=== PATIENT | female | born 1935 | race Caucasian/White ===

== ENCOUNTER 2017-05-17 10:46 | Emergency (ER) | payer BC, MEDICARE ==
--- NOTE | 2017-05-17 11:23 | ED ---
General Adult HPI - General Chief complaint: Chest Pain Stated complaint: Left side pain Time Seen by Provider: 05/17/17 11:06 Source: patient, RN notes reviewed, old records reviewed Mode of arrival: ambulatory Limitations: no limitations - History of Present Illness Initial comments: This is a 41-year-old female in the ER with left flank pain, left-sided rib pain , although it's her groin. Patient is a blood pressure. No history of heart disease or aortic issues. No history of kidney stones, no dysuria. No fevers. No bowel pain denies vomiting or diarrhea. Patient has not taken anything for pain. This is the third time patient states she's been evaluated in the emergency room for this pain. Never coming up with a A specific reason. At this time patient does have pain again on her left side, worse with movement - Related Data Home Medications Medication Instructions Recorded Confirmed Albuterol Inhaler [Ventolin Hfa 2 puff INHALATION RT-QID PRN 05/17/17 05/17/17 Inhaler] Fluticasone Nasal [place] [Flonase 2 sprays EA NOSTRIL DAILY 05/17/17 05/17/17 Nasal [place]] Fluticasone/Salmeterol [Advair 1 puff INHALATION RT-BID 05/17/17 05/17/17 100-50 Diskus] Furosemide [Lasix] 40 mg PO DAILY 05/17/17 05/17/17 Lisinopril [Lisinopril] 40 mg PO DAILY 05/17/17 05/17/17 Loratadine [Claritin] 10 mg PO DAILY 05/17/17 05/17/17 Simvastatin [Simvastatin] 40 mg PO HS 05/17/17 05/17/17 amLODIPine [Norvasc] 10 mg PO DAILY 05/17/17 05/17/17 Allergies Allergy/AdvReac Type Severity Reaction Status Date / Time No Known Allergies Allergy Verified 05/17/17 11:00 Review of Systems ROS Statement: Those systems with pertinent positive or pertinent negative responses have been documented in the HPI. ROS Other: All systems not noted in ROS Statement are negative. Past Medical History Past Medical History: Heart Failure, COPD, Hyperlipidemia, Hypertension History of Any Multi-Drug Resistant Organisms: None Reported Past Surgical History: Tubal Ligation Past Psychological History: No Psychological Hx Reported Smoking Status: Current every day smoker Past Alcohol Use History: Rare Past Drug Use History: None Reported General Exam Limitations: no limitations General appearance: alert, in no apparent distress Head exam: Present: atraumatic, normocephalic, normal inspection Eye exam: Present: normal appearance, PERRL, EOMI. Absent: scleral icterus, conjunctival injection, periorbital swelling ENT exam: Present: normal exam, mucous membranes moist Neck exam: Present: normal inspection. Absent: tenderness, meningismus, lymphadenopathy Respiratory exam: Present: normal lung sounds bilaterally. Absent: respiratory distress, wheezes, rales, rhonchi, stridor Cardiovascular Exam: Present: regular rate, normal rhythm, normal heart sounds. Absent: systolic murmur, diastolic murmur, rubs, gallop, clicks GI/Abdominal exam: Present: soft, normal bowel sounds. Absent: distended, tenderness, guarding, rebound, rigid Extremities exam: Present: normal inspection, full ROM, normal capillary refill. Absent: tenderness, pedal edema, joint swelling, calf tenderness Back exam: Present: normal inspection Neurological exam: Present: alert, oriented X3, CN II-XII intact Psychiatric exam: Present: normal affect, normal mood Skin exam: Present: warm, dry, intact, normal color. Absent: rash Course Vital Signs 05/17/17 05/17/17 10:55 13:32 Temperature 97.2 F L 98.1 F Pulse Rate 100 90 Respiratory 18 20 Rate Blood Pressure 160/74 106/59 O2 Sat by Pulse 96 93 L Oximetry - Reevaluation(s) Reevaluation #1: 05/17/17 14:18 Patient is without requiring pain medication. No distress, unable to exacerbate pain with palpation EKG Findings - EKG Comments: EKG Findings:: EKG shows normal sinus around 95, CA 124, QRS 96, QTc 462 Medical Decision Making - Medical Decision Making 9I female in the ER for evaluation of left flank pain, chest pain, patient is in no acute distress labwork EKG chest x-ray and CT are normal. Patient will be discharged home to continue pain and Motrin for pain control - Lab Data Result diagrams: 05/17/17 11:30 05/17/17 11:30 Lab Results 05/17/17 05/17/17 05/17/17 Range/Units 11:30 11:30 11:30 WBC 7.3 (3.8-10.6) k/uL RBC 5.81 H (3.80-5.40) m/uL Hgb 17.4 H (11.4-16.0) gm/dL Hct 51.3 H (34.0-46.0) % MCV 88.3 (80.0-100.0) fL MCH 30.0 (25.0-35.0) pg MCHC 33.9 (31.0-37.0) g/dL RDW 13.5 (11.5-15.5) % Plt Count 300 (150-450) k/uL Neutrophils % 70 % Lymphocytes % 24 % Monocytes % 4 % Eosinophils % 1 % Basophils % 1 % Neutrophils # 5.1 (1.3-7.7) k/uL Lymphocytes # 1.7 (1.0-4.8) k/uL Monocytes # 0.3 (0-1.0) k/uL Eosinophils # 0.1 (0-0.7) k/uL Basophils # 0.0 (0-0.2) k/uL PT (9.0-12.0) sec INR (<1.2) APTT (22.0-30.0) sec Sodium 137 (137-145) mmol/L Potassium 4.5 (3.5-5.1) mmol/L Chloride 100 (98-107) mmol/L Carbon Dioxide 25 (22-30) mmol/L Anion Gap 12 mmol/L BUN 17 (7-17) mg/dL Creatinine 0.84 (0.52-1.04) mg/dL Est GFR (MDRD) Af Amer >60 (>60 ml/min/1.73 sqM) Est GFR (MDRD) Non-Af >60 (>60 ml/min/1.73 sqM) Glucose 112 H (74-99) mg/dL Calcium 10.2 (8.4-10.2) mg/dL Magnesium 1.8 (1.6-2.3) mg/dL Total Bilirubin 0.5 (0.2-1.3) mg/dL AST 39 H (14-36) U/L ALT 48 (9-52) U/L Alkaline Phosphatase 123 (38-126) U/L Total Creatine Kinase 104 (30-135) U/L CK-MB (CK-2) 3.9 H* (0.0-2.4) ng/mL CK-MB (CK-2) Rel Index 3.8 Troponin I <0.012 (0.000-0.034) ng/mL Total Protein 7.9 (6.3-8.2) g/dL Albumin 5.0 (3.5-5.0) g/dL Lipase 216 (23-300) U/L Urine Color Urine Appearance (Clear) Urine pH (5.0-8.0) Ur Specific [place] (1.001-1.035) Urine Protein (Negative) Urine Glucose (UA) (Negative) Urine Ketones (Negative) Urine Blood (Negative) Urine Nitrite (Negative) Urine Bilirubin (Negative) Urine Urobilinogen (<2.0) mg/dL Ur Leukocyte Esterase (Negative) Urine RBC (0-5) /hpf Ur Squamous Epith Cells (0-4) /hpf 05/17/17 05/17/17 Range/Units 11:30 13:14 WBC (3.8-10.6) k/uL RBC (3.80-5.40) m/uL Hgb (11.4-16.0) gm/dL Hct (34.0-46.0) % MCV (80.0-100.0) fL MCH (25.0-35.0) pg MCHC (31.0-37.0) g/dL RDW (11.5-15.5) % Plt Count (150-450) k/uL Neutrophils % % Lymphocytes % % Monocytes % % Eosinophils % % Basophils % % Neutrophils # (1.3-7.7) k/uL Lymphocytes # (1.0-4.8) k/uL Monocytes # (0-1.0) k/uL Eosinophils # (0-0.7) k/uL Basophils # (0-0.2) k/uL PT 10.5 (9.0-12.0) sec INR 1.0 (<1.2) APTT 23.9 (22.0-30.0) sec Sodium (137-145) mmol/L Potassium (3.5-5.1) mmol/L Chloride (98-107) mmol/L Carbon Dioxide (22-30) mmol/L Anion Gap mmol/L BUN (7-17) mg/dL Creatinine (0.52-1.04) mg/dL Est GFR (MDRD) Af Amer (>60 ml/min/1.73 sqM) Est GFR (MDRD) Non-Af (>60 ml/min/1.73 sqM) Glucose (74-99) mg/dL Calcium (8.4-10.2) mg/dL Magnesium (1.6-2.3) mg/dL Total Bilirubin (0.2-1.3) mg/dL AST (14-36) U/L ALT (9-52) U/L Alkaline Phosphatase (38-126) U/L Total Creatine Kinase (30-135) U/L CK-MB (CK-2) (0.0-2.4) ng/mL CK-MB (CK-2) Rel Index Troponin I (0.000-0.034) ng/mL Total Protein (6.3-8.2) g/dL Albumin (3.5-5.0) g/dL Lipase (23-300) U/L Urine Color Light Yellow Urine Appearance Clear (Clear) Urine pH 6.0 (5.0-8.0) Ur Specific [place] 1.004 (1.001-1.035) Urine Protein Negative (Negative) Urine Glucose (UA) Negative (Negative) Urine Ketones Negative (Negative) Urine Blood Small H (Negative) Urine Nitrite Negative (Negative) Urine Bilirubin Negative (Negative) Urine Urobilinogen <2.0 (<2.0) mg/dL Ur Leukocyte Esterase Negative (Negative) Urine RBC 2 (0-5) /hpf Ur Squamous Epith Cells <1 (0-4) /hpf - Radiology Data Radiology results: report reviewed (Chest x-ray negative, CT pelvis is negative) , image reviewed Disposition Clinical Impression: Flank pain, Left flank pain Disposition: HOME SELF-CARE Condition: Good Instructions: Flank Pain (ED) Referrals: Nomi Saab DO [Primary Care Provider] - 1-2 days
[2017-05-17 11:41] LABS: Basophils % (A) 1 %; CH 29.4; CHCM 33.5; Eosinophils # (A) 0.1 k/uL (0-0.7); Eosinophils % (A) 1 %; HCT 51.3 % (34.0-46.0); HGB 17.4 gm/dL (11.4-16.0); Luc % (Auto) 1; Lymphocytes # (A) 1.7 k/uL (1.0-4.8); Lymphocytes % (A) 24 %; MCHC 33.9 g/dL (31.0-37.0); MCV 88.3 fL (80.0-100.0); Mean Platelet Volume 6.9; Monocytes # (A) 0.3 k/uL (0-1.0); Monocytes % (A) 4 %; Neutrophils # (A) 5.1 k/uL (1.3-7.7); Neutrophils % (A) 70 %; RBC 5.81 m/uL (3.80-5.40); RDW 13.5 % (11.5-15.5); WBC 7.3 k/uL (3.8-10.6); WBC (Perox) 7.38
[2017-05-17 11:49] LABS: Partial Thromboplastin Time 23.9 sec (22.0-30.0); Prothrombin Time 10.5 sec (9.0-12.0)
[2017-05-17 11:53] LABS: ALT 48 U/L (9-52); AST 39 U/L (14-36); Alkaline Phosphatase 123 U/L (38-126); Anion Gap 12 mmol/L; Blood Urea Nitrogen 17 mg/dL (7-17); Calcium 10.2 mg/dL (8.4-10.2); Carbon Dioxide 25 mmol/L (22-30); Chloride 100 mmol/L (98-107); Glucose 112 mg/dL (74-99); Magnesium 1.8 mg/dL (1.6-2.3); Non-African American GFR(MDRD) >60 (>60 ml/min/1.73 sqM); Potassium 4.5 mmol/L (3.5-5.1); Sodium 137 mmol/L (137-145); Total Bilirubin 0.5 mg/dL (0.2-1.3); Total Protein 7.9 g/dL (6.3-8.2)
[2017-05-17 12:01] LABS: Creatine Kinase 104 U/L (30-135)
--- NOTE | 2017-05-17 12:12 | XR ---
EXAMINATION TYPE: XR chest 2V DATE OF EXAM: 05/17/2017 COMPARISON: Prior chest x-ray 11/23/2009, chest CT 12/28/2013 HISTORY: Chest pain TECHNIQUE: Frontal and lateral views of the chest are obtained. FINDINGS: There is no focal air space opacity, pleural effusion, or pneumothorax seen. The cardiac silhouette size is stable. There are prominent lung volumes. There are overlying cardiac leads. Bone mineralization is reduced. The osseous structures are intact. IMPRESSION: No acute cardiopulmonary process. Emphysema
[2017-05-17 12:14] LABS: Troponin I <0.012 ng/mL (0.000-0.034)
[2017-05-17 12:20] LABS: Creatine Kinase MB 3.9 ng/mL (0.0-2.4)
[2017-05-17 13:32] LABS: Appearance,Urine Clear (Clear); Bilirubin,Urine Negative (Negative); Glucose,Urine (UA) Negative (Negative); Ketones,Urine Negative (Negative); Leukocyte Esterase,Urine Negative (Negative); Nitrite,Urine Negative (Negative); Particle Count 298; Protein,Urine Negative (Negative); RBC,Urine 2 /hpf (0-5); Specific Gravity,Urine 1.004 (1.001-1.035); Squamous Epithelial Cell,Urine <1 /hpf (0-4); UA Billing (MACRO vs. MICRO) MICRO; Urobilinogen,Urine <2.0 mg/dL (<2.0)
--- NOTE | 2017-05-17 13:36 | CT ---
EXAMINATION TYPE: CT abdomen pelvis wo con DATE OF EXAM: 05/17/2017 COMPARISON: None HISTORY: 81-year-old female left-sided abdominal pain. CT DLP: 210.1 mGycm. Automated exposure control for dose reduction was used. TECHNIQUE: Contiguous axial scanning of the abdomen and pelvis without IV contrast. Coronal and sagit krystal reconstructions performed. FINDINGS: The heart is normal size with trace anterior pericardial thickening. Coronary vessel calcifications a re present in remarkable for coronary artery disease. Mildly ectatic lower descending thoracic aorta at 2.6 cm. Visualized lung bases show no consolidation or pleural effusion. Noncontrast appearance of the liver, gallbladder, right adrenal gland, spleen, pancreas show no gross abnormality. Subcentimeter hypodensity lower pole right kidney too small fractured CT characterization. A couple h ypodense lesions are present in the left kidney measuring up to 3.0 cm and a second lesion measuring 1.5 cm, probable cysts. There is a 2.2 cm low-density nodule within the left adrenal gland with density of -16 [place] uni ts compatible with a lipid rich adrenal adenoma. Moderate atherosclerotic calcifications within the infrarenal abdominal aorta and iliac arteries. No dilated small bowel, free fluid, or free air. No mesenteric or retroperitoneal lymphadenopathy. Sigmoid diverticulosis without pericolonic inflammatory change seen. Bladder is nondistended. Uterus is visualized. No adnexal abnormality or pelvic free fluid seen. Bones: Mild degenerative changes at the hips. Facet arthropathy lower lumbar spine with grade 1 anter olisthesis at L4-L5. No osseous destructive process. IMPRESSION: 1. No acute inflammatory process identified in the abdomen or pelvis to explain the patient's sympto ms. 2. 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 3. Sigmoid diverticulosis. 4. Hypodense lesions in both kidneys measuring up to 3.0 cm, suspected cysts. Recommend 6 month foll ow-up renal ultrasound to exclude any enlarging lesions.
[2017-05-17 14:18] VITALS: BP 124/62; PULSE 87; RESP 16; TEMP 97.6
== END 2017-05-17 14:19 | disposition home or self-care (01) ==
LOC: EC 10:46
DX: R10.32 Left lower quadrant pain (principal); R07.81 Pleurodynia; E78.5 Hyperlipidemia, unspecified; I11.0 Hypertensive heart disease with heart failure; I50.9 Heart failure, unspecified; J44.9 Chronic obstructive pulmonary disease, unspecified; F17.200 Nicotine dependence, unspecified, uncomplicated; Z79.51 Long term (current) use of inhaled steroids; Z79.899 Other long term (current) drug therapy
CPT/HCPCS: 36415; 71020; 74176; 80053; 81001; 82550; 82553; 83690; 83735; 84484; 85025; 85610; 85730; 87086; 93005; 99285

== ENCOUNTER → 2017-11-25 | Outpatient (CLI) | payer MEDICARE ==
--- NOTE | 2017-11-25 15:48 | US ---
EXAMINATION TYPE: US kidneys/renal and bladder DATE OF EXAM: 11/25/2017 COMPARISON: CT 05/17/2017 CLINICAL HISTORY: 82-year-old female N28.1 Cyst of kidney. TECHNIQUE: Multiple sonographic images of the kidneys and bladder are obtained. FINDINGS: Right Kidney: 9.2 x 5.8 x 4.1 cm without hydronephrosis. There is a small 1.1 cm cortical cyst at th e lower pole. Internal echoes are felt to be artifactual. Nonspecific punctate 3 mm calcification at the lower pole area Left Kidney: 10.1 x 4.9 x 4.1 cm without hydronephrosis. Multiple renal cysts are present, largest in the midpole measuring 1.8 cm. A 3.8 cm cyst in the lower pole shows a calcified internal septation. An adjacent 9 mm lower pole cortical cyst is also noted. A 1.8 cm hypoechoic lesion above the left kidney appears to correspond to the lipid rich adrenal chava odin seen on 05/17/2017 CT. Underdistention of the bladder limits its evaluation. Neither ureteral jet is seen during the course of 3 minutes of observation. Post Void Residual Volume: 4.4 mL, within normal limits. IMPRESSION: 1. No hydronephrosis. 2. Bilateral renal cysts, left more numerous than right 3. Largest cyst is on the left measuring 3.8 cm and shows a calcified internal septation. This is mil dly complex and a 6 month follow-up ultrasound can reassess. 4. Left adrenal lesion measuring 1.8 cm compatible with a lipid rich adrenal adenoma seen on 7 ultrasound.
== END | disposition home or self-care (01) ==
LOC: RADUSWWP 13:22
PROVIDERS: ATTEND Family Medicine
DX: N28.1 Cyst of kidney, acquired (principal); N28.89 Other specified disorders of kidney and ureter; E27.8 Other specified disorders of adrenal gland
CPT/HCPCS: 71250; 76770

== ENCOUNTER → 2017-11-25 | Outpatient (CLI) | payer MEDICARE ==
--- NOTE | 2017-11-25 13:48 | CT ---
EXAMINATION TYPE: CT chest wo con DATE OF EXAM: 11/25/2017 COMPARISON: CTA chest August 02, 2017 and older studies HISTORY: Pulmonary nodule CT DLP: 487 mGycm. Automated Exposure Control for Dose Reduction was Utilized. TECHNIQUE: CT scan of the thorax is performed without IV contrast. FINDINGS: LUNGS: Moderate to severe underlying emphysematous change is redemonstrated. There is no suspicious p arenchymal nodule or mass. There is persistent bibasilar linear scarring. There is persistent right l ower lobe nodule measuring 1.4 x 0.9 cm axial image 46 current study this is stable or less prominent in size versus most recent CT, nodule at this level has been present since 2009, nodule is not signi ficantly increased in size overall from December 28, 2013 study. No pleural effusion or pneumothorax is present. No new suspicious nodules or masses are seen. Tracheobronchial tree is patent. MEDIASTINUM: Lack of IV contrast is noted to limit evaluation for mediastinal and especially hilar ad enopathy. There are no definitive greater than 1 cm hilar or mediastinal lymph nodes. Prominent but s ubcentimeter thoracic lymph nodes are redemonstrated No cardiomegaly is seen. There is three-vessel coronary artery calcification and/or stents all present. Tiny pericardial effusion is noted. OTHER: There is redemonstration of 1.8 x 1.3 cm low dense mass left adrenal gland consistent with bhavana ign lipid rich adenoma unchanged from 2014 CT. IMPRESSION: Overall stable findings from December 28, 2013 CT, documentation of 2 year stability is cons istent with benign etiology. No worrisome new mass or adenopathy is noted.
== END | disposition home or self-care (01) ==
LOC: RADCTMAIN 13:00
PROVIDERS: ATTEND Internal Medicine Sleep Medicine
DX: R91.1 Solitary pulmonary nodule (principal)
CPT/HCPCS: 71250

== ENCOUNTER → 2018-05-13 | Outpatient (CLI) | payer MEDICARE ==
--- NOTE | 2018-05-13 15:24 | US ---
EXAMINATION TYPE: US kidneys/renal and bladder DATE OF EXAM: 05/13/2018 COMPARISON: US, CT CLINICAL HISTORY: N28.1 cyst of kidney. EXAM MEASUREMENTS: Right Kidney: 10.3 x 4.9 x 4.0 cm Left Kidney: 10.9 x 4.5 x 4.3 cm Post Void Residual Volume: 0 mL as bladder appears empty Right Kidney: lower pole cortical simple cyst = 1.2 x 0.9 x 1.1cm Left Kidney: upper cortex a hyperechoic round mass (possible angiomyolipoma) is noted = 0.3 x 0.3 x 0 .4cm; mid lower cortex a simple cyst is seen = 0.9 x 0.9 x 0.8cm; lower pole cortical cyst is seen as septated cyst vs. adjacent cortical cysts with one as complex cyst = 3.2 x 4.2 x 2.9cm; hyperechoic parallel lines noted on image 51 suggests vessel wall calcifications Bladder: wnl Bilateral Jets seen: no, only left ureteral jet was seen after 3 minute observation Normal Post Void Residual: yes, as completely emptied There is no evidence for hydronephrosis at this point in time. No nephrolithiasis is seen. The urin julita bladder is anechoic. IMPRESSION: 1. Inferior pole left renal cyst. This does not have posterior wall enhancement cannot be classified as a simple cyst. Follow-up monitoring is recommended. 2. Echogenic area 0.3 cm upper left renal cortex. Angiomyolipoma could be considered. Follow-up is re commended.
== END | disposition home or self-care (01) ==
LOC: RADUSWWP 08:02
PROVIDERS: ATTEND Family Medicine
DX: N28.1 Cyst of kidney, acquired (principal)
CPT/HCPCS: 76770

== ENCOUNTER 2018-09-15 14:47 | Emergency (ER) | payer MEDICARE ==
[2018-09-15 15:49] LABS: Basophils % (A) 0 %; Eosinophils # (A) 0.3 k/uL (0-0.7); Eosinophils % (A) 5 %; HCT 40.7 % (34.0-46.0); HGB 12.7 gm/dL (11.4-16.0); Hypochromasia Slight; Lymphocytes # (A) 1.3 k/uL (1.0-4.8); Lymphocytes % (A) 23 %; MCH 27.6 pg (25.0-35.0); MCHC 31.2 g/dL (31.0-37.0); MCV 88.6 fL (80.0-100.0); Mean Platelet Volume 6.3; Monocytes # (A) 0.4 k/uL (0-1.0); Monocytes % (A) 6 %; Neutrophils # (A) 3.5 k/uL (1.3-7.7); Neutrophils % (A) 63 %; Platelet Count 379 k/uL (150-450); RDW 13.5 % (11.5-15.5); WBC 5.5 k/uL (3.8-10.6)
[2018-09-15 15:57] LABS: Partial Thromboplastin Time 27.5 sec (22.0-30.0); Prothrombin Time 10.6 sec (9.0-12.0)
[2018-09-15 16:01] LABS: Albumin 4.4 g/dL (3.5-5.0); Calcium 9.9 mg/dL (8.4-10.2); Potassium 3.7 mmol/L (3.5-5.1); Total Bilirubin 0.4 mg/dL (0.2-1.3)
[2018-09-15 16:03] LABS: Creatine Kinase 122 U/L (30-135)
[2018-09-15 16:17] LABS: Creatine Kinase MB 3.6 ng/mL (0.0-2.4); Troponin I <0.012 ng/mL (0.000-0.034)
[2018-09-15] MEDS ORDERED: IPRATROPIUM-ALBUTEROL 3 ML NEB INHALATION STA (16:25)
--- NOTE | 2018-09-15 16:28 | ED ---
General Adult HPI - General Chief complaint: Shortness of Breath Stated complaint: JUDY Time Seen by Provider: 09/15/18 16:10 Source: patient, RN notes reviewed Mode of arrival: ambulatory Limitations: no limitations - History of Present Illness Initial comments: Patient is a pleasant 82-year-old female presenting to the emergency Department with complaints of difficulty breathing. Symptoms have been present for 2 weeks , worse over the past week. Patient does have cough with yellow productive sputum. No fevers. Patient complains of congestion in her chest and sinuses. No chest pain. Symptoms are similar to previous COPD. - Related Data Home Medications Medication Instructions Recorded Confirmed Albuterol Inhaler [Ventolin Hfa 2 puff INHALATION RT-QID PRN 05/17/17 09/15/18 Inhaler] Fluticasone Nasal [place] [Flonase 2 sprays EA NOSTRIL DAILY 05/17/17 09/15/18 Nasal [place]] Fluticasone/Salmeterol [Advair 1 puff INHALATION RT-BID 05/17/17 09/15/18 100-50 Diskus] Furosemide [Lasix] 40 mg PO DAILY 05/17/17 09/15/18 Lisinopril 40 mg PO DAILY 05/17/17 09/15/18 Simvastatin 40 mg PO HS 05/17/17 09/15/18 amLODIPine [Norvasc] 10 mg PO DAILY 05/17/17 09/15/18 Aspirin [Children's Aspirin] 81 mg PO DAILY 08/02/17 09/15/18 Cholecalciferol [Vitamin D3] 2,000 unit PO DAILY 08/02/17 09/15/18 Vit C/E/Zn/Coppr/Lutein/Zeaxan 1 cap PO DAILY 08/02/17 09/15/18 [Preservision Areds 2 Softgel] Vitamin E (Dl,Tocopheryl Acet) 400 unit PO DAILY 08/02/17 09/15/18 [Vitamin E] Budesonide [Pulmicort] 0.5 mg INHALATION RT-BID 09/15/18 09/15/18 Ipratropium-Albuterol Nebulize 3 ml INHALATION RT-QID 09/15/18 09/15/18 [Duoneb 0.5 mg-3 mg/3 ml Soln] Previous Rx's Medication Instructions Recorded Nystatin 100,000 Unit/ml Susp 500,000 unit PO QID #20 cup 08/07/17 [Mycostatin Oral Susp] Pantoprazole [Protonix] 40 mg PO AC-BRKFST #15 tablet. 08/07/17 Sodium Chloride 0.65% Nasal [Deep 2 spray NASAL QID PRN spray 08/07/17 Sea (Saline)] Azithromycin [Zithromax Z-pack] 250 mg PO DIRECTED #6 tab 09/15/18 predniSONE 20 mg PO BID #10 tab 09/15/18 Allergies Allergy/AdvReac Type Severity Reaction Status Date / Time No Known Allergies Allergy Verified 09/15/18 16:38 Review of Systems ROS Statement: Those systems with pertinent positive or pertinent negative responses have been documented in the HPI. ROS Other: All systems not noted in ROS Statement are negative. Constitutional: Reports: fever Eyes: Denies: eye pain ENT: Reports: congestion Respiratory: Reports: cough, dyspnea Cardiovascular: Denies: chest pain Endocrine: Denies: fatigue Gastrointestinal: Denies: abdominal pain Genitourinary: Denies: dysuria Musculoskeletal: Denies: back pain Skin: Denies: rash Neurological: Denies: weakness Past Medical History Past Medical History: Heart Failure, COPD, Hyperlipidemia, Hypertension Additional Past Medical History / Comment(s): Recent sinus infection, PMH indicates CHF but pt does not recall this. History of Any Multi-Drug Resistant Organisms: None Reported Past Surgical History: Tubal Ligation Additional Past Surgical History / Comment(s): Bilateral cataract removals with lens. Past Anesthesia/Blood Transfusion Reactions: No Reported Reaction Past Psychological History: No Psychological Hx Reported Smoking Status: Never smoker Past Alcohol Use History: Rare Past Drug Use History: None Reported - Past Family History Father Family Medical History: Congestive Heart Failure (CHF) Additional Family Medical History / Comment(s): Father of CHF at the age of 70yrs. Mother Family Medical History: Cancer Additional Family Medical History / Comment(s): Mother had breast cancer and gastric ulcers. General Exam Limitations: no limitations General appearance: alert, in no apparent distress Head exam: Present: atraumatic Eye exam: Present: normal appearance, PERRL ENT exam: Present: normal oropharynx Neck exam: Present: normal inspection Respiratory exam: Present: decreased breath sounds Cardiovascular Exam: Present: regular rate, normal rhythm GI/Abdominal exam: Present: soft. Absent: tenderness Extremities exam: Present: normal inspection. Absent: pedal edema, calf tenderness Neurological exam: Present: alert Psychiatric exam: Present: normal affect, normal mood Skin exam: Present: normal color Course Vital Signs 09/15/18 09/15/18 09/15/18 14:51 14:55 16:48 Temperature 97.4 F L Pulse Rate 94 74 Respiratory 18 20 Rate Blood Pressure 138/83 125/70 O2 Sat by Pulse 91 L 94 L 95 Oximetry 09/15/18 09/15/18 16:49 16:56 Temperature Pulse Rate 88 88 Respiratory Rate Blood Pressure O2 Sat by Pulse Oximetry EKG Findings - EKG Comments: EKG Findings:: Normal sinus rhythm 91. [place] 1:30. QRS 100. QT 374. QTC 460. Normal axis. Normal QRS. No acute ST change. Medical Decision Making - Medical Decision Making Patient reevaluated and resting comfortably in bed. Patient feels much better following nebulizer treatment. Lung sounds have increased air exchange. Patient updated on results and need for follow-up. Patient is comfortable with discharge home. Pulse ox 95% on room air. - Lab Data Result diagrams: 09/15/18 15:12 09/15/18 15:12 Lab Results 09/15/18 09/15/18 09/15/18 Range/Units 15:12 15:12 15:12 WBC 5.5 (3.8-10.6) k/uL RBC 4.60 (3.80-5.40) m/uL Hgb 12.7 (11.4-16.0) gm/dL Hct 40.7 (34.0-46.0) % MCV 88.6 (80.0-100.0) fL MCH 27.6 (25.0-35.0) pg MCHC 31.2 (31.0-37.0) g/dL RDW 13.5 (11.5-15.5) % Plt Count 379 (150-450) k/uL Neutrophils % 63 % Lymphocytes % 23 % Monocytes % 6 % Eosinophils % 5 % Basophils % 0 % Neutrophils # 3.5 (1.3-7.7) k/uL Lymphocytes # 1.3 (1.0-4.8) k/uL Monocytes # 0.4 (0-1.0) k/uL Eosinophils # 0.3 (0-0.7) k/uL Basophils # 0.0 (0-0.2) k/uL Hypochromasia Slight PT (9.0-12.0) sec INR (<1.2) APTT (22.0-30.0) sec Sodium 136 L (137-145) mmol/L Potassium 3.7 (3.5-5.1) mmol/L Chloride 99 (98-107) mmol/L Carbon Dioxide 24 (22-30) mmol/L Anion Gap 13 mmol/L BUN 20 H (7-17) mg/dL Creatinine 0.78 (0.52-1.04) mg/dL Est GFR (CKD-EPI)AfAm 83 (>60 ml/min/1.73 sqM) Est GFR (CKD-EPI)NonAf 72 (>60 ml/min/1.73 sqM) Glucose 118 H (74-99) mg/dL Calcium 9.9 (8.4-10.2) mg/dL Total Bilirubin 0.4 (0.2-1.3) mg/dL AST 32 (14-36) U/L ALT 34 (9-52) U/L Alkaline Phosphatase 122 (38-126) U/L Total Creatine Kinase 122 (30-135) U/L CK-MB (CK-2) 3.6 H (0.0-2.4) ng/mL CK-MB (CK-2) Rel Index 3.0 Troponin I <0.012 (0.000-0.034) ng/mL NT-Pro-B Natriuret Pep pg/mL Total Protein 7.0 (6.3-8.2) g/dL Albumin 4.4 (3.5-5.0) g/dL 09/15/18 09/15/18 Range/Units 15:12 17:00 WBC (3.8-10.6) k/uL RBC (3.80-5.40) m/uL Hgb (11.4-16.0) gm/dL Hct (34.0-46.0) % MCV (80.0-100.0) fL MCH (25.0-35.0) pg MCHC (31.0-37.0) g/dL RDW (11.5-15.5) % Plt Count (150-450) k/uL Neutrophils % % Lymphocytes % % Monocytes % % Eosinophils % % Basophils % % Neutrophils # (1.3-7.7) k/uL Lymphocytes # (1.0-4.8) k/uL Monocytes # (0-1.0) k/uL Eosinophils # (0-0.7) k/uL Basophils # (0-0.2) k/uL Hypochromasia PT 10.6 (9.0-12.0) sec INR 1.0 (<1.2) APTT 27.5 (22.0-30.0) sec Sodium (137-145) mmol/L Potassium (3.5-5.1) mmol/L Chloride (98-107) mmol/L Carbon Dioxide (22-30) mmol/L Anion Gap mmol/L BUN (7-17) mg/dL Creatinine (0.52-1.04) mg/dL Est GFR (CKD-EPI)AfAm (>60 ml/min/1.73 sqM) Est GFR (CKD-EPI)NonAf (>60 ml/min/1.73 sqM) Glucose (74-99) mg/dL Calcium (8.4-10.2) mg/dL Total Bilirubin (0.2-1.3) mg/dL AST (14-36) U/L ALT (9-52) U/L Alkaline Phosphatase (38-126) U/L Total Creatine Kinase (30-135) U/L CK-MB (CK-2) (0.0-2.4) ng/mL CK-MB (CK-2) Rel Index Troponin I (0.000-0.034) ng/mL NT-Pro-B Natriuret Pep 134 pg/mL Total Protein (6.3-8.2) g/dL Albumin (3.5-5.0) g/dL - Radiology Data Radiology results: image reviewed (Chest x-ray has findings consistent with COPD ) Disposition Clinical Impression: COPD exacerbation Disposition: HOME SELF-CARE Condition: Stable Instructions: COPD (Chronic Obstructive Pulmonary Disease) (ED) Additional Instructions: Please follow-up with your pulmonary doctor or primary care physician in the next day or 2 for recheck. Return for fevers, difficulty breathing, pain, worsening or changing symptoms or other concerns. Prescriptions: Azithromycin [Zithromax Z-pack] 250 mg PO DIRECTED #6 tab predniSONE 20 mg PO BID #10 tab Is patient prescribed a controlled substance at d/c from ED?: No Referrals: Nomi Saab DO [Primary Care Provider] - 1-2 days Time of Disposition: 18:00
--- NOTE | 2018-09-15 17:07 | XR ---
EXAMINATION TYPE: XR chest 2V DATE OF EXAM: 09/15/2018 COMPARISON: 08/02/2017 HISTORY: Short of breath TECHNIQUE: Frontal and lateral views of the chest are obtained. FINDINGS: There is no heart failure nor confluent pneumonic infiltrate. Heart size is normal. Costop hrenic angles are clear. There is mild flattening of the diaphragm. There is osteopenia. There is sli ght anterior wedging of T6 with 15% loss of height. IMPRESSION: There is probably COPD. No active cardiopulmonary disease. No change compared to old exa m.
[2018-09-15 18:08] VITALS: BP 130/60; PULSE 77; RESP 18; TEMP 98.8
== END 2018-09-15 18:07 | disposition home or self-care (01) ==
LOC: EC 14:47
DX: J44.1 Chronic obstructive pulmonary disease with (acute) exacerbation (principal); E78.5 Hyperlipidemia, unspecified; I11.0 Hypertensive heart disease with heart failure; I50.9 Heart failure, unspecified; Z79.51 Long term (current) use of inhaled steroids; Z79.82 Long term (current) use of aspirin; Z79.899 Other long term (current) drug therapy
CPT/HCPCS: 36415; 71046; 80053; 82550; 82553; 83880; 84484; 85025; 85610; 85730; 93005; 94640; 99285

== ENCOUNTER → 2018-10-14 | Outpatient (CLI) | payer MEDICARE ==
--- NOTE | 2018-10-14 16:05 | US ---
EXAMINATION TYPE: US kidneys/renal and bladder DATE OF EXAM: 10/14/2018 COMPARISON: 05/13/2018 and 11/25/2017 CLINICAL HISTORY: 83-year-old female N28.1 cyst of kidney, acquired. History of kidney cysts TECHNIQUE: Multiple sonographic images of the kidneys and bladder are obtained. FINDINGS: EXAM MEASUREMENTS: Right Kidney: 9.3 x 4.3 x 5.3 cm Left Kidney: 11.4 x 4.5 x 4.5 cm Right Kidney: 9 mm cyst in the lower pole. No hydronephrosis. Left Kidney: cystic areas noted, largest is complex at the lower pole with lobulations, septations, a nd calcifications measuring 3.7 x 3.1 x 3.0cm. Previously measured 4.2 x 3.2 x 2.9 cm. Measured at 3. 8 cm on 11/25/2017. Echogenic focus in the upper pole was also seen previously measuring 6 mm. No hyd ronephrosis seen. Bladder: appears wnl Bilateral Jets seen: no There is no evidence for hydronephrosis at this point in time. No nephrolithiasis is seen. No kelsi s are identified. The urinary bladder is anechoic. Bilateral ureteral jets are seen. IMPRESSION: 1. No hydronephrosis. 2. Bilateral renal cysts redemonstrated. 3. Again, largest cyst is lobulated, complex with septations and calcifications at the left lower eulalia e currently measuring 3.7 x 3.1 x 3.0 cm. It was measured at 4.2 x 3.2 x 2.9 cm on 05/13/2018 and 3.8 c m on 11/25/2017. Relatively stable for the last year. Recommend renal mass protocol CT or MRI to wanda contreras as to the Bosniak classification of this lesion. This can help determine future follow -up.
== END ==
LOC: RADUSWWP 13:28
PROVIDERS: ATTEND Family Medicine
DX: N28.1 Cyst of kidney, acquired (principal)
CPT/HCPCS: 76770

== ENCOUNTER → 2018-10-24 | Outpatient (CLI) | payer MEDICARE ==
--- NOTE | 2018-10-24 12:44 | CT ---
EXAMINATION TYPE: CT abdomen wo con DATE OF EXAM: 10/24/2018 COMPARISON: May 17, 2017 HISTORY: renal mass CT DLP: 358 mGycm Examination of the solid and hollow viscera is limited given the lack of contrast. FINDINGS: LUNG BASES: 1.8 cm round pulmonary nodule at the right lung base. Nodule is stable dating back to 201 0. Additional parenchymal scarring noted. No additional nodules seen. LIVER/GB: The gallbladder is unremarkable. No space-occupying hepatic lesion. PANCREAS: No pancreatic mass identified. No inflammatory process seen. SPLEEN: No evidence for splenomegaly. No intrasplenic lesions seen. ADRENALS: Stable lipid rich left adrenal adenoma. No evidence for thickening. KIDNEYS: Stable hypoattenuating lesion lower pole left kidney. No nephrolithiasis. No hydronephrosis. BOWEL: Appendix has a normal appearance. No evidence of bowel obstruction. No inflammatory process. Lymph nodes: No evidence for adenopathy greater than 1 cm. Abdominal aorta: Atheromatous changes seen. No evidence for aneurysm. Genital organs: No significant abnormality. Other: No significant abnormality. IMPRESSION: 1. Stable hypoattenuating lesion left kidney likely reflecting a cyst. 2. Stable temperature left adrenal adenoma. 3. Stable right basilar pulmonary nodule.
== END | disposition home or self-care (01) ==
LOC: RADCTMAIN 11:08
PROVIDERS: ATTEND Family Medicine
DX: N28.89 Other specified disorders of kidney and ureter (principal); D35.02 Benign neoplasm of left adrenal gland
CPT/HCPCS: 36415; 74150; 82565; 84520

== ENCOUNTER 2018-12-26 11:29 | Emergency (ER) | payer MEDICARE ==
[2018-12-26 12:22] VITALS: RESP 14; TEMP 98
--- NOTE | 2018-12-26 12:22 | ED ---
General Adult HPI - General Chief complaint: Chest Pain Stated complaint: Pain in L Side, SOB Time Seen by Provider: 12/26/18 11:56 Source: patient Mode of arrival: wheelchair Limitations: no limitations - History of Present Illness Initial comments: Dictation was produced using [employer] dictation software. please excuse any grammatical, word or spelling errors. Chief Complaint: 83-year-old female past. History of COPD presents with dyspnea and left-sided chest pain. History of Present Illness: Patient is a 83-year-old female. She states that she has chronic history of breathing difficulties secondary to COPD. Patient has been seen approximately 3 times in the last week by pulmonology. Patient's been started on steroids, inhaled steroids and breathing treatments. She states that her symptoms have not been improving. Today patient states she had some pain to her left lateral chest. She states that is located right under the left armpit. Denies any trauma to the area. Pain is worse with various movements. She reports that her dyspnea is exacerbated by exertion. She was told by pulmonology at her dyspnea may be related to congestive heart failure and he would recommend her getting an echocardiogram. The ROS documented in this emergency department record has been reviewed and confirmed by me. Those systems with pertinent positive or negative responses have been documented in the HPI. All other systems are other negative and/or noncontributory. PHYSICAL EXAM: General Impression: Alert and oriented x3, not in acute distress HEENT: Normocephalic atraumatic, extra-ocular movements intact, pupils equal and reactive to light bilaterally, mucous membranes moist. Cardiovascular: Heart regular rate and rhythm, S1&S2 audible, no murmurs, rubs or gallops Chest: Lungs clear to auscultation bilaterally, no rhonchi, no wheeze, no rales Abdomen: Bowel sounds present, abdomen soft, non-tender, non-distended, no organomegaly Musculoskeletal: Pulses present and equal in all extremities, no peripheral edema Motor: no focal deficits noted Neurological: CN II-XII grossly intact, no focal motor or sensory deficits noted Skin: Intact with no visualized rashes Psych: Normal affect and mood ED course: 83-year-old female says chief complaint of dyspnea and left axillary pain. As upon arrival shows heart rate of 110, rest of vital signs within acceptable limits. Axillary pain is reproducible with palpation to the site. She does not have any pain concerning for acute coronary syndrome. no clinical suspicion of PE at this time. Laboratory evaluation obtained. CBC unremarkable. Coag panel unremarkable. Metabolic panel is unremarkable. Cardiac enzymes negative. No elevated prematurity peptide. Chest x-ray is unremarkable. Patient appears comfortable at this time. Patient given a lidocaine patch at site of tenderness to left axilla. There is suspicion that patient's symptoms reflect acute on chronic COPD. Patient is currently on appropriate medications and she has follow-up with pulmonology. at this point feel patient is clear for discharge. She is well-appearing not hypoxic and showing no signs of respiratory distress. EKG interpretation: Ventricular rate 108, sinus tachycardia, NH interval 112, care is 80, QTc 442. No NH prolongation, no QTC prolongation, no ST or T-wave changes noted. Overall, this EKG is unremarkable - Related Data Home Medications Medication Instructions Recorded Confirmed Albuterol Inhaler [Ventolin Hfa 2 puff INHALATION RT-QID PRN 05/17/17 12/26/18 Inhaler] Fluticasone Nasal [place] [Flonase 2 sprays EA NOSTRIL DAILY 05/17/17 12/26/18 Nasal [place]] Furosemide [Lasix] 40 mg PO DAILY 05/17/17 12/26/18 Lisinopril 40 mg PO DAILY 05/17/17 12/26/18 Simvastatin 40 mg PO HS 05/17/17 12/26/18 amLODIPine [Norvasc] 10 mg PO DAILY 05/17/17 12/26/18 Aspirin [Children's Aspirin] 81 mg PO DAILY 08/02/17 12/26/18 Cholecalciferol [Vitamin D3] 2,000 unit PO DAILY 08/02/17 12/26/18 Vit C/E/Zn/Coppr/Lutein/Zeaxan 1 cap PO DAILY 08/02/17 12/26/18 [Preservision Areds 2 Softgel] Budesonide [Pulmicort] 0.5 mg INHALATION RT-BID 09/15/18 12/26/18 Ipratropium-Albuterol Nebulize 3 ml INHALATION RT-QID PRN 09/15/18 12/26/18 [Duoneb 0.5 mg-3 mg/3 ml Soln] Amoxicillin 500 mg PO Q8H 12/26/18 12/26/18 Calcium Carbonate 500 mg PO DAILY 12/26/18 12/26/18 Formoterol Fumarate [Perforomist] 20 mcg INHALATION RT-BID 12/26/18 12/26/18 Loratadine [Claritin] 10 mg PO DAILY 12/26/18 12/26/18 Montelukast [Singulair] 10 mg PO DAILY 12/26/18 12/26/18 Ranitidine HCl [Zantac] 150 mg PO BID 12/26/18 12/26/18 Zinc 50 mg PO DAILY 12/26/18 12/26/18 predniSONE See Taper PO DAILY 12/26/18 12/26/18 Allergies Allergy/AdvReac Type Severity Reaction Status Date / Time No Known Allergies Allergy Verified 12/26/18 11:47 Review of Systems ROS Statement: Those systems with pertinent positive or pertinent negative responses have been documented in the HPI. ROS Other: All systems not noted in ROS Statement are negative. Past Medical History Past Medical History: Heart Failure, COPD, Hyperlipidemia, Hypertension Additional Past Medical History / Comment(s): Recent sinus infection, PMH indicates CHF but pt does not recall this. History of Any Multi-Drug Resistant Organisms: None Reported Past Surgical History: Tubal Ligation Additional Past Surgical History / Comment(s): Bilateral cataract removals with lens. Past Anesthesia/Blood Transfusion Reactions: No Reported Reaction Past Psychological History: No Psychological Hx Reported Smoking Status: Never smoker Past Alcohol Use History: Rare Past Drug Use History: None Reported - Past Family History Father Family Medical History: Congestive Heart Failure (CHF) Additional Family Medical History / Comment(s): Father of CHF at the age of 70yrs. Mother Family Medical History: Cancer Additional Family Medical History / Comment(s): Mother had breast cancer and gastric ulcers. General Exam Limitations: no limitations Course Vital Signs 12/26/18 12/26/18 12/26/18 11:32 12:17 12:21 Temperature 98.3 F 98.0 F Pulse Rate 110 H 106 H Pulse Rate [ 90 Tobacco Conditioner ] Respiratory 18 14 Rate Blood Pressure 151/67 130/73 O2 Sat by Pulse 95 94 L Oximetry Medical Decision Making - Lab Data Result diagrams: 12/26/18 12:11 12/26/18 12:11 Lab Results 12/26/18 12/26/18 12/26/18 Range/Units 12:11 12:11 12:11 WBC 7.0 (3.8-10.6) k/uL RBC 4.64 (3.80-5.40) m/uL Hgb 13.2 (11.4-16.0) gm/dL Hct 40.8 (34.0-46.0) % MCV 87.9 (80.0-100.0) fL MCH 28.5 (25.0-35.0) pg MCHC 32.4 (31.0-37.0) g/dL RDW 15.2 (11.5-15.5) % Plt Count 371 (150-450) k/uL Neutrophils % 85 % Lymphocytes % 11 % Monocytes % 2 % Eosinophils % 1 % Basophils % 0 % Neutrophils # 6.0 (1.3-7.7) k/uL Lymphocytes # 0.8 L (1.0-4.8) k/uL Monocytes # 0.2 (0-1.0) k/uL Eosinophils # 0.1 (0-0.7) k/uL Basophils # 0.0 (0-0.2) k/uL PT (9.0-12.0) sec INR (<1.2) APTT (22.0-30.0) sec Sodium 135 L (137-145) mmol/L Potassium 4.8 (3.5-5.1) mmol/L Chloride 100 (98-107) mmol/L Carbon Dioxide 24 (22-30) mmol/L Anion Gap 11 mmol/L BUN 18 H (7-17) mg/dL Creatinine 0.81 (0.52-1.04) mg/dL Est GFR (CKD-EPI)AfAm 79 (>60 ml/min/1.73 sqM) Est GFR (CKD-EPI)NonAf 69 (>60 ml/min/1.73 sqM) Glucose 138 H (74-99) mg/dL Calcium 10.7 H (8.4-10.2) mg/dL Magnesium 2.0 (1.6-2.3) mg/dL Total Bilirubin 0.6 (0.2-1.3) mg/dL AST 67 H (14-36) U/L ALT 79 H (9-52) U/L Alkaline Phosphatase 111 (38-126) U/L Troponin I (0.000-0.034) ng/mL NT-Pro-B Natriuret Pep 268 pg/mL Total Protein 7.0 (6.3-8.2) g/dL Albumin 4.5 (3.5-5.0) g/dL 12/26/18 12/26/18 Range/Units 12:11 12:11 WBC (3.8-10.6) k/uL RBC (3.80-5.40) m/uL Hgb (11.4-16.0) gm/dL Hct (34.0-46.0) % MCV (80.0-100.0) fL MCH (25.0-35.0) pg MCHC (31.0-37.0) g/dL RDW (11.5-15.5) % Plt Count (150-450) k/uL Neutrophils % % Lymphocytes % % Monocytes % % Eosinophils % % Basophils % % Neutrophils # (1.3-7.7) k/uL Lymphocytes # (1.0-4.8) k/uL Monocytes # (0-1.0) k/uL Eosinophils # (0-0.7) k/uL Basophils # (0-0.2) k/uL PT 10.2 (9.0-12.0) sec INR 0.9 (<1.2) APTT 23.5 (22.0-30.0) sec Sodium (137-145) mmol/L Potassium (3.5-5.1) mmol/L Chloride (98-107) mmol/L Carbon Dioxide (22-30) mmol/L Anion Gap mmol/L BUN (7-17) mg/dL Creatinine (0.52-1.04) mg/dL Est GFR (CKD-EPI)AfAm (>60 ml/min/1.73 sqM) Est GFR (CKD-EPI)NonAf (>60 ml/min/1.73 sqM) Glucose (74-99) mg/dL Calcium (8.4-10.2) mg/dL Magnesium (1.6-2.3) mg/dL Total Bilirubin (0.2-1.3) mg/dL AST (14-36) U/L ALT (9-52) U/L Alkaline Phosphatase (38-126) U/L Troponin I <0.012 (0.000-0.034) ng/mL NT-Pro-B Natriuret Pep pg/mL Total Protein (6.3-8.2) g/dL Albumin (3.5-5.0) g/dL Disposition Clinical Impression: Dyspnea Disposition: HOME SELF-CARE Condition: Good Instructions (If sedation given, give patient instructions): Dyspnea (ED) Additional Instructions: Afrin spray for nasal congestion Is patient prescribed a controlled substance at d/c from ED?: No Referrals: Nomi Saab DO [Primary Care Provider] - 1-2 days Elicia Andrews MD [STAFF PHYSICIAN] - 1-2 days Time of Disposition: 13:36
[2018-12-26 12:43] LABS: Basophils % (A) 0 %; Eosinophils # (A) 0.1 k/uL (0-0.7); Eosinophils % (A) 1 %; HCT 40.8 % (34.0-46.0); HGB 13.2 gm/dL (11.4-16.0); Lymphocytes # (A) 0.8 k/uL (1.0-4.8); Lymphocytes % (A) 11 %; MCH 28.5 pg (25.0-35.0); MCHC 32.4 g/dL (31.0-37.0); MCV 87.9 fL (80.0-100.0); Mean Platelet Volume 6.4; Monocytes # (A) 0.2 k/uL (0-1.0); Monocytes % (A) 2 %; Neutrophils % (A) 85 %; Platelet Count 371 k/uL (150-450); RBC 4.64 m/uL (3.80-5.40); RDW 15.2 % (11.5-15.5)
[2018-12-26 12:46] LABS: INR 0.9 (<1.2); Partial Thromboplastin Time 23.5 sec (22.0-30.0); Prothrombin Time 10.2 sec (9.0-12.0)
[2018-12-26 12:50] LABS: Albumin 4.5 g/dL (3.5-5.0); Calcium 10.7 mg/dL (8.4-10.2); Potassium 4.8 mmol/L (3.5-5.1); Total Bilirubin 0.6 mg/dL (0.2-1.3)
--- NOTE | 2018-12-26 13:01 | XR ---
EXAMINATION TYPE: XR chest 1V portable DATE OF EXAM: 12/26/2018 COMPARISON: Prior chest x-ray 09/15/2018 and 11/19/2017 HISTORY: Chest pain TECHNIQUE: Single frontal view of the chest is obtained. FINDINGS: There are cardiac leads present. The aorta is dense. Prominent lung volumes suggest underly ing COPD. There are strand-like densities within the lungs compatible with scarring as on prior. The re is no focal air space opacity, pleural effusion, or pneumothorax seen. The cardiac silhouette siz e is stable. The osseous structures are intact. IMPRESSION: No acute process.
[2018-12-26] MEDS ORDERED: LIDOCAINE 5% PATCH TOPICAL STA (13:34)
[2018-12-26 13:43] VITALS: BP 124/71; PULSE 100
== END 2018-12-26 13:48 | disposition home or self-care (01) ==
LOC: EC 11:29
DX: R06.00 Dyspnea, unspecified (principal); R00.0 Tachycardia, unspecified; R22.32 Localized swelling, mass and lump, left upper limb; J44.9 Chronic obstructive pulmonary disease, unspecified; E78.5 Hyperlipidemia, unspecified; I11.0 Hypertensive heart disease with heart failure; I50.9 Heart failure, unspecified; Z79.51 Long term (current) use of inhaled steroids; Z79.52 Long term (current) use of systemic steroids; Z79.82 Long term (current) use of aspirin; Z79.899 Other long term (current) drug therapy; Z86.19 Personal history of other infectious and parasitic diseases; Z82.49 Family history of ischemic heart disease and other diseases of the circulatory system
CPT/HCPCS: 36415; 71045; 80053; 83735; 83880; 84484; 85025; 85610; 85730; 93005; 99285

== ENCOUNTER 2019-01-23 09:31 | Emergency (ER) | payer MEDICARE ==
[2019-01-23 09:39] VITALS: RESP 20
[2019-01-23] MEDS ORDERED: HYDROcodone/APAP 5-325MG 1 EACH TAB PO STA (10:07)
[2019-01-23] MEDS ORDERED: CYCLOBENZAPRINE 10MG STARTER 3 TAB BTL PO STA (10:07)
[2019-01-23] MEDS ORDERED: KETOROLAC 30 MG/ML 1 ML VIAL IM STA (10:07)
--- NOTE | 2019-01-23 10:10 | ED ---
Extremity Problem HPI - General Chief complaint: Extremity Problem,Nontraumatic Stated complaint: lt hip pain Time Seen by Provider: 01/23/19 09:42 Source: patient, RN notes reviewed, old records reviewed Mode of arrival: ambulatory Limitations: no limitations - History of Present Illness Initial comments: Patient is a pleasant 83-year-old female presents emergency department today with neighbor with complaints of left buttocks pain and pain shooting down the left leg. She's been having symptoms for the past 3 weeks. She saw her PCP was prescribed Tylenol with codeine. She states it has not helped with her pain. She reports it's difficult for her to lift her leg to get into the shower. Patient denies any other symptoms at this time including saddle anesthesias fevers or chills. She reports the pain is mainly in her back minimal back pain. Patient states that she's had no chest pain or shortness breath, nausea or vomiting. Patient states that she does have a history of COPD and is on chronic oral steroids. - Related Data Home Medications Medication Instructions Recorded Confirmed Albuterol Inhaler [Ventolin Hfa 2 puff INHALATION RT-QID PRN 05/17/17 01/23/19 Inhaler] Fluticasone Nasal [place] [Flonase 2 sprays EA NOSTRIL DAILY 05/17/17 01/23/19 Nasal [place]] Furosemide [Lasix] 40 mg PO DAILY 05/17/17 01/23/19 Lisinopril 40 mg PO DAILY 05/17/17 01/23/19 Simvastatin 40 mg PO DAILY 05/17/17 01/23/19 amLODIPine [Norvasc] 10 mg PO DAILY 05/17/17 01/23/19 Aspirin [Children's Aspirin] 81 mg PO DAILY 08/02/17 01/23/19 Cholecalciferol [Vitamin D3] 2,000 unit PO DAILY 08/02/17 01/23/19 Vit C/E/Zn/Coppr/Lutein/Zeaxan 1 cap PO DAILY 08/02/17 01/23/19 [Preservision Areds 2 Softgel] Budesonide [Pulmicort] 0.5 mg INHALATION RT-BID 09/15/18 01/23/19 Ipratropium-Albuterol Nebulize 3 ml INHALATION RT-QID PRN 09/15/18 01/23/19 [Duoneb 0.5 mg-3 mg/3 ml Soln] Calcium Carbonate 500 mg PO DAILY 12/26/18 01/23/19 Formoterol Fumarate [Perforomist] 20 mcg INHALATION RT-BID 12/26/18 01/23/19 Loratadine [Claritin] 10 mg PO DAILY 12/26/18 01/23/19 Montelukast [Singulair] 10 mg PO DAILY 12/26/18 01/23/19 Ranitidine HCl [Zantac] 150 mg PO BID 12/26/18 01/23/19 Zinc 50 mg PO DAILY 12/26/18 01/23/19 Previous Rx's Medication Instructions Recorded Cyclobenzaprine [Flexeril] 10 mg PO TID #15 tab 01/23/19 HYDROcodone/APAP 5-325MG [[place] 1 tab PO Q6HR PRN 3 Days #12 tab 01/23/19 5-325] Ibuprofen [Motrin] 600 mg PO Q6HR PRN #20 tab 01/23/19 Allergies Allergy/AdvReac Type Severity Reaction Status Date / Time No Known Allergies Allergy Verified 01/23/19 09:51 Review of Systems ROS Statement: Those systems with pertinent positive or pertinent negative responses have been documented in the HPI. ROS Other: All systems not noted in ROS Statement are negative. Past Medical History Past Medical History: Heart Failure, COPD, Hyperlipidemia, Hypertension Additional Past Medical History / Comment(s): Recent sinus infection, PMH indicates CHF but pt does not recall this. History of Any Multi-Drug Resistant Organisms: None Reported Past Surgical History: Tubal Ligation Additional Past Surgical History / Comment(s): Bilateral cataract removals with lens. Past Anesthesia/Blood Transfusion Reactions: No Reported Reaction Past Psychological History: No Psychological Hx Reported Smoking Status: Former smoker Past Alcohol Use History: Rare Past Drug Use History: None Reported - Past Family History Father Family Medical History: Congestive Heart Failure (CHF) Additional Family Medical History / Comment(s): Father of CHF at the age of 70yrs. Mother Family Medical History: Cancer Additional Family Medical History / Comment(s): Mother had breast cancer and gastric ulcers. General Exam - General Exam Comments Initial Comments: Pleasant 83-year-old female. Alert and oriented. Patient appears in no significant distress. Limitations: no limitations General appearance: alert, in no apparent distress Head exam: Present: atraumatic, normocephalic, normal inspection Eye exam: Present: normal appearance, PERRL, EOMI. Absent: scleral icterus, conjunctival injection, periorbital swelling ENT exam: Present: normal exam, mucous membranes moist Neck exam: Present: normal inspection. Absent: tenderness, meningismus, lymphadenopathy Respiratory exam: Present: normal lung sounds bilaterally. Absent: respiratory distress, wheezes, rales, rhonchi, stridor Cardiovascular Exam: Present: regular rate, normal rhythm, normal heart sounds. Absent: systolic murmur, diastolic murmur, rubs, gallop, clicks GI/Abdominal exam: Present: soft, normal bowel sounds. Absent: distended, tenderness, guarding, rebound, rigid Extremities exam: Present: normal inspection, full ROM, normal capillary refill. Absent: tenderness, pedal edema, joint swelling, calf tenderness Back exam: Present: normal inspection, tenderness (Minimal lumbar spinal tenderness.), other (Patient has tenderness over the low left buttock. Patient's pain is related near piriformis muscle. Normal pulses distally.) Neurological exam: Present: alert, oriented X3, CN II-XII intact Psychiatric exam: Present: normal affect, normal mood Skin exam: Present: warm, dry, intact, normal color. Absent: rash Course Vital Signs 01/23/19 09:36 Temperature 97.6 F Pulse Rate 100 Respiratory 20 Rate Blood Pressure 126/66 O2 Sat by Pulse 99 Oximetry Medical Decision Making - Medical Decision Making 23-year-old female presents for his room today with 3 weeks of progressive left hip pain. Patient reports that the pain will radiate from her buttocks to the back of her thigh. Patient has no saddle anesthesias. She denies any recent fall or trauma. X-ray lumbar spine shows evidence of degenerative disease multilevel facet arthropathy noted. Specifically worse L4-L5. Patient is given IM Toradol, Flexeril and [place]. I believe patient's pain is more consistent. Form syndrome is mainly in the buttocks. She denies some minor lumbar tenderness. I discussed Patient is follow-up with Dr. Rojo referral for physical therapy. She is ambulating without significant difficulty. We'll discharge the Patient a short course of muscle relaxers and temperature medicine and pain medicine. Discussed return parameters. - Radiology Data Radiology results: report reviewed Acute fracture dislocation and pelvis. Moderate bilateral femoral acetabular after appendectomy. No acute fracture lower spine. Little scoliosis. Grade 1 anterolisthesis L4-L5 should be to facet arthropathy seen on prior on 1117. Multiple facet arthropathy and degenerative disc disease at L4-L5 on prior CT. MRI could assess for nerve root impingement. Disposition Clinical Impression: Sciatica of left side, Piriformis syndrome Disposition: HOME SELF-CARE Condition: Good Instructions (If sedation given, give patient instructions): Piriformis Syndrome (ED), Sciatica (ED) Additional Instructions: Patient advised to follow-up with primary care doctor. Return to emergency department if any alarming signs or symptoms occur. Take medications as prescribed. Recommend follow-up with chronic specialist and possibly may need physical therapy treatment and deep tissue massage to help with symptoms. Prescriptions: Cyclobenzaprine [Flexeril] 10 mg PO TID #15 tab Ibuprofen [Motrin] 600 mg PO Q6HR PRN #20 tab PRN Reason: Pain HYDROcodone/APAP 5-325MG [[place] 5-325] 1 tab PO Q6HR PRN 3 Days #12 tab PRN Reason: Pain Is patient prescribed a controlled substance at d/c from ED?: Yes When asked, does pt state using other controlled substances?: No If prescribed controlled substance>3 days was MAPS reviewed?: Prescribed <3 Days If opioid is for acute pain is fill amount 7 days or less?: Yes If Rx opioid, was Start Talking consent form obtained?: Yes Referrals: Nomi Saab DO [Primary Care Provider] - 1-2 days Declan Lozano PAC [PHYSICIAN TRAVEL MED SURG RN] - 1-2 days Time of Disposition: 11:39
--- NOTE | 2019-01-23 10:55 | XR ---
EXAMINATION TYPE: XR lumbar spine 2 or 3V DATE OF EXAM: 01/23/2019 CLINICAL HISTORY: Low back pain for 2 weeks with no known injury. Left-sided radiculopathy. TECHNIQUE: Frontal and lateral images of the lumbar spine are obtained. COMPARISON: CT abdomen pelvis dated 05/17/2017 FINDINGS: There are 5 lumbar type vertebral bodies identified. There is minimal levoscoliosis of the lumbar spine. There is stable grade 1 anterolisthesis of L4 on L5 with facet arthropathy of the lowe r lumbar spine. Vertebral body heights and disk space heights are within normal limits as the vertebr al body height of L5 is similar to the prior 2017. Extensive atherosclerosis is seen of the abdominal aorta and its branches. The overlying soft tissue appears unremarkable. IMPRESSION: 1. No acute fracture is seen in the lumbar spine. 2. Mild levoscoliosis of the lumbar spine. 3. Persistent grade 1 anterolisthesis of L4 on L5 likely attributable to facet arthropathy as seen on the prior of 1117. 4. Multilevel facet arthropathy and degenerative disc disease at L4-L5 appreciated on the prior CT. M RI could assess for nerve root impingement and further assess degenerative disc disease.
--- NOTE | 2019-01-23 11:01 | XR ---
EXAMINATION TYPE: XR pelvis AP view DATE OF EXAM: 01/23/2019 CLINICAL HISTORY: Left hip pain and radiculopathy for 2 weeks with no known injury TECHNIQUE: A single AP view of the pelvis is obtained. COMPARISON: None. FINDINGS: There is no acute fracture/dislocation evident in the pelvis. The hip and sacroiliac join ts display degenerative change. Moderate bilateral femoral acetabular arthropathy is seen as very sm all subchondral cysts are seen within the acetabular sourcil, there is cephalad joint space narrowing and acetabular sclerosis. Moderate atherosclerosis of the branches of the abdominal aorta are seen. The overlying soft tissue appears unremarkable. IMPRESSION: There is no acute fracture or dislocation in the pelvis. Moderate bilateral femoral acet abular arthropathy.
[2019-01-23 11:53] VITALS: BP 128/69; PULSE 73; TEMP 98.1
== END 2019-01-23 11:53 | disposition home or self-care (01) ==
LOC: EC 09:31
DX: M54.32 Sciatica, left side (principal); M51.36 Other intervertebral disc degeneration, lumbar region; M46.86 Other specified inflammatory spondylopathies, lumbar region; J44.9 Chronic obstructive pulmonary disease, unspecified; I11.0 Hypertensive heart disease with heart failure; I50.9 Heart failure, unspecified; E78.5 Hyperlipidemia, unspecified; Z87.891 Personal history of nicotine dependence; Z79.82 Long term (current) use of aspirin; Z79.899 Other long term (current) drug therapy; Z79.51 Long term (current) use of inhaled steroids; Z98.51 Tubal ligation status
CPT/HCPCS: 72100; 72170; 99284; 96372; J1885

== ENCOUNTER 2019-01-30 15:45 | Inpatient (IN) | payer MEDICARE ==
--- NOTE | 2019-01-30 16:11 | ED ---
General Adult HPI - General Chief complaint: Shortness of Breath Stated complaint: Diff Breathing Time Seen by Provider: 01/30/19 15:47 Source: patient Mode of arrival: EMS Limitations: no limitations - History of Present Illness Initial comments: Dictation was produced using [employer] dictation software. please excuse any grammatical, word or spelling errors. Chief Complaint: 83-year-old female past medical history of [place], COPD, dyslipidemia and hypertension presents with fever and shortness of breath. History of Present Illness: She is 83-year-old female she has history of CHF and COPD. She presents today with 2-3 days of shortness of breath. She didn't call her PCP today however did not get an answer. Patient arrives today via EMS. She states she was unable to drive herself here because she is so short of breath. Denies any history of blood clots. She has no chest pain. No leg pains. Patient complains of shortness of breath without any cough. Denies any nausea, vomiting or diarrhea. No abdominal pain. No burning on urination no flank pain. No neck pain no headache. Patient was 2 L of oxygen at home her core baker is Dr. Randle. The ROS documented in this emergency department record has been reviewed and confirmed by me. Those systems with pertinent positive or negative responses have been documented in the HPI. All other systems are other negative and/or noncontributory. PHYSICAL EXAM: General Impression: Alert and oriented x3, not in acute distress HEENT: Normocephalic atraumatic, extra-ocular movements intact, pupils equal and reactive to light bilaterally, mucous membranes moist. Cardiovascular: Heart regular rate and rhythm, S1&S2 audible, no murmurs, rubs or gallops Chest: Mild rhonchi to the left lung field Abdomen: Bowel sounds present, abdomen soft, non-tender, non-distended, no organomegaly Musculoskeletal: Pulses present and equal in all extremities, no peripheral edema Motor: no focal deficits noted Neurological: CN II-XII grossly intact, no focal motor or sensory deficits noted Skin: Intact with no visualized rashes Psych: Normal affect and mood ED course: 83-year-old female presents with chief complaint of shortness of breath. Signs upon arrival shows temperature 102.8, heart rate of 117, oxygen saturations 90 and 2 L nasal cannula. Laboratory evaluation obtained. Leukocytosis 14.4. Coag panel unremarkable. Metabolic panel shows lactic acidosis 2.7. Rest of labs are unremarkable. Chest x-ray shows right middle lobe pneumonia. Clinical presentation consistent with pneumonia sepsis. At this point no signs of septic shock however patient does have signs of end organ dysfunction given hypoxia and respiratory distress. She given intravenous fluids. Patient is not hypotensive. She will be admitted to telemetry for further intervention. She is given Tylenol, morphine for pain and community acquired pneumonia antibiotics. The cultures and urine cultures. - Related Data Home Medications Medication Instructions Recorded Confirmed Albuterol Inhaler [Ventolin Hfa 2 puff INHALATION RT-QID PRN 05/17/17 01/30/19 Inhaler] Fluticasone Nasal [place] [Flonase 2 sprays EA NOSTRIL DAILY 05/17/17 01/30/19 Nasal [place]] Furosemide [Lasix] 40 mg PO DAILY 05/17/17 01/30/19 Lisinopril 40 mg PO DAILY 05/17/17 01/30/19 Simvastatin 40 mg PO DAILY 05/17/17 01/30/19 amLODIPine [Norvasc] 10 mg PO DAILY 05/17/17 01/30/19 Aspirin [Children's Aspirin] 81 mg PO DAILY 08/02/17 01/30/19 Cholecalciferol [Vitamin D3] 2,000 unit PO DAILY 08/02/17 01/30/19 Vit C/E/Zn/Coppr/Lutein/Zeaxan 1 cap PO DAILY 08/02/17 01/30/19 [Preservision Areds 2 Softgel] Budesonide [Pulmicort] 0.5 mg INHALATION RT-BID 09/15/18 01/30/19 Ipratropium-Albuterol Nebulize 3 ml INHALATION RT-QID PRN 09/15/18 01/30/19 [Duoneb 0.5 mg-3 mg/3 ml Soln] Calcium Carbonate 500 mg PO DAILY 12/26/18 01/30/19 Formoterol Fumarate [Perforomist] 20 mcg INHALATION RT-BID 12/26/18 01/30/19 Zinc 50 mg PO DAILY 12/26/18 01/30/19 Ascorbic Acid [Vitamin C] 500 mg PO DAILY 01/30/19 01/30/19 Cyclobenzaprine [Flexeril] 10 mg PO QAM 01/30/19 01/30/19 Vitamin E 100 unit PO DAILY 01/30/19 01/30/19 Previous Rx's Medication Instructions Recorded HYDROcodone/APAP 5-325MG [[place] 1 tab PO Q6HR PRN 3 Days #12 tab 01/23/19 5-325] Ibuprofen [Motrin] 600 mg PO Q6HR PRN #20 tab 01/23/19 Allergies Allergy/AdvReac Type Severity Reaction Status Date / Time No Known Allergies Allergy Verified 01/30/19 16:56 Review of Systems ROS Statement: Those systems with pertinent positive or pertinent negative responses have been documented in the HPI. ROS Other: All systems not noted in ROS Statement are negative. Past Medical History Past Medical History: Heart Failure, COPD, Hyperlipidemia, Hypertension Additional Past Medical History / Comment(s): Recent sinus infection, PMH indic ates CHF but pt does not recall this. History of Any Multi-Drug Resistant Organisms: None Reported Past Surgical History: Tubal Ligation Additional Past Surgical History / Comment(s): Bilateral cataract removals with lens. Past Anesthesia/Blood Transfusion Reactions: No Reported Reaction Past Psychological History: No Psychological Hx Reported Smoking Status: Former smoker Past Alcohol Use History: Rare Past Drug Use History: None Reported - Past Family History Father Family Medical History: Congestive Heart Failure (CHF) Additional Family Medical History / Comment(s): Father of CHF at the age of 70yrs. Mother Family Medical History: Cancer Additional Family Medical History / Comment(s): Mother had breast cancer and gastric ulcers. General Exam Limitations: no limitations Course Vital Signs 01/30/19 01/30/19 15:47 17:09 Temperature 102.8 F H 103.3 F H Pulse Rate 117 H Respiratory 24 Rate Blood Pressure 130/60 O2 Sat by Pulse 90 L Oximetry Medical Decision Making - Lab Data Result diagrams: 01/30/19 16:35 01/30/19 16:35 Lab Results 01/30/19 01/30/19 01/30/19 Range/Units 16:35 16:35 16:35 WBC 14.4 H (3.8-10.6) k/uL RBC 3.75 L (3.80-5.40) m/uL Hgb 10.8 L (11.4-16.0) gm/dL Hct 33.1 L (34.0-46.0) % MCV 88.2 (80.0-100.0) fL MCH 28.9 (25.0-35.0) pg MCHC 32.8 (31.0-37.0) g/dL RDW 14.1 (11.5-15.5) % Plt Count 381 (150-450) k/uL Neutrophils % 91 % Lymphocytes % 5 % Monocytes % 3 % Eosinophils % 0 % Basophils % 0 % Neutrophils # 13.1 H (1.3-7.7) k/uL Lymphocytes # 0.7 L (1.0-4.8) k/uL Monocytes # 0.4 (0-1.0) k/uL Eosinophils # 0.0 (0-0.7) k/uL Basophils # 0.0 (0-0.2) k/uL PT (9.0-12.0) sec INR (<1.2) APTT (22.0-30.0) sec Sodium 137 (137-145) mmol/L Potassium 4.1 (3.5-5.1) mmol/L Chloride 100 (98-107) mmol/L Carbon Dioxide 25 (22-30) mmol/L Anion Gap 12 mmol/L BUN 20 H (7-17) mg/dL Creatinine 0.88 (0.52-1.04) mg/dL Est GFR (CKD-EPI)AfAm 72 (>60 ml/min/1.73 sqM) Est GFR (CKD-EPI)NonAf 62 (>60 ml/min/1.73 sqM) Glucose 127 H (74-99) mg/dL Plasma Lactic Acid [place] 2.7 H* (0.7-2.0) mmol/L Calcium 9.5 (8.4-10.2) mg/dL Total Bilirubin 0.5 (0.2-1.3) mg/dL AST 30 (14-36) U/L ALT 33 (9-52) U/L Alkaline Phosphatase 105 (38-126) U/L Creatine Kinase 134 (30-135) U/L Troponin I (0.000-0.034) ng/mL NT-Pro-B Natriuret Pep pg/mL Total Protein 6.7 (6.3-8.2) g/dL Albumin 4.3 (3.5-5.0) g/dL 01/30/19 01/30/19 01/30/19 Range/Units 16:35 16:35 16:35 WBC (3.8-10.6) k/uL RBC (3.80-5.40) m/uL Hgb (11.4-16.0) gm/dL Hct (34.0-46.0) % MCV (80.0-100.0) fL MCH (25.0-35.0) pg MCHC (31.0-37.0) g/dL RDW (11.5-15.5) % Plt Count (150-450) k/uL Neutrophils % % Lymphocytes % % Monocytes % % Eosinophils % % Basophils % % Neutrophils # (1.3-7.7) k/uL Lymphocytes # (1.0-4.8) k/uL Monocytes # (0-1.0) k/uL Eosinophils # (0-0.7) k/uL Basophils # (0-0.2) k/uL PT 10.4 (9.0-12.0) sec INR 1.0 (<1.2) APTT 25.4 (22.0-30.0) sec Sodium (137-145) mmol/L Potassium (3.5-5.1) mmol/L Chloride (98-107) mmol/L Carbon Dioxide (22-30) mmol/L Anion Gap mmol/L BUN (7-17) mg/dL Creatinine (0.52-1.04) mg/dL Est GFR (CKD-EPI)AfAm (>60 ml/min/1.73 sqM) Est GFR (CKD-EPI)NonAf (>60 ml/min/1.73 sqM) Glucose (74-99) mg/dL Plasma Lactic Acid [place] (0.7-2.0) mmol/L Calcium (8.4-10.2) mg/dL Total Bilirubin (0.2-1.3) mg/dL AST (14-36) U/L ALT (9-52) U/L Alkaline Phosphatase (38-126) U/L Creatine Kinase (30-135) U/L Troponin I <0.012 (0.000-0.034) ng/mL NT-Pro-B Natriuret Pep 316 pg/mL Total Protein (6.3-8.2) g/dL Albumin (3.5-5.0) g/dL Disposition Clinical Impression: Sepsis, Pneumonia, Respiratory failure Disposition: ADMITTED IP TO THIS HOSP Condition: Fair Referrals: Nomi Saab DO [Primary Care Provider] - 1-2 days Decision Time: 17:35
[2019-01-30] MEDS ORDERED: MORPHINE SULFATE 4 MG/ML SYRINGE IVP STA (16:51)
[2019-01-30 16:58] LABS: Basophils % (A) 0 %; Eosinophils % (A) 0 %; HCT 33.1 % (34.0-46.0); HGB 10.8 gm/dL (11.4-16.0); Lymphocytes # (A) 0.7 k/uL (1.0-4.8); Lymphocytes % (A) 5 %; MCH 28.9 pg (25.0-35.0); MCHC 32.8 g/dL (31.0-37.0); MCV 88.2 fL (80.0-100.0); Mean Platelet Volume 6.8; Monocytes # (A) 0.4 k/uL (0-1.0); Monocytes % (A) 3 %; Neutrophils # (A) 13.1 k/uL (1.3-7.7); Neutrophils % (A) 91 %; Platelet Count 381 k/uL (150-450); RBC 3.75 m/uL (3.80-5.40); RDW 14.1 % (11.5-15.5); WBC 14.4 k/uL (3.8-10.6)
[2019-01-30] MEDS: SODIUM CHLORIDE 0.9% 500 ML 500 ML IV SCH ×2 (16:58→18:45)
[2019-01-30] MEDS ORDERED: AZITHROMYCIN 500 MG in SODIUM CHLORIDE 0.9% 250 ML IVPB STA (17:00)
[2019-01-30] MEDS ORDERED: ACETAMINOPHEN TAB 500 MG TAB PO STA (17:00)
[2019-01-30 17:04] LABS: Albumin 4.3 g/dL (3.5-5.0); Calcium 9.5 mg/dL (8.4-10.2); Partial Thromboplastin Time 25.4 sec (22.0-30.0); Potassium 4.1 mmol/L (3.5-5.1); Prothrombin Time 10.4 sec (9.0-12.0); Total Bilirubin 0.5 mg/dL (0.2-1.3); Total Protein 6.7 g/dL (6.3-8.2)
--- NOTE | 2019-01-30 17:15 | XR ---
EXAMINATION TYPE: XR chest 2V DATE OF EXAM: 01/30/2019 COMPARISON: 12/26/2018 HISTORY: Fever TECHNIQUE: Frontal and lateral views of the chest are obtained. FINDINGS: There is no heart failure. Costophrenic angles are clear. There are chest leads. There is osteopenia. There is coarse density in the right middle lobe. IMPRESSION: There is some right middle lobe pneumonia and atelectasis that is new compared to last e xam. No heart failure.
[2019-01-30] MEDS ORDERED: ONDANSETRON 4 MG/2 ML VIAL IVP PRN (17:35)
[2019-01-30] MEDS ORDERED: oxyCODONE-APAP 5-325MG 1 EACH TAB PO PRN (17:35)
[2019-01-30] MEDS ORDERED: NALOXONE 0.4 MG/ML 1 ML VIAL IV PRN (17:35)
[2019-01-30] MEDS ORDERED: ACETAMINOPHEN TAB 325 MG TAB PO PRN (17:35)
[2019-01-30] MEDS ORDERED: IBUPROFEN 600 MG TAB PO PRN (20:26)
[2019-01-30] MEDS ORDERED: BUDESONIDE 0.5 MG/2 ML NEBU INHALATION SCH (20:26)
[2019-01-30] MEDS: IPRATROPIUM-ALBUTEROL 3 ML NEB INHALATION SCH (21:08)
[2019-01-30] MEDS: FORMOTEROL FUMARATE 20 MCG/2 ML NEBU INHALATION SCH (21:08)
[2019-01-30] MEDS: SODIUM CHLORIDE 0.9% 1,000 ML IV SCH (21:26)
[2019-01-30] MEDS: ENOXAPARIN 40 MG/0.4 ML SYRINGE SQ SCH (21:59)
[2019-01-30] MEDS: guaiFENesin 600 MG TABLET.ER PO SCH (21:59)
--- NOTE | 2019-01-30 22:10 | HP ---
HISTORY AND PHYSICAL DATE OF ADMISSION: 01/30/2019 DATE OF SERVICE: 01/30/2019 PRESENTING COMPLAINT: Cough, shortness of breath. HISTORY OF PRESENTING COMPLAINT: This is an 83-year-old patient of Dr. Saab who also follows with personal lines sales executive Dr. Lewis. Chronic stable medical conditions include osteoarthritis, sciatica, hyperlipidemia, hypertension. Patient has been progressively getting short of breath for over a week, increasing wheezing, cough, yellow sputum, had some fever and chills, weak, tired, rundown, poor appetite. She is being admitted for the same. Started on bronchodilators, antibiotics. REVIEW OF SYSTEMS: CONSTITUTIONAL: Weak, tired. Fever. HEENT: Nasal stuffiness. RESPIRATORY: As above. CARDIOVASCULAR: None. GASTROINTESTINAL: None. GENITOURINARY: None. MUSCULOSKELETAL: Arthritic pain in many joints. DERMATOLOGICAL: None. HEMATOLOGICAL: None. LYMPHATICS: None. PSYCHIATRY: A bit anxious. NEUROLOGICAL: None. PAST MEDICAL HISTORY: 1. COPD. 2. Hyperlipidemia. 3. Hypertension. PAST SURGICAL HISTORY: 1. Bilateral cataracts. 2. Tubal ligation. SOCIAL HISTORY: Patient smoked for close to 64 years; stopped a short time ago. No alcohol. 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 . FAMILY HISTORY: CHF. HOME MEDICATIONS: 1. Norvasc 10 mg a day. 2. Zinc 50 mg p.o. daily. 3. PreserVision Areds2 soft gel 1 capsule p.o. daily. 4. Simvastatin 40 mg p.o. daily. 5. Lisinopril 40 mg p.o. daily. 6. DuoNeb q.i.d. p.r.n. 7. Motrin 600 mg q.6 p.r.n. 8. [place] 5 one tablet q.6 p.r.n. 9. Lasix 40 mg p.o. daily. 10.Perforomist 20 mcg b.i.d. 11.Flonase 2 sprays each nostril daily. 12.Flexeril 10 mg p.o. daily. 13.Vitamin D3 2000 units p.o. daily. 14.Calcium carbonate 500 mg p.o. daily. 15.Pulmicort 0.5 mg nebulizer b.i.d. 16.Aspirin 81 mg a day. 17.Vitamin C 500 mg a day. 18.Ventolin HFA 2 puffs q.i.d. p.r.n. ALLERGIES: NONE. PHYSICAL EXAMINATION: VITAL SIGNS ON PRESENTATION: Temperature 103.3, pulse 118, respiration 28, blood pressure 116/61, pulse ox 90% on 2 L. GENERAL APPEARANCE: Average build. Lying in bed, very tired-appearing. EYES: Pupils equal. Conjunctivae normal. HEENT: External appearance of nose and ears normal. Oral cavity normal. NECK: JVD not raised. Mass not palpable. RESPIRATORY: Effort increased. LUNGS: Poor air entry. Some right-sided crackles. CARDIOVASCULAR: First and second sounds normal. No edema. ABDOMEN: Soft, non-tender. Liver and spleen not palpable. LYMPHATIC: No lymph node palpable in neck or axillae. PSYCHIATRY: Alert and oriented x3. Mood and affect normal. NEUROLOGICAL: Pupils equal. Cranial nerves grossly intact. Power and sensation grossly intact. INVESTIGATIONS: White count 14.4, hemoglobin 10.8, platelets normal. Potassium 4.1, BUN 20, creatinine 0.88. Troponin less than 0.012. ProBNP 316. Chest x-ray film, personally reviewed by me, shows right-sided infiltrate. EKG tracing, personally reviewed by me, shows normal sinus rhythm. ASSESSMENT: 1. Right lower lobe and middle lobe pneumonia; suspect gram-negative organism causing sepsis, POA. 2. Acute hypoxic respiratory failure from above. 3. Acute chronic obstructive pulmonary disease exacerbation in an ex-smoker, severe type. 4. Primary osteoarthritis. 5. Hyperlipidemia. 6. Essential hypertension. Currently blood pressure is running on the lower side. PLAN: Patient will be started on nebulized bronchodilators, inhaled and IV steroids, Mucinex. Will send off sputum for Gram stain and culture. Also antibiotics that were started in the ER to continue. Hold off patient's antihypertensive. Put the patient on IV fluids. Pulmonary will be consulted. Care was discussed with the patient and her son at the bedside. Questions were answered. MMODL / IJN: [id number] /
[2019-01-31] MEDS: IPRATROPIUM-ALBUTEROL 3 ML NEB INHALATION SCH ×7 (00:02→23:09)
[2019-01-31 03:09] LABS: Appearance,Urine Clear (Clear); Bilirubin,Urine Negative (Negative); Blood,Urine Trace (Negative); Color,Urine Yellow; Glucose,Urine (UA) Negative (Negative); Ketones,Urine 2+ (Negative); Leukocyte Esterase,Urine Negative (Negative); Mucus,Urine Rare /hpf; Nitrite,Urine Negative (Negative); PH, Urine 5.5 (5.0-8.0); Protein,Urine 1+ (Negative); RBC,Urine 11 /hpf (0-5); Specific Gravity,Urine 1.019 (1.001-1.035); Squamous Epithelial Cell,Urine <1 /hpf (0-4); Urobilinogen,Urine <2.0 mg/dL (<2.0); WBC,Urine 4 /hpf (0-5)
[2019-01-31] MEDS: PANTOPRAZOLE 40 MG TABLET PO SCH (06:43)
[2019-01-31] MEDS: BUDESONIDE 1 MG/2 ML NEBU INHALATION SCH ×2 (07:51→19:39)
[2019-01-31] MEDS: FORMOTEROL FUMARATE 20 MCG/2 ML NEBU INHALATION SCH ×2 (07:51→19:39)
[2019-01-31] MEDS: ZINC SULFATE 220 MG CAP PO SCH (08:04)
[2019-01-31] MEDS: ATORVASTATIN 20 MG TAB PO SCH (08:04)
[2019-01-31] MEDS: guaiFENesin 600 MG TABLET.ER PO SCH ×2 (08:04→20:21)
[2019-01-31] MEDS: VITAMIN E (DL,TOCOPHERYL ACET) 400 UNIT CAP PO SCH (08:04)
[2019-01-31] MEDS: ASCORBIC ACID 500 MG TAB PO SCH (08:04)
[2019-01-31] MEDS: VIT A,C & E-LUTEIN-MINERALS 1 EACH TAB PO SCH (08:04)
[2019-01-31] MEDS: ASPIRIN 81 MG PO SCH (08:04)
[2019-01-31] MEDS: CYCLOBENZAPRINE 10 MG TAB PO SCH (08:04)
[2019-01-31] MEDS: SODIUM CHLORIDE 0.9% 1,000 ML IV SCH ×2 (08:07→12:58)
[2019-01-31] MEDS: methylPREDNISolone SOD SUCCI 125 MG/2 ML VIAL IV SCH ×3 (12:55→23:28)
--- NOTE | 2019-01-31 13:07 | CONS ---
CONSULTATION PULMONARY/CRITICAL CARE CONSULTATION: DATE OF SERVICE: 01/31/2019 This is an 83-year-old female that we were asked to see for shortness of breath. This is an 83-year-old female who presents to the emergency department with complaints of shortness of breath. This has been going on for some time. In addition, she complains of cough and fever. Not producing much phlegm. Her primary care physician is Dr. Saab and she sees primarily Dr. Lewis in my office for her COPD. She states that she has about 50% lung function remaining. Prior to admission, she had increasing shortness of breath for about 2 or 3 days prior to admission. She apparently tried to call her primary care physician, but was not able to get an answer. In addition, she admits to chest congestion, coughing, wheezing, tightness and occasional phlegm production. No nausea, vomiting or diarrhea. No chest pain or chest discomfort. No urinary complaints. She does typically use oxygen at home at 2 L/minute /7. Today, she is sitting in bed. She feels like she is a bit better, not a lot. She is with family members. She is sitting upright. She does have some evidence of conversational dyspnea and mild use of accessory muscles. HOME MEDICATIONS: Include amlodipine, zinc, vitamin E, eye vitamins, simvastatin, lisinopril, DuoNeb, ibuprofen, [place], Lasix, Perforomist, Flonase nasal spray, Flexeril, vitamin D3, calcium carbonate, Pulmicort, aspirin, ascorbic acid, and albuterol inhaler. ALLERGIES: Denied. MEDICAL HISTORY: Positive for CHF, COPD, hyperlipidemia, hypertension, sinus infection. SURGICAL HISTORY: Includes tubal ligation, bilateral cataract surgery. SOCIAL HISTORY: Positive for previous tobacco use. Does not smoke currently. Uses alcohol rarely. No illicit drug use. FAMILY HISTORY: Positive for CHF and breast cancer. REVIEW OF SYSTEMS: CONSTITUTIONAL: Weakness. NEUROLOGIC: Negative. HEENT: Negative. CARDIOVASCULAR: Negative. PULMONARY: Shortness of breath, chest tightness, wheezing, cough, chest congestion, minimal phlegm production. GI: Negative. : Negative. RHEUMATOLOGIC: Negative. IMMUNOLOGIC: Negative. ENDOCRINOLOGIC: Negative. DERMATOLOGIC: Negative. Current vital signs are reviewed. Temperature is 98.1, heart rate 84, respiratory rate 20, blood pressure 105/56 mean 72, 4 L saturation 95%. Appears in no acute distress. HEENT: Examination is grossly unremarkable. Mucous membranes are moist. No oral lesions. NECK: Supple. Full range of motion. No adenopathy or thyromegaly. Neck veins are flat. CARDIOVASCULAR: Examination reveals regular rhythm and rate. Heart rate in the mid 80s. S1, S2 normal. LUNGS: Reveal diffuse inspiratory and expiratory wheezes and rhonchi. Breath sounds are diminished. There is prolongation. ABDOMEN: Soft. Bowel sounds are heard. EXTREMITIES: Intact. No cyanosis, clubbing, or edema. SKIN: Without rash. NEUROLOGIC: Examination is brief but nonfocal. LAB DATA: Reviewed. White count 14.4, hemoglobin 10.8, hematocrit 33.1, platelet count is normal. PT, INR, PTT normal. Sodium, potassium, chloride, CO2 normal. Anion gap normal. BUN and creatinine were 20 and 0.88 respectively. Lactic acid was initially 2.7, then down to 0.8. Urine is noted. Influenza studies were negative. Chest x-ray shows some right middle lobe infiltrate. Medications are reviewed. ASSESSMENT: 1. Chronic obstructive pulmonary disease exacerbation complicated by right middle lobe pneumonia. 2. Chronic hypoxemic respiratory failure. 3. History of congestive heart failure. 4. History of hyperlipidemia. 5. History of hypertension. 6. History of sinus infection. 7. Previous history of tubal ligation and cataract surgery. PLAN: The patient's medications are reviewed. Additional recommendations and suggestions are forthcoming. Prognosis is guarded. Will continue to follow. The patient will be placed on a short-acting beta agonist, short-acting muscarinic antagonist, long-acting beta agonist, inhaled corticosteroids, systemic corticosteroids and antibiotics. Will continue to follow. MMODL / IJN: [id number] /
[2019-01-31 17:05] LABS: Glucose,Whole Blood 151 mg/dL (75-99)
[2019-01-31] MEDS: INSULIN ASPART (NovoLOG) 100 UNIT/ML VIAL SQ SCH ×2 (17:40→20:48)
[2019-01-31] MEDS: ENOXAPARIN 40 MG/0.4 ML SYRINGE SQ SCH (20:22)
[2019-01-31 20:51] LABS: Glucose,Whole Blood 192 mg/dL (75-99)
--- NOTE | 2019-01-31 23:07 | PN ---
PROGRESS NOTE DATE OF SERVICE: January 31 2019. PRESENTING COMPLAINT: Cough, short of breath. INTERVAL HISTORY: Patient admitted with pneumonia, acute hypoxic respiratory failure, COPD exacerbation. Feels a bit better. Cough. No sputum. Did eat a little bit better. Sitting up on a chair. REVIEW OF SYSTEMS: Done for constitutional, cardiovascular, GI, pulmonary and relevant findings as above. CURRENT MEDICATIONS: Reviewed that include bronchodilators, Azithromycin, ceftriaxone, IV Solu-Medrol. PHYSICAL EXAMINATION: VITAL SIGNS: Temperature 98.1, pulse 94, respirations 20, blood pressure 117/58, pulse ox 92 percent on 4 L. GENERAL: Sitting up a bit less tired. EYES: Pupils equal. Conjunctivae normal. NECK: JVD not raised. Mass not palpable. RESPIRATORY: Effort increased. LUNGS: Diminished breath sounds. Prolonged expiration. Less crackles. CARDIOVASCULAR: First and second sounds normal. No edema. ABDOMEN: Soft, nontender. Liver and spleen not palpable. PSYCHIATRY: Alert and oriented times three. Mood and affect normal. INVESTIGATIONS: Accu-Cheks are noted. ASSESSMENT: 1. Right lower lobe and middle lobe pneumonia suspect gram-negative organism causing sepsis, POA, slow to respond. 2. Acute hypoxic respiratory failure from above. 3. Acute chronic obstructive pulmonary disease exacerbation in an ex-smoker, severe, slow to respond. 4. Primary osteoarthritis. 5. Hyperlipidemia. 6. Essential hypertension. PLAN: Continue with IV steroids, bronchodilators. Encourage the patient to sit up more. Blood cultures are negative. Overall prognosis is guarded. The patient probably in the hospital for at least 2 more days. MMODL / IJN: [id number] /
[2019-02-01] MEDS: IPRATROPIUM-ALBUTEROL 3 ML NEB INHALATION SCH ×5 (03:16→21:26)
[2019-02-01] MEDS: SODIUM CHLORIDE 0.9% 1,000 ML IV SCH ×3 (04:26→20:57)
[2019-02-01 06:12] LABS: Glucose,Whole Blood 171 mg/dL (75-99)
[2019-02-01] MEDS: PANTOPRAZOLE 40 MG TABLET PO SCH (06:48)
[2019-02-01] MEDS: INSULIN ASPART (NovoLOG) 100 UNIT/ML VIAL SQ SCH ×4 (06:48→20:47)
[2019-02-01] MEDS: methylPREDNISolone SOD SUCCI 125 MG/2 ML VIAL IV SCH ×3 (06:49→17:06)
[2019-02-01] MEDS: CYCLOBENZAPRINE 10 MG TAB PO SCH (08:11)
[2019-02-01] MEDS: ZINC SULFATE 220 MG CAP PO SCH (08:11)
[2019-02-01] MEDS: VITAMIN E (DL,TOCOPHERYL ACET) 400 UNIT CAP PO SCH (08:11)
[2019-02-01] MEDS: AZITHROMYCIN 500 MG TAB PO SCH (08:11)
[2019-02-01] MEDS: ATORVASTATIN 20 MG TAB PO SCH (08:12)
[2019-02-01] MEDS: ASCORBIC ACID 500 MG TAB PO SCH (08:12)
[2019-02-01] MEDS: VIT A,C & E-LUTEIN-MINERALS 1 EACH TAB PO SCH (08:12)
[2019-02-01] MEDS: guaiFENesin 600 MG TABLET.ER PO SCH ×2 (08:12→20:44)
[2019-02-01] MEDS: ASPIRIN 81 MG PO SCH (08:12)
[2019-02-01] MEDS: FORMOTEROL FUMARATE 20 MCG/2 ML NEBU INHALATION SCH ×2 (08:23→21:26)
[2019-02-01] MEDS: BUDESONIDE 1 MG/2 ML NEBU INHALATION SCH ×2 (08:23→21:26)
[2019-02-01 09:12] LABS: HCT 30.2 % (34.0-46.0); HGB 9.9 gm/dL (11.4-16.0); Hypochromasia Slight; MCHC 32.6 g/dL (31.0-37.0); MCV 88.9 fL (80.0-100.0); Mean Platelet Volume 7.7; Platelet Count 275 k/uL (150-450); RDW 13.8 % (11.5-15.5)
[2019-02-01 09:38] LABS: Anion Gap 9 mmol/L; Blood Urea Nitrogen 20 mg/dL (7-17); Calcium 8.3 mg/dL (8.4-10.2); Carbon Dioxide 21 mmol/L (22-30); Chloride 108 mmol/L (98-107); Glucose 169 mg/dL (74-99); Potassium 3.5 mmol/L (3.5-5.1); Sodium 138 mmol/L (137-145)
[2019-02-01 12:06] LABS: Glucose,Whole Blood 176 mg/dL (75-99)
--- NOTE | 2019-02-01 12:29 | P.PN ---
Subjective Progress Note Date: 02/01/19 Principal diagnosis: Shortness of breath, cough and fever On 01/24/2018 patient seen in follow-up on selective care unit, dyspneic even with speaking and any exertion, lung sounds reveal diminished breath sounds, with bibasilar crackles, remains on 4 L of oxygen the pulse ox is 94%, afebrile, hemodynamically patient is stable, blood cultures so far showed no growth, urine culture is pending, no sputum culture was sent, were unable to collect a sputum culture. Today's labs have been reviewed, and showed white blood cell, 9.0, hemoglobin of 9.9, sodium of 138, potassium is 3.5, chloride is 108, CO2 is 21, BUN was 20 and creatinine was 0.64. Antibiotic coverage in the form of Rocephin, and Zithromax, patient is on IV steroids at 60 mg, Pulmicort and Perforomist and DuoNeb nebulized treatments. Objective - Vital Signs Vital signs: Vital Signs Temp 97.6 F 02/01/19 07:00 Pulse 92 02/01/19 11:45 Resp 22 02/01/19 07:00 BP 115/57 02/01/19 07:00 Pulse Ox 94 L 02/01/19 07:00 Intake & Output 01/31/19 02/01/19 02/01/19 18:59 06:59 18:59 Intake Total 950 240 200 Output Total 300 Balance 650 240 200 Weight 63.8 kg Intake: Intake, IV Titration 850 Amount Sodium Chloride 0.9% 1, 800 000 ml @ 100 mls/hr IV . Q10H TRISTEN Rx#:[id number] cefTRIAXone 1 gm In 50 Sodium Chloride 0.9% 50 ml @ 100 mls/hr IVPB Q24HR TRISTEN Rx#:[id number] Oral 100 240 200 Output: Urine 300 Other: # Voids 1 - Exam GENERAL EXAM: Alert, pleasant, 83-year-old white female, in 4 L of oxygen, dyspneic with conversation, and exertion comfortable in no apparent distress. HEAD: Normocephalic/atraumatic. EYES: Normal reaction of pupils, equal size. Conjunctiva pink, sclera white. NOSE: Clear with pink turbinates. THROAT: No erythema or exudates. NECK: No masses, no JVD, no thyroid enlargement, no adenopathy. CHEST: No chest wall deformity. Symmetrical expansion. LUNGS: Equal air entry with diminished breath sounds at the bases, and rales at the bases CVS: Regular rate and rhythm, normal S1 and S2, no gallops, no murmurs, no rubs ABDOMEN: Soft, nontender. No hepatosplenomegaly, normal bowel sounds, no guarding or rigidity. EXTREMITIES: No clubbing, no edema, no cyanosis, 2+ pulses and upper and lower extremities. MUSCULOSKELETAL: Muscle strength and tone normal. SPINE: No scoliosis or deformity SKIN: No rashes CENTRAL NERVOUS SYSTEM: Alert and oriented -3. No focal deficits, tone is normal in all 4 extremities. PSYCHIATRIC: Alert and oriented -3. Appropriate affect. Intact judgment and insight. - Labs CBC & Chem 7: 02/01/19 09:06 02/01/19 09:06 Labs: Abnormal Lab Results - Last 24 Hours (Table) 01/31/19 01/31/19 02/01/19 Range/Units 17:03 20:40 06:10 RBC (3.80-5.40) m/uL Hgb (11.4-16.0) gm/dL Hct (34.0-46.0) % Chloride (98-107) mmol/L Carbon Dioxide (22-30) mmol/L BUN (7-17) mg/dL Glucose (74-99) mg/dL POC Glucose (mg/dL) 151 H 192 H 171 H (75-99) mg/dL Calcium (8.4-10.2) mg/dL 02/01/19 02/01/19 02/01/19 Range/Units 09:06 09:06 11:55 RBC 3.40 L (3.80-5.40) m/uL Hgb 9.9 L (11.4-16.0) gm/dL Hct 30.2 L (34.0-46.0) % Chloride 108 H (98-107) mmol/L Carbon Dioxide 21 L (22-30) mmol/L BUN 20 H (7-17) mg/dL Glucose 169 H (74-99) mg/dL POC Glucose (mg/dL) 176 H (75-99) mg/dL Calcium 8.3 L (8.4-10.2) mg/dL Microbiology - Last 24 Hours (Table) 01/30/19 17:32 Blood Culture - Preliminary Blood No Growth after 24 hours 01/30/19 16:35 Blood Culture - Preliminary Blood No Growth after 24 hours 01/31/19 12:48 Urine Culture - Preliminary Urine,Clean Catch Assessment and Plan Plan: Assessment: #1. Acute exacerbation of chronic obstructive pulmonary disease complicated by right middle lobe pneumonia #2. Chronic hypoxemic respiratory failure related to COPD #3. History of congestive heart failure #4. History of hyperlipidemia #5. History of hypertension #6. History of sinus infections #7. History of cataract surgery, and history of tubal ligation #8. History of nicotine dependence, currently in remission Plan: Continue current antibiotic coverage, current dose of IV steroids, nebulized bronchodilators, Pulmicort and Perforomist, patient is still quite dyspneic, even with the very light exertion and speaking, not quite back to baseline, follow-up chest x-ray in the morning, we'll continue to follow I performed a history & physical examination of the patient and discussed their management with my nurse practitioner, Mary Godwin. I reviewed the nurse practitioner's note and agree with the documented findings and plan of care. Lung sounds are positive for diminished breath sounds, and bibasilar crackles. The findings and the impression was discussed with the patient. I attest to the documentation by the nurse practitioner. Time with Patient: Less than 30
[2019-02-01 17:00] LABS: Glucose,Whole Blood 149 mg/dL (75-99)
[2019-02-01 20:41] LABS: Glucose,Whole Blood 220 mg/dL (75-99)
[2019-02-01] MEDS: ENOXAPARIN 40 MG/0.4 ML SYRINGE SQ SCH (20:43)
--- NOTE | 2019-02-02 00:01 | PN ---
PROGRESS NOTE DATE OF SERVICE: February 01, 2019. PRESENTING COMPLAINT: Cough, short of breath. INTERVAL HISTORY: Patient with pneumonia, acute hypoxic respiratory failure, COPD exacerbation. Breathing is a bit better. Tolerating a diet. Still congested. Sitting up on a chair. Granddaughter is visiting. REVIEW OF SYSTEMS: Done for constitutional, cardiovascular, GI, pulmonary; relevant findings as above. CURRENT MEDICATIONS: Reviewed that include DuoNeb, IV ceftriaxone, Mucinex, IV Solu-Medrol, normal saline. PHYSICAL EXAMINATION: VITAL SIGNS: Temperature 97.4, pulse 97, respirations 20, blood pressure 107/75. Pulse ox 94 percent on 4 L. GENERAL APPEARANCE: Sitting up, more awake. EYES: Pupils equal. Conjunctivae normal. NECK: JVD not raised. Mass not palpable. RESPIRATORY: Effort increased. LUNGS: Decreased breath sounds. Prolonged expiration. Expiratory crackles. CARDIOVASCULAR: First and second sounds normal. No edema. ABDOMEN: Soft, nontender. Liver and spleen not palpable. PSYCHIATRY: Alert and oriented x3. Mood and affect normal. INVESTIGATIONS: White count 9, hemoglobin 9.9, potassium 3.5, BUN 20, creatinine 0.64. ASSESSMENT: 1. Right lower lobe and middle lobe pneumonia suspect gram-negative organism causing sepsis, POA, slow to respond. 2. Acute hypoxic respiratory failure from above. 3. Acute chronic obstructive pulmonary disease exacerbation in an ex-smoker, severe. 4. Primary osteoarthritis. 5. Hyperlipidemia. 6. Essential hypertension. PLAN: We will scale back the dose of steroids. Continue with bronchodilators, antibiotics. We will DC the IV fluids, give a smaller dose of IV Lasix in the morning. Repeat a chest x-ray. Try to taper down the oxygen. Expect her to be here for another day or 2 depending how she does. MMODL / IJN: [id number] /
[2019-02-02] MEDS: IPRATROPIUM-ALBUTEROL 3 ML NEB INHALATION SCH ×6 (00:59→20:52)
[2019-02-02 05:40] LABS: Glucose,Whole Blood 169 mg/dL (75-99)
[2019-02-02] MEDS: INSULIN ASPART (NovoLOG) 100 UNIT/ML VIAL SQ SCH ×4 (06:47→20:52)
[2019-02-02] MEDS: PANTOPRAZOLE 40 MG TABLET PO SCH (06:47)
[2019-02-02] MEDS ORDERED: FUROSEMIDE 10 MG/ML 2 ML VIAL IV SCH (07:00)
[2019-02-02] MEDS: FORMOTEROL FUMARATE 20 MCG/2 ML NEBU INHALATION SCH ×2 (08:29→20:52)
[2019-02-02] MEDS: BUDESONIDE 1 MG/2 ML NEBU INHALATION SCH ×2 (08:29→20:52)
--- NOTE | 2019-02-02 08:44 | XR ---
EXAMINATION TYPE: XR chest 2V DATE OF EXAM: 02/02/2019 COMPARISON: 01/30/2019 TECHNIQUE: PA and lateral views submitted. HISTORY: Shortness of breath FINDINGS: Hyperinflation suggests COPD and there is bilateral consolidation and pleural effusion. The heart is enlarged. Diffuse interstitial pattern noted. Degenerative change of the spine. There is prominence t he right hilum. Underlying mass or adenopathy suspected. IMPRESSION: 1. COPD with findings suspicious of the CHF with bilateral effusion. Otherwise consider pneumonia. 2. Rounded masslike density in the right hilum. CT chest recommended to assess for adenopathy or mass .
[2019-02-02] MEDS: methylPREDNISolone SOD SUCCI 40 MG/ML 1 ML VIAL IV SCH ×2 (09:27→20:49)
[2019-02-02] MEDS: ATORVASTATIN 20 MG TAB PO SCH (09:27)
[2019-02-02] MEDS: CYCLOBENZAPRINE 10 MG TAB PO SCH (09:27)
[2019-02-02] MEDS: guaiFENesin 600 MG TABLET.ER PO SCH ×2 (09:27→20:49)
[2019-02-02] MEDS: ASPIRIN 81 MG PO SCH (09:27)
[2019-02-02] MEDS: AZITHROMYCIN 500 MG TAB PO SCH (09:27)
[2019-02-02] MEDS: ASCORBIC ACID 500 MG TAB PO SCH (09:28)
[2019-02-02] MEDS: VIT A,C & E-LUTEIN-MINERALS 1 EACH TAB PO SCH (09:29)
[2019-02-02] MEDS: VITAMIN E (DL,TOCOPHERYL ACET) 400 UNIT CAP PO SCH (09:29)
[2019-02-02] MEDS: ZINC SULFATE 220 MG CAP PO SCH (09:29)
[2019-02-02] MEDS ORDERED: FLUCONAZOLE 100 MG TAB PO ONE (11:30)
[2019-02-02 11:36] LABS: Glucose,Whole Blood 139 mg/dL (75-99)
[2019-02-02] MEDS ORDERED: VANCOMYCIN IV PER PHARMACY 1 EACH MISC MISCELLANE PRN (12:56)
[2019-02-02] MEDS: VANCOMYCIN 1,250 MG in SODIUM CHLORIDE 0.9% 250 ML IVPB SCH (14:55)
[2019-02-02] MEDS ORDERED: FUROSEMIDE 10 MG/ML 4 ML VIAL IV STA (15:47)
[2019-02-02] MEDS ORDERED: RX INFO: IV CONTRAST WAS GIVEN 1 EACH MISC MISCELLANE PRN (15:47)
--- NOTE | 2019-02-02 16:17 | PN ---
PROGRESS NOTE DATE OF DISCHARGE: 02/02/2019. PRESENTING COMPLAINT: Short of breath. INTERVAL HISTORY: Patient admitted with pneumonia, acute hypoxic respiratory failure, COPD exacerbation. Breathing continues to improve. Some congestion in the chest. Did tolerate some diet. A bit tired. REVIEW OF SYSTEMS: Done for constitutional, cardiovascular, GI, pulmonary; relevant findings as above. CURRENT MEDICATIONS: Reviewed that include DuoNeb, IV Solu-Medrol, Omnicef. The patient's blood cultures coming back reporting gram-positive cocci. PHYSICAL EXAMINATION: VITAL SIGNS: Temperature 98, pulse 101, respiration 18. Blood pressure 126/60. Pulse ox 95% on 2 L. GENERAL APPEARANCE: Sitting up, less short of breath. EYES: Pupils equal. Conjunctivae normal. NECK: JVD not raised. Mass not palpable. RESPIRATORY: Effort increased. LUNGS: Decreased breath sounds. Prolonged expiration. Expiratory crackles. CARDIOVASCULAR: First and second sounds normal. No edema. ABDOMEN: Soft, nontender. Liver and spleen not palpable. PSYCHIATRY: Alert and oriented x3. Mood and affect normal. INVESTIGATIONS: Accu-Cheks are noted. Chest x-ray personally reviewed by me shows some venous prominence. Report questions mass on the right side. Blood cultures are showing gram- positive cocci. ASSESSMENT: 1. Right lower lobe and right middle lobe pneumonia suspect gram-negative organism causing sepsis, POA. 2. Blood cultures positive for gram-positive cocci. 3. Repeat chest x-ray reporting questionable mass. 4. Acute hypoxic respiratory failure from above. 5. Acute chronic obstructive pulmonary disease exacerbation in an ex-smoker, severe. 6. Primary osteoarthritis. 7. Hyperlipidemia. 8. Essential hypertension. 9. Question questionable fluid overload from IV fluids. PLAN: IV fluids was cut back yesterday. Will give another dose of IV Lasix 40 mg x1 now. We will get a CT scan of the chest with contrast to rule out any mass. Continue the current dose of Solu-Medrol. There is a some pharyngeal Shellie for which patient is on Diflucan. Follow. MMODL / IJN: [id number] /
--- NOTE | 2019-02-02 16:31 | P.PN ---
Subjective Progress Note Date: 02/02/19 Principal diagnosis: Shortness of breath, cough and fever On 01/24/2018 patient seen in follow-up on selective care unit, dyspneic even with speaking and any exertion, lung sounds reveal diminished breath sounds, with bibasilar crackles, remains on 4 L of oxygen the pulse ox is 94%, afebrile, hemodynamically patient is stable, blood cultures so far showed no growth, urine culture is pending, no sputum culture was sent, were unable to collect a sputum culture. Today's labs have been reviewed, and showed white blood cell, 9.0, hemoglobin of 9.9, sodium of 138, potassium is 3.5, chloride is 108, CO2 is 21, BUN was 20 and creatinine was 0.64. Antibiotic coverage in the form of Rocephin, and Zithromax, patient is on IV steroids at 60 mg, Pulmicort and Perforomist and DuoNeb nebulized treatments. On 02/02/2019 patient seen in follow-up on selective care unit, she is awake and alert, she is on 2 L of oxygen per pulse ox is 95%, urine and blood cultures showed no growth, no fever or chills, chest x-ray shows bilateral pleural effusions, patient is on the combination of Rocephin and Zithromax, and vancomycin was added by the attending physician, lung sounds reveal bilateral rales, and patient has a dry nonproductive cough, overall she states her breathing is improving, no new labs today. She did receive a 20 mg of IV Lasix earlier today, we'll give the patient additional dose of IV Lasix this evening. Objective - Vital Signs Vital signs: Vital Signs Temp 98 F 02/02/19 09:25 Pulse 84 02/02/19 12:06 Resp 18 02/02/19 09:25 BP 126/60 02/02/19 09:25 Pulse Ox 95 02/02/19 09:25 Intake & Output 02/01/19 02/02/19 02/02/19 18:59 06:59 18:59 Intake Total 680 600 Balance 680 600 Weight 65.2 kg Intake: Oral 680 600 Other: # Voids 3 1 1 # Bowel Movements 1 1 - Exam GENERAL EXAM: Alert, pleasant, 83-year-old white female, in 2 L of oxygen, dyspneic with conversation, and exertion comfortable in no apparent distress. HEAD: Normocephalic/atraumatic. EYES: Normal reaction of pupils, equal size. Conjunctiva pink, sclera white. NOSE: Clear with pink turbinates. THROAT: No erythema or exudates. NECK: No masses, no JVD, no thyroid enlargement, no adenopathy. CHEST: No chest wall deformity. Symmetrical expansion. LUNGS: Equal air entry with diminished breath sounds at the bases, and rales at the bases CVS: Regular rate and rhythm, normal S1 and S2, no gallops, no murmurs, no rubs ABDOMEN: Soft, nontender. No hepatosplenomegaly, normal bowel sounds, no guarding or rigidity. EXTREMITIES: No clubbing, no edema, no cyanosis, 2+ pulses and upper and lower extremities. MUSCULOSKELETAL: Muscle strength and tone normal. SPINE: No scoliosis or deformity SKIN: No rashes CENTRAL NERVOUS SYSTEM: Alert and oriented -3. No focal deficits, tone is normal in all 4 extremities. PSYCHIATRIC: Alert and oriented -3. Appropriate affect. Intact judgment and insight. - Labs CBC & Chem 7: 02/01/19 09:06 02/01/19 09:06 Labs: Abnormal Lab Results - Last 24 Hours (Table) 02/01/19 02/01/19 02/02/19 Range/Units 16:57 20:39 05:38 POC Glucose (mg/dL) 149 H 220 H 169 H (75-99) mg/dL 02/02/19 Range/Units 11:27 POC Glucose (mg/dL) 139 H (75-99) mg/dL Microbiology - Last 24 Hours (Table) 01/30/19 16:35 Blood Culture Gram Stain - Preliminary Blood 01/30/19 16:35 Blood Culture - Final Blood 01/31/19 12:48 Urine Culture - Final Urine,Clean Catch 01/30/19 17:32 Blood Culture - Preliminary Blood No Growth after 48 hours Assessment and Plan Plan: Assessment: #1. Acute exacerbation of chronic obstructive pulmonary disease complicated by right middle lobe pneumonia #2. Chronic hypoxemic respiratory failure related to COPD #3. History of congestive heart failure #4. History of hyperlipidemia #5. History of hypertension #6. History of sinus infections #7. History of cataract surgery, and history of tubal ligation #8. History of nicotine dependence, currently in remission Plan: Follow-up chest x-ray from today was reviewed with Dr. Lewis, shows bilateral pleural effusions, patient received a dose of IV Lasix earlier today, she will receive additional dose of IV Lasix this evening, continue with current antibiotic coverage, culture data has been reviewed and remains negative thus far, no fever or chills, FiO2 is down to 2 L. Overall patient states she is breathing easier, we'll continue to follow. I performed a history & physical examination of the patient and discussed their management with my nurse practitioner, Mary Godwin. I reviewed the nurse practitioner's note and agree with the documented findings and plan of care. Lung sounds are positive for diminished breath sounds, and bibasilar crackles. The findings and the impression was discussed with the patient. I attest to the documentation by the nurse practitioner. Time with Patient: Less than 30
[2019-02-02 16:37] LABS: Glucose,Whole Blood 129 mg/dL (75-99)
--- NOTE | 2019-02-02 18:40 | CT ---
EXAMINATION TYPE: CT chest w con DATE OF EXAM: 02/02/2019 COMPARISON: CT chest November 25 2017. Chest x-ray earlier today. HISTORY: Abnormal cxr. CT DLP: 251.9 mGycm. Automated Exposure Control for Dose Reduction was Utilized. TECHNIQUE: CT scan of the thorax is performed following with IV Contrast, patient injected with 100 mL of Isovue 300. FINDINGS: LUNGS: Moderate underlying emphysematous changes redemonstrated. There is confirmation of small right pleural effusion. Tiny left pleural effusion. There is associated right basilar compressive atelecta sis. There is bibasilar linear scarring and/or atelectasis. No suspicious nodules or masses. Right-si ded volume loss is noted. MEDIASTINUM: There are no greater than 1 cm hilar or mediastinal lymph nodes. Slightly prominent but subcentimeter right hilar lymph nodes are present. Small to tiny pericardial effusion is increased i n size from prior. No cardiomegaly is evident. Coronary artery calcification is redemonstrated which is noted marked underlying coronary artery disease. OTHER: Stable low dense left adrenal mass axial image 51 measuring 1.9 x 1.3 cm. Some exaggerated tho racic kyphosis is seen IMPRESSION: 1. No suspicious masses or adenopathy with particular attention to the right hilum at area of x-ray c oncern. 2. Moderate emphysematous change with small to tiny right greater than left pleural effusions.
[2019-02-02] MEDS: ENOXAPARIN 40 MG/0.4 ML SYRINGE SQ SCH (20:49)
[2019-02-02 20:51] LABS: Glucose,Whole Blood 153 mg/dL (75-99)
[2019-02-03] MEDS: IPRATROPIUM-ALBUTEROL 3 ML NEB INHALATION SCH ×6 (00:21→19:57)
[2019-02-03 05:47] LABS: Glucose,Whole Blood 224 mg/dL (75-99)
[2019-02-03] MEDS: PANTOPRAZOLE 40 MG TABLET PO SCH (06:27)
[2019-02-03] MEDS: VANCOMYCIN 1,250 MG in SODIUM CHLORIDE 0.9% 250 ML IVPB SCH ×2 (06:27→23:18)
[2019-02-03] MEDS: INSULIN ASPART (NovoLOG) 100 UNIT/ML VIAL SQ SCH ×4 (06:29→23:19)
[2019-02-03] MEDS: BUDESONIDE 1 MG/2 ML NEBU INHALATION SCH ×2 (08:15→19:57)
[2019-02-03] MEDS: FORMOTEROL FUMARATE 20 MCG/2 ML NEBU INHALATION SCH ×2 (08:15→19:57)
[2019-02-03] MEDS: AZITHROMYCIN 500 MG TAB PO SCH (08:28)
[2019-02-03] MEDS: ZINC SULFATE 220 MG CAP PO SCH (08:28)
[2019-02-03] MEDS: ATORVASTATIN 20 MG TAB PO SCH (08:28)
[2019-02-03] MEDS: methylPREDNISolone SOD SUCCI 40 MG/ML 1 ML VIAL IV SCH ×2 (08:28→21:27)
[2019-02-03] MEDS: ASPIRIN 81 MG PO SCH (08:28)
[2019-02-03] MEDS: ASCORBIC ACID 500 MG TAB PO SCH (08:28)
[2019-02-03] MEDS: VIT A,C & E-LUTEIN-MINERALS 1 EACH TAB PO SCH (08:28)
[2019-02-03] MEDS: VITAMIN E (DL,TOCOPHERYL ACET) 400 UNIT CAP PO SCH (08:28)
[2019-02-03] MEDS: FLUCONAZOLE 100 MG TAB PO SCH (08:29)
[2019-02-03] MEDS: CEFDINIR 300 MG CAP PO SCH ×2 (08:29→21:28)
[2019-02-03] MEDS: CYCLOBENZAPRINE 10 MG TAB PO SCH (08:29)
[2019-02-03] MEDS: guaiFENesin 600 MG TABLET.ER PO SCH ×2 (08:29→21:28)
[2019-02-03 11:20] LABS: Glucose,Whole Blood 146 mg/dL (75-99)
--- NOTE | 2019-02-03 13:06 | P.PN ---
Subjective Progress Note Date: 02/03/19 Principal diagnosis: Acute exacerbation of chronic obstructive pulmonary disease complicated by right middle lobe pneumonia. The patient is seen today 02/03/2019 in follow-up on the selective care unit. She is currently resting comfortably in bed. Awake and alert in no acute d istress. She continues with a loose nonproductive cough. No chills or night sweats. Maintaining O2 saturations up to 100% on 3 L/m per nasal cannula. She's been afebrile. Hemodynamically stable. CAT scan of the chest reveals no suspicious masses or adenopathy in especially in the right hilum area. There is moderate emphysematous changes with small to tiny right greater than left pleural effusions. Blood and urine cultures reveal no growth. She remains on vancomycin, Omnicef, bronchodilators and IV Solu-Medrol. Objective - Vital Signs Vital signs: Vital Signs Temp 97.6 F 02/03/19 06:39 Pulse 90 02/03/19 11:39 Resp 18 02/03/19 08:36 BP 129/69 02/03/19 08:36 Pulse Ox 100 02/03/19 08:36 Intake & Output 02/02/19 02/03/19 02/03/19 18:59 06:59 18:59 Intake Total 600 60 240 Balance 600 60 240 Weight 64.5 kg Intake: IV 60 Sodium Chloride 0.9% 1, 60 000 ml @ 100 mls/hr IV . Q10H TRISTEN Rx#:[id number] Oral 600 240 Other: # Voids 1 1 - Exam GENERAL EXAM: Alert, pleasant, 83-year-old female, on 3 L of oxygen, dyspneic with conversation, and exertion comfortable in no apparent distress. HEAD: Normocephalic/atraumatic. EYES: Normal reaction of pupils, equal size. Conjunctiva pink, sclera white. NOSE: Clear with pink turbinates. THROAT: No erythema or exudates. NECK: No masses, no JVD, no thyroid enlargement, no adenopathy. CHEST: No chest wall deformity. Symmetrical expansion. LUNGS: Equal air entry with diminished breath sounds at the bases, and rales at the bases CVS: Regular rate and rhythm, normal S1 and S2, no gallops, no murmurs, no rubs ABDOMEN: Soft, nontender. No hepatosplenomegaly, normal bowel sounds, no guarding or rigidity. EXTREMITIES: No clubbing, no edema, no cyanosis, 2+ pulses and upper and lower extremities. MUSCULOSKELETAL: Muscle strength and tone normal. SPINE: No scoliosis or deformity SKIN: No rashes CENTRAL NERVOUS SYSTEM: Alert and oriented -3. No focal deficits, tone is normal in all 4 extremities. PSYCHIATRIC: Alert and oriented -3. Appropriate affect. Intact judgment and insight. - Labs CBC & Chem 7: 02/01/19 09:06 02/01/19 09:06 Labs: Abnormal Lab Results - Last 24 Hours (Table) 02/02/19 02/02/19 02/03/19 Range/Units 16:33 20:49 05:46 POC Glucose (mg/dL) 129 H 153 H 224 H (75-99) mg/dL 02/03/19 Range/Units 11:19 POC Glucose (mg/dL) 146 H (75-99) mg/dL Microbiology - Last 24 Hours (Table) 01/30/19 16:35 Blood Culture Gram Stain - Preliminary Blood Blood Culture - Preliminary Micrococcus species 01/30/19 17:32 Blood Culture - Preliminary Blood No Growth after 72 hours 01/30/19 16:35 Blood Culture - Final Blood Assessment and Plan Assessment: Assessment: #1. Acute exacerbation of chronic obstructive pulmonary disease complicated by right middle lobe pneumonia #2. Chronic hypoxemic respiratory failure related to COPD #3. History of congestive heart failure #4. History of hyperlipidemia #5. History of hypertension #6. History of sinus infections #7. History of cataract surgery, and history of tubal ligation #8. History of nicotine dependence, currently in remission Plan: The patient was seen and evaluated by Dr. Lewis. CAT scan, cultures and labs all reviewed. She is improved today as compared to yesterday. We'll continue with the current treatment plan. We will increase her activity as tolerated. We'll continue to follow. I, the cosigning physician, performed a history & physical examination of the patient. Lungs sounds with faint crackles in bilateral posterior bases. Mainta ining good O2 saturations in the 90s on 3 L/m per nasal cannula. I discussed the assessment and plan of care with my nurse practitioner, Leatha Ram. I attest to the above note as dictated by her.
[2019-02-03 16:13] LABS: Glucose,Whole Blood 211 mg/dL (75-99)
[2019-02-03] MEDS: HYDROcodone/APAP 5-325MG 1 EACH TAB PO PRN ×2 (17:43→23:21)
[2019-02-03 20:31] LABS: Glucose,Whole Blood 90 mg/dL (75-99)
[2019-02-03] MEDS: ENOXAPARIN 40 MG/0.4 ML SYRINGE SQ SCH (21:28)
--- NOTE | 2019-02-03 23:34 | PN ---
PROGRESS NOTE DATE OF SERVICE: February 02, 2019. ADDENDUM: My progress note dictated on February 02, 2019 at 3:52 pm it should read date of service not date of discharge as February 02, 2019. MMODL / IJN: [id number] /
--- NOTE | 2019-02-03 23:49 | PN ---
PROGRESS NOTE DATE OF SERVICE: 02/03/2019 PRESENTING COMPLAINT: Short of breath. INTERVAL HISTORY: Patient admitted with pneumonia, acute hypoxic respiratory failure, COPD exacerbation. Breathing slowly improving. Gets easily tired, short winded, eating better did sit up. REVIEW OF SYSTEMS: Done for constitutional, cardiovascular, GI, pulmonary; relevant findings as above. CURRENT MEDICATIONS: Reviewed that include DuoNeb, IV Solu-Medrol, vancomycin, Diflucan. EXAMINATION: VITAL SIGNS: Temp 97.8, pulse 107, respirations 16, blood pressure 131/64, pulse ox 95% on 3 L. GENERAL APPEARANCE: Sitting up, short of breath, a bit less. EYES: Pupils equal. Conjunctivae normal. NECK: JVD not raised. Mass not palpable. RESPIRATORY: Effort increased. LUNGS: Decreased breath sounds. Prolonged expiration. CARDIOVASCULAR: 1st and 2nd sounds normal. No edema. ABDOMEN: Soft, nontender. Liver and spleen not palpable. PSYCHIATRY: Alert orient x3. Mood and affect slightly anxious-appearing. INVESTIGATIONS: Accu-Cheks are noted. CT scan of the chest shows moderate emphysematous changes. ASSESSMENT: 1. Right middle and lower lobe pneumonia suspect gram-negative organism, POA causing sepsis, POA. 2. Blood cultures positive for micrococcus species. 3. Chest mass ruled out by CT scan. 4. Acute hypoxic respiratory failure from above. 5. Acute chronic obstructive pulmonary disease in an ex-smoker, severe, slow to respond. 6. Primary osteoarthritis. 7. Hyperlipidemia. 8. Essential hypertension. 9. Acute pharyngeal candidiasis. PLAN: The patient has advanced COPD, is slowly improving. Expect the patient to be in the hospital for another day or 2 at least. Given the micrococcus, which is probably skin contamination, vancomycin will be discontinued. MMODL / IJN: [id number] /
[2019-02-04] MEDS: IPRATROPIUM-ALBUTEROL 3 ML NEB INHALATION SCH ×7 (01:05→23:45)
[2019-02-04] MEDS: CYCLOBENZAPRINE 10 MG TAB PO SCH (07:00)
[2019-02-04] MEDS: guaiFENesin 600 MG TABLET.ER PO SCH ×2 (07:00→21:02)
[2019-02-04] MEDS: ASPIRIN 81 MG PO SCH (07:00)
[2019-02-04] MEDS: VITAMIN E (DL,TOCOPHERYL ACET) 400 UNIT CAP PO SCH (07:00)
[2019-02-04] MEDS: PANTOPRAZOLE 40 MG TABLET PO SCH (07:00)
[2019-02-04] MEDS: ATORVASTATIN 20 MG TAB PO SCH (07:00)
[2019-02-04] MEDS: ZINC SULFATE 220 MG CAP PO SCH (07:01)
[2019-02-04] MEDS: BUDESONIDE 1 MG/2 ML NEBU INHALATION SCH ×2 (07:04→20:43)
[2019-02-04] MEDS: FORMOTEROL FUMARATE 20 MCG/2 ML NEBU INHALATION SCH ×2 (07:04→20:43)
[2019-02-04] MEDS: methylPREDNISolone SOD SUCCI 40 MG/ML 1 ML VIAL IV SCH ×2 (07:07→21:01)
[2019-02-04 07:08] LABS: Glucose,Whole Blood 129 mg/dL (75-99)
[2019-02-04] MEDS: INSULIN ASPART (NovoLOG) 100 UNIT/ML VIAL SQ SCH ×4 (07:08→20:57)
[2019-02-04 07:39] LABS: HCT 33.1 % (34.0-46.0); HGB 10.6 gm/dL (11.4-16.0); MCH 28.4 pg (25.0-35.0); MCHC 32.2 g/dL (31.0-37.0); MCV 88.4 fL (80.0-100.0); Mean Platelet Volume 7.1; Platelet Count 401 k/uL (150-450); RBC 3.74 m/uL (3.80-5.40); RDW 14.5 % (11.5-15.5); WBC 20.8 k/uL (3.8-10.6)
[2019-02-04 07:53] LABS: Anion Gap 9 mmol/L; Blood Urea Nitrogen 21 mg/dL (7-17); Calcium 9.4 mg/dL (8.4-10.2); Carbon Dioxide 25 mmol/L (22-30); Chloride 102 mmol/L (98-107); Glucose 125 mg/dL (74-99); Potassium 4.5 mmol/L (3.5-5.1); Sodium 136 mmol/L (137-145)
[2019-02-04] MEDS: AZITHROMYCIN 500 MG TAB PO SCH (08:06)
[2019-02-04] MEDS: ASCORBIC ACID 500 MG TAB PO SCH (08:06)
[2019-02-04] MEDS: VIT A,C & E-LUTEIN-MINERALS 1 EACH TAB PO SCH (08:06)
[2019-02-04] MEDS: CEFDINIR 300 MG CAP PO SCH ×2 (08:06→21:02)
[2019-02-04] MEDS: FLUCONAZOLE 100 MG TAB PO SCH (08:06)
[2019-02-04 08:07] LABS: Band Neutrophils % 2 %; Lymphocytes # (M) 1.25 k/uL (1.0-4.8); Metamyelocytes # (M) 0.62 k/uL (0); Metamyelocytes % 3 %; Monocytes # (M) 0.62 k/uL (0-1.0); Myelocytes # (M) 0.83 k/uL (0); Myelocytes % 4 %; Neutrophils % (M) 85 %; Nucleated Red Blood Cells 0 /100 WBC (0-0); Total Cells Counted 200
[2019-02-04] MEDS ORDERED: FUROSEMIDE 10 MG/ML 4 ML VIAL IV STA (09:17)
--- NOTE | 2019-02-04 11:11 | XR ---
EXAMINATION TYPE: XR chest 2V DATE OF EXAM: 02/04/2019 COMPARISON: 02/02/2019 TECHNIQUE: PA and lateral views submitted. HISTORY: Shortness of breath FINDINGS: There is diffuse osteopenia. Arthropathy of the shoulders. Bilateral consolidation and small effusion . Heart is mildly prominent and there is central interstitial prominence. No pneumothorax. Underlying COPD noted. Hypertrophic and degenerative change of the spine. Calcific tendinosis right shoulder. IMPRESSION: 1. COPD with bilateral effusions correlate for mild central central venous congestion otherwise consi angie pneumonia.
[2019-02-04 11:44] LABS: Glucose,Whole Blood 123 mg/dL (75-99)
[2019-02-04] MEDS: HYDROcodone/APAP 5-325MG 1 EACH TAB PO PRN (14:09)
--- NOTE | 2019-02-04 14:33 | US ---
EXAMINATION TYPE: US venous doppler duplex LE DATE OF EXAM: 02/04/2019 2:12 PM COMPARISON: NONE CLINICAL HISTORY: assymetric leg swelling. Right leg edema SIDE PERFORMED: Bilateral TECHNIQUE: The lower extremity deep venous system is examined utilizing real time linear array sonog kathy with graded compression, doppler sonography and color-flow sonography. VESSELS IMAGED: External Iliac Vein (EIV) Common Femoral Vein Deep Femoral Vein Greater Saphenous Vein * Femoral Vein Popliteal Vein Small Saphenous Vein * Proximal Calf Veins (* superficial vessels) Right Leg: No evidence of DVT Left Leg: No evidence of DVT IMPRESSION: 1. No diagnostic evidence of DVT as visualized.
--- NOTE | 2019-02-04 16:00 | PN ---
PROGRESS NOTE DATE OF SERVICE: 02/04/2019 This 83-year-old woman who was admitted with right middle lung pneumonia also had positive blood cultures of micrococcus. Repeat cultures are negative so far. The patient is being closely monitored. Multiple consultants are following the patient closely. Past medical history reviewed. REVIEW OF SYSTEMS: CARDIOVASCULAR SYSTEM: No angina, palpitations. RESPIRATORY SYSTEM: As mentioned earlier. GI: No nausea, vomiting. : No dysuria or retention. NERVOUS SYSTEM: No numbness, weakness. CURRENT MEDICATIONS: Current medications are reviewed. They include: 1. Tylenol 650 q.6 p.r.n. 2. Bartelso 5 mg q.6 p.r.n. 3. DuoNeb q.i.d. and p.r.n. 4. Vitamin C 500 mg daily. 5. Lipitor 20 mg daily. 6. Zithromax 500 mg p.o. daily. 7. Pulmicort 1 mg b.i.d. 8. Omnicef 300 mg p.o. b.i.d. 9. Flexeril 10 mg each morning. 10.Lovenox 40 mg subcutaneously daily. 11.Diflucan 100 mg daily. 12.Perforomist b.i.d. 13.Mucinex b.i.d. 14.Motrin p.r.n. 15.NovoLog before meals and at bedtime per scale. 16.Solu-Medrol 40 IV b.i.d. 17.Ivite daily. 18.Narcan. 19.Zofran 4 mg p.r.n. 20.Protonix 40 mg daily. 21.Vitamin E 400 mg daily. 22.Zinc 220 mg p.o. daily. PHYSICAL EXAMINATION: Patient is alert, oriented x3. The pulse is 99, blood pressure 144/67, respiration 22, temperature 97.7, pulse ox 93% on 3 L. The patient is still short of breath at rest. HEENT: Conjunctivae normal. NECK: No jugular venous distention. CARDIOVASCULAR SYSTEM: S1, S2 muffled. RESPIRATORY SYSTEM: Breath sounds diminished at the bases. Bilateral scattered rhonchi and crackles. ABDOMEN: Soft, non-tender. LEGS: No edema. No swelling. NERVOUS SYSTEM: No focal deficit. LABS: WBC 20.8, hemoglobin 10.6. Sodium 136. ASSESSMENT: 1. Chronic obstructive pulmonary disease, acute exacerbation, with right middle lobe pneumonia, possibly gram-negative. 2. Chronic hypoxic respiratory failure secondary to chronic obstructive pulmonary disease, on home oxygen. 3. Blood cultures for micrococcus, possibly contaminant. 4. Chest mass ruled out by CT scan. 5. Acute hypoxic respiratory failure from above. 6. History of smoking. 7. Degenerative joint disease. 8. Hyperlipidemia. 9. Hypertension. 10.Acute pharyngeal candidiasis. RECOMMENDATIONS AND DISCUSSION: I recommend to continue current medications, continue with the monitoring, symptomatic treatment. Continue with antibiotics. The most recent chest x-ray which was personally reviewed by me showed COPD with bilateral effusions and some central venous congestion also. We will continue to monitor, continue the antibiotics, continue the rest of the medications. Close follow with Dr. Lewis. Guarded prognosis. Further recommendations to follow. MMODL / IJN: [id number] /
[2019-02-04 16:59] LABS: Glucose,Whole Blood 140 mg/dL (75-99)
--- NOTE | 2019-02-04 17:12 | P.PN ---
Subjective Progress Note Date: 02/04/19 Principal diagnosis: Shortness of breath, cough and fever On 01/24/2018 patient seen in follow-up on selective care unit, dyspneic even with speaking and any exertion, lung sounds reveal diminished breath sounds, with bibasilar crackles, remains on 4 L of oxygen the pulse ox is 94%, afebrile, hemodynamically patient is stable, blood cultures so far showed no growth, urine culture is pending, no sputum culture was sent, were unable to collect a sputum culture. Today's labs have been reviewed, and showed white blood cell, 9.0, hemoglobin of 9.9, sodium of 138, potassium is 3.5, chloride is 108, CO2 is 21, BUN was 20 and creatinine was 0.64. Antibiotic coverage in the form of Rocephin, and Zithromax, patient is on IV steroids at 60 mg, Pulmicort and Perforomist and DuoNeb nebulized treatments. On 02/02/2019 patient seen in follow-up on selective care unit, she is awake and alert, she is on 2 L of oxygen per pulse ox is 95%, urine and blood cultures showed no growth, no fever or chills, chest x-ray shows bilateral pleural effusions, patient is on the combination of Rocephin and Zithromax, and vancomycin was added by the attending physician, lung sounds reveal bilateral rales, and patient has a dry nonproductive cough, overall she states her breathing is improving, no new labs today. She did receive a 20 mg of IV Lasix earlier today, we'll give the patient additional dose of IV Lasix this evening. On 02/04/2019 patient is seen in follow-up on medical surgical floor. Currently this morning patient had a episode of increased shortness of breath, and states chest x-ray was obtained, and showed COPD with bilateral effusions and mild central venous congestion, she was given a dose of IV Lasix 40 mg IV push, and patient has been diuresing, and she is breathing easier. Remains on supplemental oxygen 3 L, the pulse ox of 92%, afebrile, no complaints of chest pain. No fever or chills. Blood culture from 01/30/2019 showed micrococcus species, final culture is pending, follow-up culture showed no growth, urine culture was negative. Today's labs have been reviewed, and there has been increase in patient's white blood cell count up to 20, but patient is afebrile, renal profile is stable, with BUN of 21 creatinine 0.68, electrolytes are unremarkable. Objective - Vital Signs Vital signs: Vital Signs Temp 98.0 F 02/04/19 14:11 Pulse 114 H 02/04/19 14:11 Resp 24 02/04/19 14:11 BP 152/79 02/04/19 14:11 Pulse Ox 92 L 02/04/19 14:11 Intake & Output 02/03/19 02/04/19 02/04/19 18:59 06:59 18:59 Intake Total 720 600 Output Total 300 Balance 420 600 Weight 66.4 kg Intake: Oral 720 600 Output: Urine 300 Other: # Voids 1 5 # Bowel Movements 0 - Exam GENERAL EXAM: Alert, pleasant, 83-year-old white female, in 2 L of oxygen, dyspneic with conversation, and exertion comfortable in no apparent distress. HEAD: Normocephalic/atraumatic. EYES: Normal reaction of pupils, equal size. Conjunctiva pink, sclera white. NOSE: Clear with pink turbinates. THROAT: No erythema or exudates. NECK: No masses, no JVD, no thyroid enlargement, no adenopathy. CHEST: No chest wall deformity. Symmetrical expansion. LUNGS: Equal air entry with diminished breath sounds at the bases, and rales at the bases CVS: Regular rate and rhythm, normal S1 and S2, no gallops, no murmurs, no rubs ABDOMEN: Soft, nontender. No hepatosplenomegaly, normal bowel sounds, no guarding or rigidity. EXTREMITIES: No clubbing, no edema, no cyanosis, 2+ pulses and upper and lower extremities. MUSCULOSKELETAL: Muscle strength and tone normal. SPINE: No scoliosis or deformity SKIN: No rashes CENTRAL NERVOUS SYSTEM: Alert and oriented -3. No focal deficits, tone is normal in all 4 extremities. PSYCHIATRIC: Alert and oriented -3. Appropriate affect. Intact judgment and insight. - Labs CBC & Chem 7: 02/04/19 06:47 02/04/19 06:47 Labs: Abnormal Lab Results - Last 24 Hours (Table) 02/04/19 02/04/19 02/04/19 Range/Units 06:47 06:47 07:02 WBC 20.8 H (3.8-10.6) k/uL RBC 3.74 L (3.80-5.40) m/uL Hgb 10.6 L (11.4-16.0) gm/dL Hct 33.1 L (34.0-46.0) % Neutrophils # (Manual) 18.00 H (1.3-7.7) k/uL Metamyelocytes # (Man) 0.62 H (0) k/uL Myelocytes # (Manual) 0.83 H (0) k/uL Sodium 136 L (137-145) mmol/L BUN 21 H (7-17) mg/dL Glucose 125 H (74-99) mg/dL POC Glucose (mg/dL) 129 H (75-99) mg/dL 02/04/19 02/04/19 Range/Units 11:40 16:55 WBC (3.8-10.6) k/uL RBC (3.80-5.40) m/uL Hgb (11.4-16.0) gm/dL Hct (34.0-46.0) % Neutrophils # (Manual) (1.3-7.7) k/uL Metamyelocytes # (Man) (0) k/uL Myelocytes # (Manual) (0) k/uL Sodium (137-145) mmol/L BUN (7-17) mg/dL Glucose (74-99) mg/dL POC Glucose (mg/dL) 123 H 140 H (75-99) mg/dL Microbiology - Last 24 Hours (Table) 01/30/19 16:35 Blood Culture Gram Stain - Final Blood Blood Culture - Final Micrococcus species 01/30/19 17:32 Blood Culture - Preliminary Blood No Growth after 96 hours Assessment and Plan Plan: Assessment: #1. Acute exacerbation of chronic obstructive pulmonary disease complicated by right middle lobe pneumonia #2. Chronic hypoxemic respiratory failure related to COPD #3. History of congestive heart failure #4. History of hyperlipidemia #5. History of hypertension #6. History of sinus infections #7. History of cataract surgery, and history of tubal ligation #8. History of nicotine dependence, currently in remission Plan: Patient was given additional dose of IV Lasix today, with improvement in her respiratory illness, patient is breathing easier, remains on supplemental oxygen, there has been increase in her white blood cell, but patient clinically has no fever or chills, no cough or congestion. Today's chest x-ray has been reviewed with Dr. Lewis, shows COPD with bilateral pleural effusions, continue current antibiotic coverage. Monitor electrolytes, renal profile, con tinue with nebulized bronchodilators. I performed a history & physical examination of the patient and discussed their management with my nurse practitioner, Mary Godwin. I reviewed the nurse practitioner's note and agree with the documented findings and plan of care. Lung sounds are positive for diminished breath sounds, and bibasilar crackles. The findings and the impression was discussed with the patient. I attest to the documentation by the nurse practitioner. Time with Patient: Less than 30
[2019-02-04 20:35] LABS: Glucose,Whole Blood 127 mg/dL (75-99)
[2019-02-04] MEDS: ENOXAPARIN 40 MG/0.4 ML SYRINGE SQ SCH (21:02)
[2019-02-05] MEDS: IPRATROPIUM-ALBUTEROL 3 ML NEB INHALATION SCH ×6 (03:58→23:55)
[2019-02-05] MEDS: CEFDINIR 300 MG CAP PO SCH ×2 (07:11→20:18)
[2019-02-05] MEDS: AZITHROMYCIN 500 MG TAB PO SCH (07:11)
[2019-02-05] MEDS: methylPREDNISolone SOD SUCCI 40 MG/ML 1 ML VIAL IV SCH (07:11)
[2019-02-05] MEDS: PANTOPRAZOLE 40 MG TABLET PO SCH (07:11)
[2019-02-05] MEDS: VIT A,C & E-LUTEIN-MINERALS 1 EACH TAB PO SCH (07:11)
[2019-02-05] MEDS: FORMOTEROL FUMARATE 20 MCG/2 ML NEBU INHALATION SCH ×2 (07:11→20:36)
[2019-02-05] MEDS: BUDESONIDE 1 MG/2 ML NEBU INHALATION SCH ×2 (07:11→20:10)
[2019-02-05 07:12] LABS: Glucose,Whole Blood 154 mg/dL (75-99)
[2019-02-05] MEDS: VITAMIN E (DL,TOCOPHERYL ACET) 400 UNIT CAP PO SCH (07:12)
[2019-02-05] MEDS: ASPIRIN 81 MG PO SCH (07:12)
[2019-02-05] MEDS: guaiFENesin 600 MG TABLET.ER PO SCH ×2 (07:12→20:17)
[2019-02-05] MEDS: ZINC SULFATE 220 MG CAP PO SCH (07:12)
[2019-02-05] MEDS: ATORVASTATIN 20 MG TAB PO SCH (07:12)
[2019-02-05] MEDS: ASCORBIC ACID 500 MG TAB PO SCH (07:12)
[2019-02-05] MEDS: FLUCONAZOLE 100 MG TAB PO SCH (07:12)
[2019-02-05] MEDS: CYCLOBENZAPRINE 10 MG TAB PO SCH (07:13)
[2019-02-05] MEDS: INSULIN ASPART (NovoLOG) 100 UNIT/ML VIAL SQ SCH ×4 (07:24→21:04)
[2019-02-05 08:44] LABS: HCT 33.4 % (34.0-46.0); HGB 10.5 gm/dL (11.4-16.0); Hypochromasia Slight; MCH 28.2 pg (25.0-35.0); MCHC 31.4 g/dL (31.0-37.0); MCV 89.9 fL (80.0-100.0); Mean Platelet Volume 7.5; Platelet Count 376 k/uL (150-450); RBC 3.71 m/uL (3.80-5.40); RDW 14.8 % (11.5-15.5); WBC 18.5 k/uL (3.8-10.6)
[2019-02-05 09:08] LABS: Calcium 9.2 mg/dL (8.4-10.2); Potassium 4.3 mmol/L (3.5-5.1)
[2019-02-05 11:55] LABS: Glucose,Whole Blood 141 mg/dL (75-99)
[2019-02-05 11:56] VITALS: BMI 27.1
[2019-02-05] MEDS ORDERED: FUROSEMIDE 10 MG/ML 2 ML VIAL IV STA (12:03)
[2019-02-05] MEDS: HYDROcodone/APAP 5-325MG 1 EACH TAB PO PRN ×2 (12:30→23:20)
[2019-02-05 16:59] LABS: Glucose,Whole Blood 129 mg/dL (75-99)
--- NOTE | 2019-02-05 19:04 | P.PN ---
Subjective Progress Note Date: 02/05/19 Principal diagnosis: Shortness of breath, cough and fever On 01/24/2018 patient seen in follow-up on selective care unit, dyspneic even with speaking and any exertion, lung sounds reveal diminished breath sounds, with bibasilar crackles, remains on 4 L of oxygen the pulse ox is 94%, afebrile, hemodynamically patient is stable, blood cultures so far showed no growth, urine culture is pending, no sputum culture was sent, were unable to collect a sputum culture. Today's labs have been reviewed, and showed white blood cell, 9.0, hemoglobin of 9.9, sodium of 138, potassium is 3.5, chloride is 108, CO2 is 21, BUN was 20 and creatinine was 0.64. Antibiotic coverage in the form of Rocephin, and Zithromax, patient is on IV steroids at 60 mg, Pulmicort and Perforomist and DuoNeb nebulized treatments. On 02/02/2019 patient seen in follow-up on selective care unit, she is awake and alert, she is on 2 L of oxygen per pulse ox is 95%, urine and blood cultures showed no growth, no fever or chills, chest x-ray shows bilateral pleural effusions, patient is on the combination of Rocephin and Zithromax, and vancomycin was added by the attending physician, lung sounds reveal bilateral rales, and patient has a dry nonproductive cough, overall she states her breathing is improving, no new labs today. She did receive a 20 mg of IV Lasix earlier today, we'll give the patient additional dose of IV Lasix this evening. On 02/04/2019 patient is seen in follow-up on medical surgical floor. Currently this morning patient had a episode of increased shortness of breath, and states chest x-ray was obtained, and showed COPD with bilateral effusions and mild central venous congestion, she was given a dose of IV Lasix 40 mg IV push, and patient has been diuresing, and she is breathing easier. Remains on supplemental oxygen 3 L, the pulse ox of 92%, afebrile, no complaints of chest pain. No fever or chills. Blood culture from 01/30/2019 showed micrococcus species, final culture is pending, follow-up culture showed no growth, urine culture was negative. Today's labs have been reviewed, and there has been increase in patient's white blood cell count up to 20, but patient is afebrile, renal profile is stable, with BUN of 21 creatinine 0.68, electrolytes are unremarkable. On 02/05/2019 patient seen in follow-up on medical surgical floor. Yesterday patient received another dose of IV Lasix, patient is in -1300 fluid balance, and she is breathing easier. Still has some pretibial edema, lung sounds are clear, vital signs are stable, no complaint of chest pain. No fever or chills, has oxygen at 5 L, her pulse ox of 97%, will wean it down. Today's labs have been reviewed, and showed the white blood cell count of 18.5, 20.8, serum sodium of 135, and recently electrolytes were within normal limits, BUN of 22, creatinine 0.73. No wheezing, no rhonchi, no chest congestion or cough. We'll transition the steroids to oral prednisone Objective - Vital Signs Vital signs: Vital Signs Temp 98.1 F 02/05/19 14:48 Pulse 88 02/05/19 16:30 Resp 18 02/05/19 14:52 BP 130/75 02/05/19 14:48 Pulse Ox 97 02/05/19 14:48 Intake & Output 02/04/19 02/05/19 02/05/19 18:59 06:59 18:59 Intake Total 240 Output Total 1600 Balance -1360 Weight 66.4 kg 65.3 kg 65.3 kg Intake: Oral 240 Output: Urine 1600 Other: # Voids 5 2 2 # Bowel Movements 0 0 - Exam GENERAL EXAM: Alert, pleasant, 83-year-old white female, in 2 L of oxygen,comfortable in no apparent distress. HEAD: Normocephalic/atraumatic. EYES: Normal reaction of pupils, equal size. Conjunctiva pink, sclera white. NOSE: Clear with pink turbinates. THROAT: No erythema or exudates. NECK: No masses, no JVD, no thyroid enlargement, no adenopathy. CHEST: No chest wall deformity. Symmetrical expansion. LUNGS: Equal air entry with diminished breath sounds at the bases, rhonchi, no rales no wheezes CVS: Regular rate and rhythm, normal S1 and S2, no gallops, no murmurs, no rubs ABDOMEN: Soft, nontender. No hepatosplenomegaly, normal bowel sounds, no guarding or rigidity. EXTREMITIES: No clubbing, one plus edema, no cyanosis, 2+ pulses and upper and lower extremities. MUSCULOSKELETAL: Muscle strength and tone normal. SPINE: No scoliosis or deformity SKIN: No rashes CENTRAL NERVOUS SYSTEM: Alert and oriented -3. No focal deficits, tone is normal in all 4 extremities. PSYCHIATRIC: Alert and oriented -3. Appropriate affect. Intact judgment and insight. - Labs CBC & Chem 7: 02/05/19 05:51 02/05/19 05:51 Labs: Abnormal Lab Results - Last 24 Hours (Table) 02/04/19 02/05/19 02/05/19 Range/Units 20:34 05:51 05:51 WBC 18.5 H (3.8-10.6) k/uL RBC 3.71 L (3.80-5.40) m/uL Hgb 10.5 L (11.4-16.0) gm/dL Hct 33.4 L (34.0-46.0) % Sodium 135 L (137-145) mmol/L BUN 22 H (7-17) mg/dL Glucose 152 H (74-99) mg/dL POC Glucose (mg/dL) 127 H (75-99) mg/dL 02/05/19 02/05/19 02/05/19 Range/Units 07:11 11:53 16:57 WBC (3.8-10.6) k/uL RBC (3.80-5.40) m/uL Hgb (11.4-16.0) gm/dL Hct (34.0-46.0) % Sodium (137-145) mmol/L BUN (7-17) mg/dL Glucose (74-99) mg/dL POC Glucose (mg/dL) 154 H 141 H 129 H (75-99) mg/dL Microbiology - Last 24 Hours (Table) 01/30/19 17:32 Blood Culture - Preliminary Blood No Growth after 120 hours Assessment and Plan Plan: Assessment: #1. Acute exacerbation of chronic obstructive pulmonary disease complicated by right middle lobe pneumonia #2. Chronic hypoxemic respiratory failure related to COPD #3. History of congestive heart failure #4. History of hyperlipidemia #5. History of hypertension #6. History of sinus infections #7. History of cataract surgery, and history of tubal ligation #8. History of nicotine dependence, currently in remission Plan: We will give the patient on a dose of IV Lasix today, she has responded well to a dose of IV Lasix yesterday, diuresed, she is a negative fluid balance, she is breathing easier, still has some lower extremity edema, we'll repeat a chest x- ray in the morning, continue current antibiotics, no fever or chills, white count is trending down, we'll transition the steroids to oral prednisone. Continue to follow I performed a history & physical examination of the patient and discussed their management with my nurse practitioner, Mary Godwin. I reviewed the nurse practitioner's note and agree with the documented findings and plan of care. Lung sounds are positive for diminished breath sounds, and bibasilar crackles. The findings and the impression was discussed with the patient. I attest to the documentation by the nurse practitioner. Time with Patient: Less than 30
--- NOTE | 2019-02-05 19:57 | PN ---
PROGRESS NOTE DATE OF SERVICE: 02/05/2019 This 83-year-old woman who was admitted with COPD acute exacerbation with right middle lobe pneumonia is being closely monitored. No chest pain. No palpitations. No fever. The patient is on IV antibiotics. EXAM: GENERAL: Alert and oriented x3. VITAL SIGNS: The pulse is 79, blood pressure 130/75, respirations 18, temperature 98.1. Pulse ox 97% on 5 L. HEENT is conjunctivae normal. NECK: No jugular venous distention. CARDIOVASCULAR: S1, S2 muffled. RESPIRATIONS: Breath sounds diminished in the bases. A few scattered rhonchi and crackles. Expiratory wheezing also present. ABDOMEN: Soft, nontender. LEGS: No edema, no swelling. CENTRAL NERVOUS SYSTEM: No focal deficits. LABS: WBC 18.8, hemoglobin is 10.5. ASSESSMENT: 1. Chronic obstructive pulmonary disease acute exacerbation with right middle lobe pneumonia with possibly gram-negative with sepsis present on admission. 2. Chronic hypoxic respiratory failure secondary to chronic obstructive pulmonary disease on home oxygen. 3. Blood cultures for micrococcus, possibly contaminant. 4. Chest mass ruled out by CT scan. 5. Acute hypoxic respiratory failure from the above. 6. History of smoking. 7. Degenerative joint disease. 8. Hyperlipidemia. 9. Hypertension. 10.Acute pharyngeal candidiasis. RECOMMENDATIONS AND DISCUSSION: In this 83-year-old woman who presented with multiple medical issues, we will monitor the patient closely, continue the current medications, management and symptomatic treatment. Otherwise, at this time, continue the bronchodilators. Continue the antibiotics. Closely follow with Dr. Lewis. Guarded prognosis because of multiple complex medical issues. Further recommendations to follow. MMODL / IJN: [id number] /
[2019-02-05] MEDS: ENOXAPARIN 40 MG/0.4 ML SYRINGE SQ SCH (20:18)
[2019-02-05 20:56] LABS: Glucose,Whole Blood 115 mg/dL (75-99)
[2019-02-06] MEDS: IPRATROPIUM-ALBUTEROL 3 ML NEB INHALATION SCH ×6 (04:05→23:37)
[2019-02-06 07:10] LABS: Glucose,Whole Blood 101 mg/dL (75-99)
[2019-02-06] MEDS: guaiFENesin 600 MG TABLET.ER PO SCH ×2 (07:22→21:32)
[2019-02-06] MEDS: FLUCONAZOLE 100 MG TAB PO SCH (07:30)
[2019-02-06] MEDS: ZINC SULFATE 220 MG CAP PO SCH (07:30)
[2019-02-06] MEDS: predniSONE 10 MG TAB PO SCH (07:30)
[2019-02-06] MEDS: VIT A,C & E-LUTEIN-MINERALS 1 EACH TAB PO SCH (07:30)
[2019-02-06] MEDS: PANTOPRAZOLE 40 MG TABLET PO SCH (07:31)
[2019-02-06] MEDS: AZITHROMYCIN 500 MG TAB PO SCH (07:31)
[2019-02-06] MEDS: CEFDINIR 300 MG CAP PO SCH ×2 (07:31→22:42)
[2019-02-06] MEDS: CYCLOBENZAPRINE 10 MG TAB PO SCH (07:31)
[2019-02-06] MEDS: ASCORBIC ACID 500 MG TAB PO SCH (07:31)
[2019-02-06] MEDS: INSULIN ASPART (NovoLOG) 100 UNIT/ML VIAL SQ SCH ×4 (07:32→21:34)
[2019-02-06] MEDS: FORMOTEROL FUMARATE 20 MCG/2 ML NEBU INHALATION SCH ×2 (09:28→20:02)
[2019-02-06] MEDS: BUDESONIDE 1 MG/2 ML NEBU INHALATION SCH ×2 (09:28→20:02)
[2019-02-06 11:14] LABS: Glucose,Whole Blood 111 mg/dL (75-99)
[2019-02-06] MEDS: ASPIRIN 81 MG PO SCH (11:43)
[2019-02-06] MEDS: ATORVASTATIN 20 MG TAB PO SCH (11:43)
[2019-02-06] MEDS: VITAMIN E (DL,TOCOPHERYL ACET) 400 UNIT CAP PO SCH (11:43)
[2019-02-06] MEDS: MAG HYDROX/AL HYDROX/SIMETH 30 ML, LIDOCAINE VISCOUS 30 ML, diphenhydrAMINE ELIXIR 75 M... PO SCH ×12 (12:13→21:34)
--- NOTE | 2019-02-06 14:49 | P.PN ---
Subjective Progress Note Date: 02/06/19 Principal diagnosis: Shortness of breath, cough and fever On 01/24/2018 patient seen in follow-up on selective care unit, dyspneic even with speaking and any exertion, lung sounds reveal diminished breath sounds, with bibasilar crackles, remains on 4 L of oxygen the pulse ox is 94%, afebrile, hemodynamically patient is stable, blood cultures so far showed no growth, urine culture is pending, no sputum culture was sent, were unable to collect a sputum culture. Today's labs have been reviewed, and showed white blood cell, 9.0, hemoglobin of 9.9, sodium of 138, potassium is 3.5, chloride is 108, CO2 is 21, BUN was 20 and creatinine was 0.64. Antibiotic coverage in the form of Rocephin, and Zithromax, patient is on IV steroids at 60 mg, Pulmicort and Perforomist and DuoNeb nebulized treatments. On 02/02/2019 patient seen in follow-up on selective care unit, she is awake and alert, she is on 2 L of oxygen per pulse ox is 95%, urine and blood cultures showed no growth, no fever or chills, chest x-ray shows bilateral pleural effusions, patient is on the combination of Rocephin and Zithromax, and vancomycin was added by the attending physician, lung sounds reveal bilateral rales, and patient has a dry nonproductive cough, overall she states her breathing is improving, no new labs today. She did receive a 20 mg of IV Lasix earlier today, we'll give the patient additional dose of IV Lasix this evening. On 02/04/2019 patient is seen in follow-up on medical surgical floor. Currently this morning patient had a episode of increased shortness of breath, and states chest x-ray was obtained, and showed COPD with bilateral effusions and mild central venous congestion, she was given a dose of IV Lasix 40 mg IV push, and patient has been diuresing, and she is breathing easier. Remains on supplemental oxygen 3 L, the pulse ox of 92%, afebrile, no complaints of chest pain. No fever or chills. Blood culture from 01/30/2019 showed micrococcus species, final culture is pending, follow-up culture showed no growth, urine culture was negative. Today's labs have been reviewed, and there has been increase in patient's white blood cell count up to 20, but patient is afebrile, renal profile is stable, with BUN of 21 creatinine 0.68, electrolytes are unremarkable. On 02/05/2019 patient seen in follow-up on medical surgical floor. Yesterday patient received another dose of IV Lasix, patient is in -1300 fluid balance, and she is breathing easier. Still has some pretibial edema, lung sounds are clear, vital signs are stable, no complaint of chest pain. No fever or chills, has oxygen at 5 L, her pulse ox of 97%, will wean it down. Today's labs have been reviewed, and showed the white blood cell count of 18.5, 20.8, serum sodium of 135, and recently electrolytes were within normal limits, BUN of 22, creatinine 0.73. No wheezing, no rhonchi, no chest congestion or cough. We'll transition the steroids to oral prednisone On 02/06/2019 patient seen in follow-up on medical surgical floor. She is awake and alert, in no acute distress, lung sounds are completely clear on today's exam, patient is doing quite well, yesterday she received a dose of IV Lasix. She diuresed, she is breathing easier, no new labs or chest x-rays today. Vital signs have been stable, no acute events overnight. No fever or chills. From pulmonary perspective patient is stable for discharge home today Objective - Vital Signs Vital signs: Vital Signs Temp 98 F 02/06/19 05:01 Pulse 96 02/06/19 12:44 Resp 18 02/06/19 08:00 BP 117/68 02/06/19 05:01 Pulse Ox 99 02/06/19 05:01 Intake & Output 02/05/19 02/06/19 02/06/19 18:59 06:59 18:59 Intake Total 240 160 Output Total 1600 600 Balance -1360 -440 Weight 65.3 kg 65.2 kg Intake: Oral 240 160 Output: Urine 1600 600 Other: # Voids 2 1 # Bowel Movements 0 - Exam GENERAL EXAM: Alert, pleasant, 83-year-old white female, in 2 L of oxygen, comfortable in no apparent distress. HEAD: Normocephalic/atraumatic. EYES: Normal reaction of pupils, equal size. Conjunctiva pink, sclera white. NOSE: Clear with pink turbinates. THROAT: No erythema or exudates. NECK: No masses, no JVD, no thyroid enlargement, no adenopathy. CHEST: No chest wall deformity. Symmetrical expansion. LUNGS: Equal air entry with diminished breath sounds at the bases, rhonchi, no rales no wheezes CVS: Regular rate and rhythm, normal S1 and S2, no gallops, no murmurs, no rubs ABDOMEN: Soft, nontender. No hepatosplenomegaly, normal bowel sounds, no guarding or rigidity. EXTREMITIES: No clubbing, one plus edema, no cyanosis, 2+ pulses and upper and lower extremities. MUSCULOSKELETAL: Muscle strength and tone normal. SPINE: No scoliosis or deformity SKIN: No rashes CENTRAL NERVOUS SYSTEM: Alert and oriented -3. No focal deficits, tone is normal in all 4 extremities. PSYCHIATRIC: Alert and oriented -3. Appropriate affect. Intact judgment and insight. - Labs CBC & Chem 7: 02/05/19 05:51 02/05/19 05:51 Labs: Abnormal Lab Results - Last 24 Hours (Table) 02/05/19 02/05/19 02/06/19 Range/Units 16:57 20:54 07:08 POC Glucose (mg/dL) 129 H 115 H 101 H (75-99) mg/dL 02/06/19 Range/Units 11:13 POC Glucose (mg/dL) 111 H (75-99) mg/dL Microbiology - Last 24 Hours (Table) 01/30/19 17:32 Blood Culture - Final Blood No Growth after 144 hours Assessment and Plan Plan: Assessment: #1. Acute exacerbation of chronic obstructive pulmonary disease complicated by right middle lobe pneumonia #2. Chronic hypoxemic respiratory failure related to COPD #3. History of congestive heart failure #4. History of hyperlipidemia #5. History of hypertension #6. History of sinus infections #7. History of cataract surgery, and history of tubal ligation #8. History of nicotine dependence, currently in remission Plan: Patient is doing well, stable, less dyspneic, lung sounds are clear on today's exam, no rhonchi or wheezing. No fever or chills. Lower extremity Dopplers were completed and showed no evidence of DVT. She has been transitioned to oral steroids, she is on Zithromax and Omnicef, from pulmonary perspective patient is stable for discharge home today. She is to follow-up with Dr. South in the office in 2 weeks I performed a history & physical examination of the patient and discussed their management with my nurse practitioner, Mary Godwin. I reviewed the nurse practitioner's note and agree with the documented findings and plan of care. Lung sounds are positive for diminished breath sounds, and bibasilar crackles. The findings and the impression was discussed with the patient. I attest to the documentation by the nurse practitioner. Time with Patient: Less than 30
[2019-02-06 16:55] LABS: Glucose,Whole Blood 150 mg/dL (75-99)
--- NOTE | 2019-02-06 17:48 | P.PN ---
Subjective Progress Note Date: 02/06/19 02/06/2019 patient seen in follow-up on medical surgical floor. She is awake and alert, in no acute distress, continues to complain of swelling both lower extremities, yesterday she received a dose of IV Lasix. Patient relates she diuresed fairly well but continues to feel fluid overloaded and extremely weak. Vital signs have been stable, no acute events overnight. No fever or chills. Patient has been cleared for discharge from pulmonary perspective; patient relates that she feels extremely exhausted and weak and want discharge held until tomorrow Objective - Vital Signs Vital signs: Vital Signs Temp 98 F 02/06/19 05:01 Pulse 100 02/06/19 09:48 Resp 18 02/06/19 08:00 BP 117/68 02/06/19 05:01 Pulse Ox 99 02/06/19 05:01 Intake & Output 02/05/19 02/06/19 02/06/19 18:59 06:59 18:59 Intake Total 240 Output Total 1600 Balance -1360 Weight 65.3 kg 65.2 kg Intake: Oral 240 Output: Urine 1600 Other: # Voids 2 1 # Bowel Movements 0 - Exam HEAD: Normocephalic/atraumatic. EYES: Normal reaction of pupils, equal size. Conjunctiva pink, sclera white. NOSE: Clear with pink turbinates. THROAT: No erythema or exudates. NECK: No masses, no JVD, no thyroid enlargement, no adenopathy. CHEST: No chest wall deformity. Symmetrical expansion. LUNGS: Equal air entry with diminished breath sounds at the bases, rhonchi, no rales no wheezes CVS: Regular rate and rhythm, normal S1 and S2, no gallops, no murmurs, no rubs ABDOMEN: Soft, nontender. No hepatosplenomegaly, normal bowel sounds, no guarding or rigidity. EXTREMITIES: No clubbing, one plus edema, no cyanosis, 2+ pulses and upper and lower extremities. MUSCULOSKELETAL: Muscle strength and tone normal. SPINE: No scoliosis or deformity SKIN: No rashes - Labs CBC & Chem 7: 02/05/19 05:51 02/05/19 05:51 Labs: Abnormal Lab Results - Last 24 Hours (Table) 02/05/19 02/05/19 02/06/19 Range/Units 16:57 20:54 07:08 POC Glucose (mg/dL) 129 H 115 H 101 H (75-99) mg/dL 02/06/19 Range/Units 11:13 POC Glucose (mg/dL) 111 H (75-99) mg/dL Microbiology - Last 24 Hours (Table) 01/30/19 17:32 Blood Culture - Final Blood No Growth after 144 hours Assessment and Plan Assessment: 1. Acute exacerbation of chronic obstructive pulmonary disease/ Right middle lobe pneumonia - Patient remains on prednisone 30 mg by mouth daily with continued tapering has able - Antibiotic therapy with Zithromax 500 mg daily and Cefdinir 300 mg twice a day - Continue with bronchodilator and steroid nebulizer treatments 2. Chronic hypoxemic respiratory failure related to COPD; resolved 3. Congestive heart failure; Lasix 20 mg IV 1 4. Hyperlipidemia; Lipitor 20 mg by mouth daily at bedtime 5. Hypertension; currently not on any antihypertensive therapy; monitor blood pressure closely and make recommendations accordingly 6. DVT prophylaxis; subcu Lovenox CODE STATUS; DO NOT RESUSCITATE Time with Patient: Greater than 30
[2019-02-06 20:50] LABS: Glucose,Whole Blood 156 mg/dL (75-99)
[2019-02-06] MEDS: ENOXAPARIN 40 MG/0.4 ML SYRINGE SQ SCH (21:33)
[2019-02-06] MEDS: HYDROcodone/APAP 5-325MG 1 EACH TAB PO PRN (21:33)
[2019-02-07] MEDS: HYDROcodone/APAP 5-325MG 1 EACH TAB PO PRN (02:56)
[2019-02-07] MEDS: IPRATROPIUM-ALBUTEROL 3 ML NEB INHALATION SCH ×3 (03:43→11:08)
[2019-02-07 05:21] VITALS: BP 147/70; RESP 20; TEMP 98.4
[2019-02-07 07:18] LABS: Glucose,Whole Blood 89 mg/dL (75-99)
[2019-02-07] MEDS: BUDESONIDE 1 MG/2 ML NEBU INHALATION SCH (07:30)
[2019-02-07] MEDS: FORMOTEROL FUMARATE 20 MCG/2 ML NEBU INHALATION SCH (07:30)
[2019-02-07] MEDS: INSULIN ASPART (NovoLOG) 100 UNIT/ML VIAL SQ SCH ×2 (07:36→11:41)
[2019-02-07] MEDS: ATORVASTATIN 20 MG TAB PO SCH (08:41)
[2019-02-07] MEDS: CEFDINIR 300 MG CAP PO SCH (08:41)
[2019-02-07] MEDS: guaiFENesin 600 MG TABLET.ER PO SCH (08:41)
[2019-02-07] MEDS: predniSONE 10 MG TAB PO SCH (08:41)
[2019-02-07] MEDS: CYCLOBENZAPRINE 10 MG TAB PO SCH (08:41)
[2019-02-07] MEDS: ASPIRIN 81 MG PO SCH (08:41)
[2019-02-07] MEDS: PANTOPRAZOLE 40 MG TABLET PO SCH (08:41)
[2019-02-07] MEDS: VIT A,C & E-LUTEIN-MINERALS 1 EACH TAB PO SCH (08:42)
[2019-02-07] MEDS: VITAMIN E (DL,TOCOPHERYL ACET) 400 UNIT CAP PO SCH (08:42)
[2019-02-07] MEDS: FLUCONAZOLE 100 MG TAB PO SCH (08:42)
[2019-02-07] MEDS: AZITHROMYCIN 500 MG TAB PO SCH (08:42)
[2019-02-07] MEDS: ZINC SULFATE 220 MG CAP PO SCH (08:42)
[2019-02-07] MEDS: ASCORBIC ACID 500 MG TAB PO SCH (08:42)
[2019-02-07] MEDS: MAG HYDROX/AL HYDROX/SIMETH 30 ML, LIDOCAINE VISCOUS 30 ML, diphenhydrAMINE ELIXIR 75 M... PO SCH ×4 (08:43)
[2019-02-07 11:11] VITALS: PULSE 80
[2019-02-07 11:26] LABS: Glucose,Whole Blood 87 mg/dL (75-99)
--- NOTE | 2019-02-09 00:05 | DS ---
DISCHARGE SUMMARY DATE OF ADMISSION: 01/30/2019 DATE OF DISCHARGE: 02/07/2019. FINAL DIAGNOSES: 1. Right middle lobe and lower lobe pneumonia suspect gram-negative organism, POA causing sepsis. 2. Contaminated blood cultures. 3. Acute hypoxic respiratory failure from pneumonia and chronic obstructive pulmonary disease. 4. Acute severe chronic obstructive pulmonary disease exacerbation an ex-smoker. 5. Primary osteoarthritis. 6. Hyperlipidemia. 7. Essential hypertension. 8. Acute pharyngeal candidiasis. HOSPITAL COURSE: Patient presented with worsening short of breath, respiratory symptoms, septic picture, pneumonia, COPD exacerbation, responded well to bronchodilators, steroids, antibiotics, feeling much better by the time of discharge. The patient did have a CT scan of the chest that did not show any mass. Care was discussed with the patient on day of discharge. Questions were answered. EXAMINATION: Temp 98.4, pulse 95, respirations 20, blood pressure 127/70, pulse ox 97% on 4 L. Lungs decreased breath sounds. ABDOMEN: Soft, nontender. INVESTIGATIONS: White count 18.5, hemoglobin 10.5, potassium 4.3. CONSULTATIONS: Dr. Lewis and colleagues from Pulmonary. DISCHARGE MEDICATIONS: 1. Ventolin HFA 2 puffs q.i.d. p.r.n. 2. Simvastatin 40 mg p.o. daily. 3. Aspirin 81 mg p.o. daily. 4. Vitamin D3 2000 units p.o. daily. 5. PreserVision 2 soft gel 1 capsule p.o. daily. 6. Pulmicort 0.5 inhalation b.i.d. 7. Calcium carbonate 5 mg p.o. daily. 8. Perforomist 20 mcg b.i.d. 9. Zinc 50 mg p.o. daily. 10.[place] 5 one tablet q.6 p.r.n. 11.Motrin 600 mg q.6h p.r.n. 12.Vitamin C 500 mg p.o. daily. 13.Flexeril 10 mg p.o. daily. 14.Vitamin E 100 units p.o. daily. 15.Diflucan 100 mg p.o. daily for 7 days. 16.DuoNeb q.i.d. 17.Zestoretic 20/12.5 one tab p.o. daily. 18.Mucinex 1200 mg p.o. q.12h. 19.Prednisone taper. 20.Home oxygen as before. FOLLOWUP: Follow up with Dr. Saab in 3 days. Follow up with Dr. South in 10 days. MMODL / IJN: [id number] /
--- NOTE | 2019-02-10 08:37 | CDI ---
Documentation Clarification Form Date: 02/10/2019 7:30:00 AM From: Cleopatra Michelle Jazmine Kaur, Manager Planning Hours-8:30 am & 5 pm M-F Admit Date: 01/30/2019 5:35:00 PM Patient Name: Nadege Marcum Visit Number: [id number] Discharge Date: 02/07/2019 3:05:00 PM ATTENTION: The Clinical Documentation Specialists (CDI) and [facility] Coding Staff appreciate your assistance in clarifying documentation. Please respond to the clarification below the line at the bottom and electronically sign. The CDI & [facility] Coding staff will review the response and follow-up if needed. Please note: Queries are made part of the Legal Health Record. If you have any questions, please contact the author of this message via ITS. Dr. Franco Zavala CHF is documented in the ED, PNs, H&P History/Risk Factors: HTN, COPD BNP: 316 Chest X Ray: 02/02 COPD with findings suspicious of CHF w/ bilateral effusion. Treatment: IV Lasix In your professional opinion, can you please clarify the acuity and type of CHF if known? Systolic Heart Failure: Acute Chronic Acute on Chronic Diastolic Heart Failure: Acute Chronic Acute on Chronic Systolic & Diastolic Heart Failure: Acute Chronic Acute on Chronic Heart Failure Unable to Determine Other, please specify NO CHF MTDD
== END 2019-02-07 15:05 | disposition home or self-care (01) | DRG 871 ==
LOC: EC 15:45 → 3SCARD 17:35 → 3NMEDONC 02-04 04:08
PROVIDERS: ADMIT Hospitalist; ATTEND Hospitalist
DX: A41.9 Sepsis, unspecified organism (principal); J18.1 Lobar pneumonia, unspecified organism; J96.21 Acute and chronic respiratory failure with hypoxia; B37.89 Other sites of candidiasis; J44.0 Chronic obstructive pulmonary disease with (acute) lower respiratory infection; J44.1 Chronic obstructive pulmonary disease with (acute) exacerbation; E87.70 Fluid overload, unspecified; M19.91 Primary osteoarthritis, unspecified site; E78.5 Hyperlipidemia, unspecified; I10 Essential (primary) hypertension; Z66 Do not resuscitate; Z71.3 Dietary counseling and surveillance; Z68.27 Body mass index [BMI] 27.0-27.9, adult; Z79.899 Other long term (current) drug therapy; Z79.82 Long term (current) use of aspirin; Z98.42 Cataract extraction status, left eye; Z87.891 Personal history of nicotine dependence; Z98.41 Cataract extraction status, right eye; Z96.1 Presence of intraocular lens; Z98.51 Tubal ligation status; Z99.81 Dependence on supplemental oxygen; Z82.49 Family history of ischemic heart disease and other diseases of the circulatory system; Z80.3 Family history of malignant neoplasm of breast
CPT/HCPCS: 36415; 71046; 71260; 80048; 80053; 80202; 81001; 82550; 83605; 83880; 84484; 85025; 85027; 85610; 85730; 87040; 87086; 87502; 93005; 93970; 94640; 94760; 96365; 96367; 96375; 99285

== ENCOUNTER 2019-03-01 21:12 | Inpatient (IN) | payer MEDICARE ==
[2019-03-01] MEDS ORDERED: IPRATROPIUM-ALBUTEROL 3 ML NEB INHALATION STA (21:20)
--- NOTE | 2019-03-01 21:20 | ED ---
SOB HPI - General Stated Complaint: Difficulty Breathing Time Seen by Provider: 03/01/19 21:15 Source: patient, EMS Mode of arrival: ambulatory Limitations: no limitations - History of Present Illness Initial Comments: Nadege is an 83-year-old female former cigarette smoker with a history of COPD was brought to the emergency department today via EMS for evaluation of his building breathing. Patient reports she's had some shortness of breath throughout the day today is progressively worsened despite using her home nebulizer and taking a dose of steroids. This evening the shortness of breath became overwhelming and she contacted EMS for transfer to the hospital. EMS reports upon their arrival patient was tachypneic, tachycardic with increased work of breathing, retractions, tripoding and was hypoxic. Patient received a DuoNeb as well as aspirin and nitro in route to the hospital. She denies any cardiac history she denies any chest pain or palpitations. She reports she [place] feels that she cannot breathe. She states that this is similar to previous COPD exacerbations. - Related Data Home Medications Medication Instructions Recorded Confirmed Albuterol Inhaler [Ventolin Hfa 2 puff INHALATION RT-QID PRN 05/17/17 03/01/19 Inhaler] Simvastatin 40 mg PO DAILY 05/17/17 03/01/19 Aspirin [Children's Aspirin] 81 mg PO DAILY 08/02/17 03/01/19 Cholecalciferol [Vitamin D3 (25 5,000 unit PO DAILY 08/02/17 03/01/19 Mcg = 1000 Iu)] Vit C/E/Zn/Coppr/Lutein/Zeaxan 1 cap PO DAILY 08/02/17 03/01/19 [Preservision Areds 2 Softgel] Budesonide [Pulmicort] 0.5 mg INHALATION RT-BID 09/15/18 03/01/19 Calcium Carbonate 500 mg PO DAILY 12/26/18 03/01/19 Formoterol Fumarate [Perforomist] 20 mcg INHALATION RT-BID 12/26/18 03/01/19 Zinc 50 mg PO DAILY 12/26/18 03/01/19 Ascorbic Acid [Vitamin C] 500 mg PO DAILY 01/30/19 03/01/19 Vitamin E 100 unit PO DAILY 01/30/19 03/01/19 Acyclovir 5% Oint [Zovirax Oint] 1 applic TOPICAL 5XD PRN 03/01/19 03/01/19 Cefuroxime Axetil [Ceftin] 500 mg PO BID 03/01/19 03/01/19 Cetirizine HCl [Zyrtec] 10 mg PO DAILY 03/01/19 03/01/19 Clotrimazole 10 mg MUCOUS MEM 5XD PRN 03/01/19 03/01/19 Fluticasone Nasal [place] [Flonase 1 spr EA NOSTRIL DAILY 03/01/19 03/01/19 Nasal [place]] Gabapentin [Neurontin] 100 mg PO HS 03/01/19 03/01/19 Ipratropium-Albuterol Nebulize 3 ml INHALATION RT-QID 03/01/19 03/01/19 [Duoneb 0.5 mg-3 mg/3 ml Soln] Losartan-Hctz 50-12.5 mg [Hyzaar 1 tab PO DAILY 03/01/19 03/01/19 50-12.5] predniSONE See Taper PO DAILY 03/01/19 03/01/19 Previous Rx's Medication Instructions Recorded HYDROcodone/APAP 5-325MG [[place] 1 tab PO Q6HR PRN 3 Days #12 tab 01/23/19 5-325] guaiFENesin [Mucinex] 1,200 mg PO Q12HR #30 tablet.er 02/07/19 Allergies Allergy/AdvReac Type Severity Reaction Status Date / Time No Known Allergies Allergy Verified 03/01/19 23:12 Review of Systems ROS Statement: Those systems with pertinent positive or pertinent negative responses have been documented in the HPI. ROS Other: All systems not noted in ROS Statement are negative. Past Medical History Past Medical History: COPD, Hyperlipidemia, Hypertension Additional Past Medical History / Comment(s): Recent sinus infection, PMH indicates CHF but pt does not recall this. History of Any Multi-Drug Resistant Organisms: None Reported Past Surgical History: Tubal Ligation Additional Past Surgical History / Comment(s): Bilateral cataract removals with lens. Past Anesthesia/Blood Transfusion Reactions: No Reported Reaction Past Psychological History: No Psychological Hx Reported Smoking Status: Former smoker Past Alcohol Use History: Rare Past Drug Use History: None Reported - Past Family History Father Family Medical History: Congestive Heart Failure (CHF) Additional Family Medical History / Comment(s): Father of CHF at the age of 70yrs. Mother Family Medical History: Cancer Additional Family Medical History / Comment(s): Mother had breast cancer and gastric ulcers. General Exam - General Exam Comments Initial Comments: Physical Exam GENERAL: Elderly female in moderate respiratory distress sitting upright with retractions HENT: Normocephalic, Atraumatic. EYES: PERRL, EOMI PULMONARY: Labored, retracting, tachypneic, wheezing in all lung hart CARDIOVASCULAR: The cardiac, regular warm and well-perfused extremities ABDOMEN: Soft and nontender with normal bowel sounds. SKIN: Skin is clear with no lesions or rashes and otherwise unremarkable. : Deferred NEUROLOGIC: Patient is alert and oriented x3. Moving all extremities spontaneously MUSCULOSKELETAL: Normal extremities with adequate strength and full range of motion. No lower extremity swelling or edema. No calf tenderness. PSYCHIATRIC: Normal psychiatric evaluation Limitations: no limitations Course Vital Signs 03/01/19 03/01/19 03/01/19 21:15 21:26 21:42 Temperature 98 F Pulse Rate 117 H 110 H 98 Respiratory 24 24 Rate Blood Pressure 169/105 O2 Sat by Pulse 98 Oximetry 03/01/19 03/01/19 22:18 23:00 Temperature 98.2 F Pulse Rate 100 98 Respiratory 24 18 Rate Blood Pressure 142/78 135/78 O2 Sat by Pulse 97 98 Oximetry Medical Decision Making - Medical Decision Making The patient was seen and evaluated, history is obtained from the patient and EMS Patient was hypertensive and given aspirin and nitro, blood pressure improving Patient is arty had steroids and 1 DuoNeb, 2 more DuoNeb's were ordered Labs with no significant abnormalities Chest x-ray no signs of pneumonia or pneumothorax excited this time patient's breathing has improved after 2 DuoNeb's however she does have some mild wheezing I do feel she will need frequent breathing treatments and steroids patient is agreeable to plan for admission for COPD exacerbation. - Lab Data Result diagrams: 03/01/19 21:25 03/01/19 21:25 Lab Results 03/01/19 03/01/19 03/01/19 Range/Units 21:25 21:25 21:25 WBC 10.0 (3.8-10.6) k/uL RBC 4.33 (3.80-5.40) m/uL Hgb 12.6 (11.4-16.0) gm/dL Hct 38.8 (34.0-46.0) % MCV 89.6 (80.0-100.0) fL MCH 29.0 (25.0-35.0) pg MCHC 32.4 (31.0-37.0) g/dL RDW 15.7 H (11.5-15.5) % Plt Count 352 (150-450) k/uL Neutrophils % 78 % Lymphocytes % 16 % Monocytes % 3 % Eosinophils % 1 % Basophils % 1 % Neutrophils # 7.8 H (1.3-7.7) k/uL Lymphocytes # 1.6 (1.0-4.8) k/uL Monocytes # 0.3 (0-1.0) k/uL Eosinophils # 0.1 (0-0.7) k/uL Basophils # 0.1 (0-0.2) k/uL PT (9.0-12.0) sec INR (<1.2) APTT (22.0-30.0) sec Sodium 132 L (137-145) mmol/L Potassium 4.3 (3.5-5.1) mmol/L Chloride 98 (98-107) mmol/L Carbon Dioxide 26 (22-30) mmol/L Anion Gap 8 mmol/L BUN 22 H (7-17) mg/dL Creatinine 0.62 (0.52-1.04) mg/dL Est GFR (CKD-EPI)AfAm >90 (>60 ml/min/1.73 sqM) Est GFR (CKD-EPI)NonAf 85 (>60 ml/min/1.73 sqM) Glucose 156 H (74-99) mg/dL Calcium 10.1 (8.4-10.2) mg/dL Magnesium 2.0 (1.6-2.3) mg/dL Total Bilirubin 0.4 (0.2-1.3) mg/dL AST 97 H (14-36) U/L ALT 121 H (9-52) U/L Alkaline Phosphatase 141 H (38-126) U/L Troponin I (0.000-0.034) ng/mL NT-Pro-B Natriuret Pep 237 pg/mL Total Protein 7.1 (6.3-8.2) g/dL Albumin 4.6 (3.5-5.0) g/dL 05/26/19 05/26/19 Range/Units 21:25 21:25 WBC (3.8-10.6) k/uL RBC (3.80-5.40) m/uL Hgb (11.4-16.0) gm/dL Hct (34.0-46.0) % MCV (80.0-100.0) fL MCH (25.0-35.0) pg MCHC (31.0-37.0) g/dL RDW (11.5-15.5) % Plt Count (150-450) k/uL Neutrophils % % Lymphocytes % % Monocytes % % Eosinophils % % Basophils % % Neutrophils # (1.3-7.7) k/uL Lymphocytes # (1.0-4.8) k/uL Monocytes # (0-1.0) k/uL Eosinophils # (0-0.7) k/uL Basophils # (0-0.2) k/uL PT 9.8 (9.0-12.0) sec INR 0.9 (<1.2) APTT 22.3 (22.0-30.0) sec Sodium (137-145) mmol/L Potassium (3.5-5.1) mmol/L Chloride (98-107) mmol/L Carbon Dioxide (22-30) mmol/L Anion Gap mmol/L BUN (7-17) mg/dL Creatinine (0.52-1.04) mg/dL Est GFR (CKD-EPI)AfAm (>60 ml/min/1.73 sqM) Est GFR (CKD-EPI)NonAf (>60 ml/min/1.73 sqM) Glucose (74-99) mg/dL Calcium (8.4-10.2) mg/dL Magnesium (1.6-2.3) mg/dL Total Bilirubin (0.2-1.3) mg/dL AST (14-36) U/L ALT (9-52) U/L Alkaline Phosphatase (38-126) U/L Troponin I <0.012 (0.000-0.034) ng/mL NT-Pro-B Natriuret Pep pg/mL Total Protein (6.3-8.2) g/dL Albumin (3.5-5.0) g/dL Critical Care Time Critical Care Time: Yes Total Critical Care Time: 30 Critical Care Time: Critical Care Time Critical care time was exclusive of separately billable procedures and treating other patients and teaching time. Critical care was necessary to treat or prevent imminent or life-threatening deterioration. Given the critical condition in which the patient arrived, the patient was immediately assessed by myself and the nurse, and cardiac monitoring initiated due to the potential for rapid decompensation of the patient's clinical condition. During the course of the patients stay, I spent a considerable amount of time at the bedside performing serial re-evaluations of the patient's hemodynamic and clinical status because of the recognized potential threat to life or limb in this condition. I then had a chance to review not only all of the available current laboratory and radiographic studies obtained today, but I also reviewed old records available to me at the time. Additionally, any ancillary information available including store person records were reviewed. Sequential vital signs were obtained. Disposition Clinical Impression: COPD exacerbation Disposition: ADMITTED IP TO THIS HOSP Condition: Stable Referrals: Nomi Saab DO [Primary Care Provider] - 1-2 days
--- NOTE | 2019-03-01 21:33 | XR ---
EXAMINATION TYPE: XR chest 1V portable DATE OF EXAM: 03/01/2019 COMPARISON: 02/04/2019 INDICATION: Chest pain TECHNIQUE: Frontal view of the chest are obtained. FINDINGS: The heart size is normal. The pulmonary vasculature is normal. The lungs are clear. Previous right pleural effusion is resolved. IMPRESSION: 1. No acute pulmonary process.
[2019-03-01 21:41] LABS: Basophils # (A) 0.1 k/uL (0-0.2); Basophils % (A) 1 %; Eosinophils # (A) 0.1 k/uL (0-0.7); Eosinophils % (A) 1 %; HCT 38.8 % (34.0-46.0); HGB 12.6 gm/dL (11.4-16.0); Lymphocytes # (A) 1.6 k/uL (1.0-4.8); Lymphocytes % (A) 16 %; MCHC 32.4 g/dL (31.0-37.0); MCV 89.6 fL (80.0-100.0); Mean Platelet Volume 6.6; Monocytes # (A) 0.3 k/uL (0-1.0); Monocytes % (A) 3 %; Neutrophils # (A) 7.8 k/uL (1.3-7.7); Neutrophils % (A) 78 %; Platelet Count 352 k/uL (150-450); RBC 4.33 m/uL (3.80-5.40); RDW 15.7 % (11.5-15.5)
[2019-03-01 21:49] LABS: ALT 121 U/L (9-52); AST 97 U/L (14-36); Albumin 4.6 g/dL (3.5-5.0); Alkaline Phosphatase 141 U/L (38-126); Anion Gap 8 mmol/L; Blood Urea Nitrogen 22 mg/dL (7-17); Calcium 10.1 mg/dL (8.4-10.2); Carbon Dioxide 26 mmol/L (22-30); Chloride 98 mmol/L (98-107); Glucose 156 mg/dL (74-99); Potassium 4.3 mmol/L (3.5-5.1); Sodium 132 mmol/L (137-145); Total Bilirubin 0.4 mg/dL (0.2-1.3); Total Protein 7.1 g/dL (6.3-8.2)
[2019-03-01 21:58] LABS: INR 0.9 (<1.2); Partial Thromboplastin Time 22.3 sec (22.0-30.0); Prothrombin Time 9.8 sec (9.0-12.0)
[2019-03-02 01:51] VITALS: BMI 25.9
[2019-03-02] MEDS: IPRATROPIUM-ALBUTEROL 3 ML NEB INHALATION PRN ×6 (03:41→22:44)
[2019-03-02] MEDS ORDERED: predniSONE 20 MG TAB PO SCH (09:00)
[2019-03-02] MEDS ORDERED: predniSONE 10 MG TAB PO SCH (09:00)
--- NOTE | 2019-03-02 10:34 | P.HPIM ---
History of Present Illness This is a pleasant 83 years old female with past medical history of COPD, hyperlipidemia, hypertension. Patient has history of COPD and she follows up with Dr. Lewis in the outpatient setting. This time presents because of dysp kath. Last week she had sinus infection and in 2 days she developed shortness of breath so last Saturday she went to her doctor who got steroid shot, she felt fine for the next 24 hours, however her symptoms returned back yesterday and she felt shortness of breath again, chest tightness, with coughing but no phlegm although she feels secretions in her chest. She denies chest pain. No change in urine or bowel habits. No fever On the presentation patient blood pressure 169/105, she is tachycardic 117, she was saturating 97% on 5 L nasal cannula, currently she is saturating 94% on 4 L oxygen via NC. Blood pressure 99/56.s WBC is 10 K, sodium 132, creatinine 0.6, glucose 156, liver enzymes slightly elevated at 121 and 141. An 0.012. EKG: showing sinus tachycardia at 116 with qTC is 425, no significant ST-T changes. Chest x-ray: No acute process. In the emergency room patient got breathing treatment. Patient is excess smoker who quit about one year and a half ago. She denies alcohol list of drugs. Past Medical History Past Medical History: COPD, Hyperlipidemia, Hypertension Additional Past Medical History / Comment(s): Recent sinus infection, PMH indicates CHF but pt does not recall this. History of Any Multi-Drug Resistant Organisms: None Reported Past Surgical History: Tubal Ligation Additional Past Surgical History / Comment(s): Bilateral cataract removals with lens. Past Anesthesia/Blood Transfusion Reactions: No Reported Reaction Past Psychological History: No Psychological Hx Reported Additional Psychological History / Comment(s): Pt resides with her spouse of 58 yrs. 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 She is independent. Smoking Status: Former smoker Past Alcohol Use History: Rare Additional Past Alcohol Use History / Comment(s): Pt started smoking in 1954. She has not felt well enough to smoke for 1 week and plans now be a nonsmoker. Past Drug Use History: None Reported - Past Family History Father Family Medical History: Congestive Heart Failure (CHF) Additional Family Medical History / Comment(s): Father of CHF at the age of 70yrs. Mother Family Medical History: Cancer Additional Family Medical History / Comment(s): Mother had breast cancer and gastric ulcers. Medications and Allergies Home Medications Medication Instructions Recorded Confirmed Type Albuterol Inhaler [Ventolin Hfa 2 puff INHALATION RT-QID PRN 05/17/17 03/01/19 History Inhaler] Simvastatin 40 mg PO DAILY 05/17/17 03/01/19 History Aspirin [Children's Aspirin] 81 mg PO DAILY 08/02/17 03/01/19 History Cholecalciferol [Vitamin D3 (25 5,000 unit PO DAILY 08/02/17 03/01/19 History Mcg = 1000 Iu)] Vit C/E/Zn/Coppr/Lutein/Zeaxan 1 cap PO DAILY 08/02/17 03/01/19 History [Preservision Areds 2 Softgel] Budesonide [Pulmicort] 0.5 mg INHALATION RT-BID 09/15/18 03/01/19 History Calcium Carbonate 500 mg PO DAILY 12/26/18 03/01/19 History Formoterol Fumarate [Perforomist] 20 mcg INHALATION RT-BID 12/26/18 03/01/19 History Zinc 50 mg PO DAILY 12/26/18 03/01/19 History HYDROcodone/APAP 5-325MG [[place] 1 tab PO Q6HR PRN 3 Days #12 tab 01/23/19 03/01/19 Rx 5-325] Ascorbic Acid [Vitamin C] 500 mg PO DAILY 01/30/19 03/01/19 History Vitamin E 100 unit PO DAILY 01/30/19 03/01/19 History guaiFENesin [Mucinex] 1,200 mg PO Q12HR #30 tablet.er 02/07/19 03/01/19 Rx Acyclovir 5% Oint [Zovirax Oint] 1 applic TOPICAL 5XD PRN 03/01/19 03/01/19 History Cefuroxime Axetil [Ceftin] 500 mg PO BID 03/01/19 03/01/19 History Cetirizine HCl [Zyrtec] 10 mg PO DAILY 03/01/19 03/01/19 History Clotrimazole 10 mg MUCOUS MEM 5XD PRN 03/01/19 03/01/19 History Fluticasone Nasal [place] [Flonase 1 spr EA NOSTRIL DAILY 03/01/19 03/01/19 History Nasal [place]] Gabapentin [Neurontin] 100 mg PO HS 03/01/19 03/01/19 History Ipratropium-Albuterol Nebulize 3 ml INHALATION RT-QID 03/01/19 03/01/19 History [Duoneb 0.5 mg-3 mg/3 ml Soln] Losartan-Hctz 50-12.5 mg [Hyzaar 1 tab PO DAILY 03/01/19 03/01/19 History 50-12.5] predniSONE See Taper PO DAILY 03/01/19 03/01/19 History Allergies Allergy/AdvReac Type Severity Reaction Status Date / Time No Known Allergies Allergy Verified 03/01/19 23:12 Physical Exam Vitals: Vital Signs Temp Pulse Pulse Pulse Resp BP BP 03/02/19 10:03 82 16 99/56 03/02/19 07:10 89 03/02/19 06:58 88 03/02/19 04:55 97.9 F 92 18 129/68 03/02/19 03:53 96 03/02/19 03:41 96 03/02/19 02:09 84 18 03/02/19 01:50 98.0 F 86 18 138/73 03/02/19 01:00 80 20 125/66 03/02/19 00:00 98.5 F 86 20 123/64 03/01/19 23:00 98.2 F 98 18 135/78 03/01/19 22:18 100 24 142/78 03/01/19 21:42 98 03/01/19 21:26 110 H 24 03/01/19 21:15 98 F 117 H 24 169/105 Pulse Ox 03/02/19 10:03 94 L 03/02/19 07:10 03/02/19 06:58 03/02/19 04:55 99 03/02/19 03:53 03/02/19 03:41 03/02/19 02:09 03/02/19 01:50 97 03/02/19 01:00 97 03/02/19 00:00 97 03/01/19 23:00 98 03/01/19 22:18 97 03/01/19 21:42 03/01/19 21:26 03/01/19 21:15 98 Intake and Output 03/01/19 03/02/19 03/02/19 22:59 06:59 14:59 Intake Total 590 Balance 590 Intake: Oral 590 Other: Voiding Method Bedside Commode # Voids 2 1 # Bowel Movements 1 Weight 62.142 kg GENERAL: The patient is alert and oriented x3, not in any acute distress. Well developed, well nourished. HEENT: Pupils are round and equally reacting to light. EOMI. No scleral icterus. No conjunctival pallor. Normocephalic, atraumatic. No pharyngeal erythema. No thyromegaly. CARDIOVASCULAR: S1 and S2 present. No murmurs, rubs, or gallops. -PULMONARY: Chest is clear to auscultation, she is cystitis, with decreased air entry on both sides and scattered wheezing bilaterally. ABDOMEN: Soft, nontender, nondistended, normoactive bowel sounds. No palpable organomegaly. MUSCULOSKELETAL: No joint swelling or deformity. EXTREMITIES: No cyanosis, clubbing, or pedal edema. NEUROLOGICAL: Gross neurological examination did not reveal any focal deficits. SKIN: No rashes. Results CBC & Chem 7: 03/01/19 21:25 03/01/19 21:25 Labs: Abnormal Lab Results - Last 24 Hours (Table) 03/01/19 03/01/19 Range/Units 21:25 21:25 RDW 15.7 H (11.5-15.5) % Neutrophils # 7.8 H (1.3-7.7) k/uL Sodium 132 L (137-145) mmol/L BUN 22 H (7-17) mg/dL Glucose 156 H (74-99) mg/dL AST 97 H (14-36) U/L ALT 121 H (9-52) U/L Alkaline Phosphatase 141 H (38-126) U/L Thrombosis Risk Factor Assmnt - Choose All That Apply Any of the Below Risk Factors Present?: Yes Each Factor Represents 1 point: Abnormal pulmonary function (COPD), Obesity (BMI >25) Other Risk Factors: No Other congenital or acquired thrombophilia - If yes, enter type in comment: No Thrombosis Risk Factor Assessment Total Risk Factor Score: 2 Thrombosis Risk Factor Assessment Level: Low Risk Assessment and Plan Assessment: Acute COPD exacerbation Essential hypertension Hyperlipidemia Plan: This is a pleasant 83 years old female who presents with acute COPD exacerbation. Continue with steroids, continue the breathing treatment, and antibiotics continue with oxygen. Check influenza.Labs and medication were reviewed.. Continue same treatment. Continue with symptomatic treatment. Resume home medication. Monitor lytes and vitals. DVT and GI prophylaxis. Further recommendations of the clinical course of the patient DVT prophylaxis: Subcutaneous heparin GI Prophylaxis: Pepcid PT/OT: Pending Prognosis is guarded
[2019-03-02] MEDS: DOXYCYCLINE 100 MG in SODIUM CHLORIDE 0.9% 100 ML IVPB SCH ×2 (11:12→20:58)
[2019-03-02] MEDS: methylPREDNISolone SOD SUCCI 125 MG/2 ML VIAL IV SCH ×3 (11:20→23:12)
[2019-03-02] MEDS ORDERED: CLOTRIMAZOLE TROCHE 10 MG TROCHE MUCOUS MEM PRN (11:27)
[2019-03-02] MEDS ORDERED: HYDROcodone/APAP 5-325MG 1 EACH TAB PO PRN (11:27)
[2019-03-02] MEDS ORDERED: valACYclovir HCL 1,000 MG TABLET PO PRN (11:45)
[2019-03-02] MEDS: ASPIRIN 81 MG PO SCH (15:13)
[2019-03-02] MEDS: SYMBICORT 160-4.5 MCG INHALER INHALATION SCH (19:12)
[2019-03-02] MEDS: guaiFENesin 600 MG TABLET.ER PO SCH (20:57)
[2019-03-02] MEDS: GABAPENTIN 100 MG CAP PO SCH (20:57)
[2019-03-02] MEDS: HEPARIN SODIUM,PORCINE 5,000 UNIT/ML 1 ML VIAL SQ SCH (20:58)
[2019-03-02] MEDS: FAMOTIDINE 20 MG/2 ML VIAL IV SCH (20:58)
[2019-03-03] MEDS: IPRATROPIUM-ALBUTEROL 3 ML NEB INHALATION PRN ×6 (03:37→23:29)
[2019-03-03] MEDS: methylPREDNISolone SOD SUCCI 125 MG/2 ML VIAL IV SCH ×4 (05:54→23:46)
[2019-03-03 07:24] LABS: Glucose,Whole Blood 135 mg/dL (75-99)
[2019-03-03] MEDS: DOXYCYCLINE 100 MG in SODIUM CHLORIDE 0.9% 100 ML IVPB SCH ×2 (08:27→21:19)
[2019-03-03] MEDS: HEPARIN SODIUM,PORCINE 5,000 UNIT/ML 1 ML VIAL SQ SCH ×2 (08:28→21:20)
[2019-03-03] MEDS: guaiFENesin 600 MG TABLET.ER PO SCH ×2 (08:28→21:19)
[2019-03-03] MEDS: ATORVASTATIN 20 MG TAB PO SCH (08:28)
[2019-03-03] MEDS: FLUTICASONE 50MCG/SPRAY NASAL 16GM EA NOSTRIL SCH (08:28)
[2019-03-03] MEDS: CHOLECALCIFEROL 1,000 UNIT TAB PO SCH (08:28)
[2019-03-03] MEDS: FAMOTIDINE 20 MG/2 ML VIAL IV SCH (08:28)
[2019-03-03] MEDS: ASPIRIN 81 MG PO SCH (08:28)
[2019-03-03] MEDS: SYMBICORT 160-4.5 MCG INHALER INHALATION SCH ×2 (09:01→19:00)
[2019-03-03 09:59] LABS: ALT 108 U/L (9-52); AST 68 U/L (14-36); Albumin 3.9 g/dL (3.5-5.0); Alkaline Phosphatase 109 U/L (38-126); Anion Gap 12 mmol/L; Blood Urea Nitrogen 23 mg/dL (7-17); Calcium 9.4 mg/dL (8.4-10.2); Carbon Dioxide 20 mmol/L (22-30); Chloride 101 mmol/L (98-107); Glucose 227 mg/dL (74-99); Potassium 4.2 mmol/L (3.5-5.1); Sodium 133 mmol/L (137-145); Total Bilirubin 0.3 mg/dL (0.2-1.3); Total Protein 6.1 g/dL (6.3-8.2)
[2019-03-03 11:30] LABS: Glucose,Whole Blood 187 mg/dL (75-99)
[2019-03-03] MEDS: INSULIN ASPART (NovoLOG) 100 UNIT/ML VIAL SQ SCH ×3 (12:10→21:20)
[2019-03-03] MEDS: CALCIUM CARBONATE 500 MG CHEWABLE PO SCH (12:10)
[2019-03-03] MEDS ORDERED: ALPRAZolam 0.25 MG TAB PO STA (12:53)
[2019-03-03 17:20] LABS: Glucose,Whole Blood 198 mg/dL (75-99)
[2019-03-03 19:55] LABS: Glucose,Whole Blood 167 mg/dL (75-99)
[2019-03-03] MEDS ORDERED: ALPRAZolam 0.25 MG TAB PO PRN (21:04)
[2019-03-03] MEDS: FAMOTIDINE 20 MG TAB PO SCH (21:19)
[2019-03-03] MEDS: GABAPENTIN 100 MG CAP PO SCH (21:19)
--- NOTE | 2019-03-03 21:20 | P.PN ---
Subjective This is a pleasant 83 years old female with past medical history of COPD, hyperlipidemia, hypertension. Patient has history of COPD and she follows up with Dr. Lewis in the outpatient setting. This time presents because of dyspnea. Last week she had sinus infection and in 2 days she developed shortness of breath so last Saturday she went to her doctor who got steroid shot, she felt fine for the next 24 hours, however her symptoms returned back yesterday and she felt shortness of breath again, chest tightness, with coughing but no phlegm although she feels secretions in her chest. She denies chest pain. No change in urine or bowel habits. No fever On the presentation patient blood pressure 169/105, she is tachycardic 117, she was saturating 97% on 5 L nasal cannula, currently she is saturating 94% on 4 L oxygen via NC. Blood pressure 99/56.s WBC is 10 K, sodium 132, creatinine 0.6, glucose 156, liver enzymes slightly elevated at 121 and 141. An 0.012. EKG: showing sinus tachycardia at 116 with qTC is 425, no significant ST-T changes. Chest x-ray: No acute process. In the emergency room patient got breathing treatment. Patient is excess smoker who quit about one year and a half ago. She denies alcohol list of drugs. 03/03/2019 pt today is slightly better, she is moving air in and out of her lung better than yesterday although there is still diminished air entery on both of her lungs. no chest pain , she is ancious and anxiolytic is provided. Na 133, creatinine is WNL. liver enz is mildly elevated and trending down , we will order acute hepatitis panel today . continue with antibiotic and steroid in high dose and parenteral today, she still need treatment inhouse . discussed with staff . also we will order physical therapy evaluation Review of [employer] what is mentioned above CONSTITUTIONAL: negative. RESPIRATORY: Negative. CARDIOVASCULAR: Negative. GASTROINTESTINAL: Negative. GENITOURINARY: Negative. INTEGUMENT/BREAST: Negative. MUSCULOSKELETAL: Negative. NEUROLOGICAL: Negative. medication: doxcyclin 100 mg , xanax 0.25 mg , solumedrol 60 mg, albuterol 0.5 mg, tylenol , asaprin 81 mg, lipitor 20 , symbicort 2 puffs, tums 500 , vitamin D 5000, pepcid 20 mg, flovent 1 spray , neurontin 100 mg, mucinex 1200 mg,heparin 5000 , novolog insulin , acyclovir 2000 mg Objective - Vital Signs Vital signs: Vital Signs Temp 98.1 F 03/03/19 20:58 Pulse 97 03/03/19 20:58 Resp 24 03/03/19 20:58 BP 137/72 03/03/19 20:58 Pulse Ox 98 03/03/19 20:58 Intake & Output 03/03/19 03/03/19 03/04/19 06:59 18:59 06:59 Intake Total 750 Balance 750 Intake: Intake, IV Titration 100 Amount Doxycycline 100 mg In 100 Sodium Chloride 0.9% 100 ml @ 100 mls/hr IVPB Q12HR [facility] Rx#:[id number] Oral 650 Other: Voiding Method Bedside Commode Bedside Commode # Voids 1 3 # Bowel Movements 1 - Exam GENERAL: The patient is alert and oriented x3, not in any acute distress. Well d eveloped, well nourished. HEENT: Pupils are round and equally reacting to light. EOMI. No scleral icterus. No conjunctival pallor. Normocephalic, atraumatic. No pharyngeal erythema. No thyromegaly. CARDIOVASCULAR: S1 and S2 present. No murmurs, rubs, or gallops. -PULMONARY: Chest is clear to auscultation, she is cystitis, with decreased air entry on both sides and scattered wheezing bilaterally. ABDOMEN: Soft, nontender, nondistended, normoactive bowel sounds. No palpable organomegaly. MUSCULOSKELETAL: No joint swelling or deformity. EXTREMITIES: No cyanosis, clubbing, or pedal edema. NEUROLOGICAL: Gross neurological examination did not reveal any focal deficits. SKIN: No rashes. - Labs CBC & Chem 7: 03/01/19 21:25 03/03/19 08:44 Labs: Abnormal Lab Results - Last 24 Hours (Table) 03/03/19 03/03/19 03/03/19 Range/Units 07:21 08:44 11:18 Sodium 133 L (137-145) mmol/L Carbon Dioxide 20 L (22-30) mmol/L BUN 23 H (7-17) mg/dL Glucose 227 H (74-99) mg/dL POC Glucose (mg/dL) 135 H 187 H (75-99) mg/dL AST 68 H (14-36) U/L ALT 108 H (9-52) U/L Total Protein 6.1 L (6.3-8.2) g/dL 03/03/19 03/03/19 Range/Units 17:18 19:54 Sodium (137-145) mmol/L Carbon Dioxide (22-30) mmol/L BUN (7-17) mg/dL Glucose (74-99) mg/dL POC Glucose (mg/dL) 198 H 167 H (75-99) mg/dL AST (14-36) U/L ALT (9-52) U/L Total Protein (6.3-8.2) g/dL Assessment and Plan Assessment: Acute COPD exacerbation Essential hypertension Hyperlipidemia Plan: This is a pleasant 83 years old female who presents with acute COPD exacerbation. Continue with steroids, continue the breathing treatment, and antibiotics continue with oxygen. Check influenza.Labs and medication were reviewed.. Continue same treatment. Continue with symptomatic treatment. Resume home medication. Monitor lytes and vitals. DVT and GI prophylaxis. Further recommendations of the clinical course of the patient DVT prophylaxis: Subcutaneous heparin GI Prophylaxis: Pepcid PT/OT: Pending Prognosis is guarded
[2019-03-04] MEDS: IPRATROPIUM-ALBUTEROL 3 ML NEB INHALATION PRN ×5 (03:50→19:42)
[2019-03-04] MEDS: methylPREDNISolone SOD SUCCI 125 MG/2 ML VIAL IV SCH ×3 (06:09→18:24)
[2019-03-04 07:07] LABS: Glucose,Whole Blood 126 mg/dL (75-99)
[2019-03-04 08:18] LABS: ALT 148 U/L (9-52); AST 81 U/L (14-36); Alkaline Phosphatase 104 U/L (38-126); Anion Gap 8 mmol/L; Blood Urea Nitrogen 26 mg/dL (7-17); Calcium 9.8 mg/dL (8.4-10.2); Carbon Dioxide 28 mmol/L (22-30); Chloride 99 mmol/L (98-107); Glucose 117 mg/dL (74-99); Potassium 4.9 mmol/L (3.5-5.1); Sodium 135 mmol/L (137-145); Total Bilirubin 0.4 mg/dL (0.2-1.3); Total Protein 6.3 g/dL (6.3-8.2)
[2019-03-04] MEDS: INSULIN ASPART (NovoLOG) 100 UNIT/ML VIAL SQ SCH ×4 (08:18→21:39)
[2019-03-04] MEDS: CHOLECALCIFEROL 1,000 UNIT TAB PO SCH (08:39)
[2019-03-04] MEDS: guaiFENesin 600 MG TABLET.ER PO SCH ×2 (08:39→21:39)
[2019-03-04] MEDS: ATORVASTATIN 20 MG TAB PO SCH (08:39)
[2019-03-04] MEDS: ASPIRIN 81 MG PO SCH (08:39)
[2019-03-04] MEDS: FAMOTIDINE 20 MG TAB PO SCH ×2 (08:39→21:39)
[2019-03-04] MEDS: HEPARIN SODIUM,PORCINE 5,000 UNIT/ML 1 ML VIAL SQ SCH ×2 (08:40→21:40)
[2019-03-04] MEDS: DOXYCYCLINE 100 MG in SODIUM CHLORIDE 0.9% 100 ML IVPB SCH ×2 (08:41→21:38)
[2019-03-04] MEDS: FLUTICASONE 50MCG/SPRAY NASAL 16GM EA NOSTRIL SCH (08:41)
[2019-03-04] MEDS: SYMBICORT 160-4.5 MCG INHALER INHALATION SCH ×2 (08:47→19:42)
--- NOTE | 2019-03-04 11:34 | CDI ---
Documentation Clarification Form Date: 03/04/2019 11:18:17 AM From: Stephanie DaveGANESH, CCDS Admit Date: 03/03/2019 8:53:00 AM Patient Name: Nadege Marcum Visit Number: [id number] Discharge Date: ATTENTION: The Clinical Documentation Specialists (CDI) and [facility] Coding Staff appreciate your assistance in clarifying documentation. Please respond to the clarification below the line at the bottom and electronically sign. The CDI & [facility] Coding staff will review the response and follow-up if needed. Please note: Queries are made part of the Legal Health Record. If you have any questions, please contact the author of this message via ITS. Dr. Chino Sheet: Per the ED note: "EMS reports upon their arrival patient was tachypneic, tachycardic with increased work of breathing, retractions, tripoding and was hypoxic. Patient received a DuoNeb treatment as well as aspirin and nitro in route to the hospital." History/Risk Factors: COPD, possible CHF, Hypertension Home Meds: Prednisone, Ipratropium-Albuterol Neb INH, Perforomist INH, Pulmicort INH, Albuterol Inhaler. Tobacco use: Former smoker. Clinical Indicators: Presented with progressive SOB despite outpatient treatment with nebulizer treatments. Vital signs: T 98, P 117^, R 24 (SOB, labored, cough), BP 169/105^, PO 98 15% nrb Treatment: NRB 15% - 5Lnc, Albuterol INH, IV Doxycycline Hyclate, IV Solumedrol, IV Pepcid. In your professional opinion, can you please clarify if these findings signify one of the following conditions? Acute Respiratory Failure o With or without hypoxia or hypercapnia Chronic Respiratory Failure o With or without hypoxia or hypercapnia Acute on Chronic Respiratory Failure o With or without hypoxia or hypercapnia Respiratory Distress Respiratory Insufficiency Other Diagnosis, please specify Unable to determine (Last Revision: January 2018) Acute Respiratory Failure MTDD
[2019-03-04 11:37] LABS: Glucose,Whole Blood 139 mg/dL (75-99)
[2019-03-04] MEDS: CALCIUM CARBONATE 500 MG CHEWABLE PO SCH (12:36)
[2019-03-04] MEDS ORDERED: ALPRAZolam 0.5 MG TAB PO PRN (12:44)
--- NOTE | 2019-03-04 12:45 | P.PN ---
Subjective This is a pleasant 83 years old female with past medical history of COPD, hyperlipidemia, hypertension. Patient has history of COPD and she follows up with Dr. Lewis in the outpatient setting. This time presents because of dyspnea. Last week she had sinus infection and in 2 days she developed shortness of breath so last Saturday she went to her doctor who got steroid shot, she felt fine for the next 24 hours, however her symptoms returned back yesterday and she felt shortness of breath again, chest tightness, with coughing but no phlegm although she feels secretions in her chest. She denies chest pain. No change in urine or bowel habits. No fever On the presentation patient blood pressure 169/105, she is tachycardic 117, she was saturating 97% on 5 L nasal cannula, currently she is saturating 94% on 4 L oxygen via NC. Blood pressure 99/56.s WBC is 10 K, sodium 132, creatinine 0.6, glucose 156, liver enzymes slightly elevated at 121 and 141. An 0.012. EKG: showing sinus tachycardia at 116 with qTC is 425, no significant ST-T changes. Chest x-ray: No acute process. In the emergency room patient got breathing treatment. Patient is excess smoker who quit about one year and a half ago. She denies alcohol list of drugs. 03/03/2019 pt today is slightly better, she is moving air in and out of her lung better than yesterday although there is still diminished air entery on both of her lungs. no chest pain , she is ancious and anxiolytic is provided. Na 133, creatinine is WNL. liver enz is mildly elevated and trending down , we will order acute hepatitis panel today . continue with antibiotic and steroid in high dose and parenteral today, she still need treatment inhouse . discussed with staff . also we will order physical therapy evaluation 03/04/2019 Patient improving gradually, she still have some dyspnea and wheezing, tightening of the chest is improving gradually, however she is not ready to be discharged. Patient looks anxious. No chest pain. No other problems in bowel or urine. Patient saturating 95% on 4 L oxygen via nasal cannula. She needed 15 L on admission. She has acute respiratory failure on admission which is improving. Continue with steroids and antibiotics and breathing treatments Objective - Vital Signs Vital signs: Vital Signs Temp 97.6 F 03/04/19 05:00 Pulse 88 03/04/19 12:33 Resp 18 03/04/19 08:36 BP 164/77 03/04/19 05:00 Pulse Ox 95 03/04/19 05:00 Intake & Output 03/03/19 03/04/19 03/04/19 18:59 06:59 18:59 Intake Total 750 1070 Balance 750 1070 Intake: Intake, IV Titration 100 100 Amount Doxycycline 100 mg In 100 100 Sodium Chloride 0.9% 100 ml @ 100 mls/hr IVPB Q12HR [facility] Rx#:[id number] Oral 650 970 Other: Voiding Method Bedside Commode Toilet Bedside Commode # Voids 3 3 # Bowel Movements 1 1 - Exam GENERAL: The patient is alert and oriented x3, not in any acute distress. Well developed, well nourished. HEENT: Pupils are round and equally reacting to light. EOMI. No scleral icterus. No conjunctival pallor. Normocephalic, atraumatic. No pharyngeal erythema. No thyromegaly. CARDIOVASCULAR: S1 and S2 present. No murmurs, rubs, or gallops. -PULMONARY: Chest is clear to auscultation, she is cystitis, with decreased air entry on both sides and scattered wheezing bilaterally. ABDOMEN: Soft, nontender, nondistended, normoactive bowel sounds. No palpable organomegaly. MUSCULOSKELETAL: No joint swelling or deformity. EXTREMITIES: No cyanosis, clubbing, or pedal edema. NEUROLOGICAL: Gross neurological examination did not reveal any focal deficits. SKIN: No rashes. - Labs CBC & Chem 7: 03/01/19 21:25 03/04/19 06:39 Labs: Abnormal Lab Results - Last 24 Hours (Table) 03/03/19 03/03/19 03/04/19 Range/Units 17:18 19:54 06:39 Sodium 135 L (137-145) mmol/L BUN 26 H (7-17) mg/dL Glucose 117 H (74-99) mg/dL POC Glucose (mg/dL) 198 H 167 H (75-99) mg/dL AST 81 H (14-36) U/L ALT 148 H (9-52) U/L 03/04/19 03/04/19 Range/Units 07:05 11:35 Sodium (137-145) mmol/L BUN (7-17) mg/dL Glucose (74-99) mg/dL POC Glucose (mg/dL) 126 H 139 H (75-99) mg/dL AST (14-36) U/L ALT (9-52) U/L Assessment and Plan Assessment: Acute COPD exacerbation Acute hypoxic respiratory failure, present on admission. Improving Essential hypertension Hyperlipidemia Plan: This is a pleasant 83 years old female who presents with acute COPD exacerbation. Continue with steroids, continue the breathing treatment, and antibiotics continue with oxygen. Check influenza.Labs and medication were reviewed.. Continue same treatment. Continue with symptomatic treatment. Resume home medication. Monitor lytes and vitals. DVT and GI prophylaxis. Further recommendations of the clinical course of the patient DVT prophylaxis: Subcutaneous heparin GI Prophylaxis: Pepcid PT/OT: Pending Prognosis is guarded Dr. Zavala will resume the care of the patient tomorrow
[2019-03-04 17:16] LABS: Glucose,Whole Blood 165 mg/dL (75-99)
[2019-03-04 19:58] LABS: Glucose,Whole Blood 180 mg/dL (75-99)
[2019-03-04] MEDS ORDERED: LORATADINE 10 MG TAB PO STA (20:50)
[2019-03-04] MEDS: GABAPENTIN 100 MG CAP PO SCH (21:39)
--- NOTE | 2019-03-04 22:35 | XR ---
EXAMINATION: XR chest 1V DATE AND TIME: 03/04/2019 9:18 PM CLINICAL INDICATION: PHH; follow up TECHNIQUE: AP upright portable COMPARISON: 03/01/2019 9:28 PM FINDINGS: The lungs are clear. The pleural spaces are negative. The cardiac silhouette is mild moderately enlarged. The remainder of the mediastinal silhouette is unremarkable. The skeletal structures and soft tissues are negative for acute findings. IMPRESSION: No acute processes.
[2019-03-05] MEDS: methylPREDNISolone SOD SUCCI 125 MG/2 ML VIAL IV SCH ×2 (00:12→06:18)
[2019-03-05] MEDS: IPRATROPIUM-ALBUTEROL 3 ML NEB INHALATION PRN ×6 (00:27→21:29)
[2019-03-05 06:59] LABS: Glucose,Whole Blood 117 mg/dL (75-99)
[2019-03-05] MEDS: CHOLECALCIFEROL 1,000 UNIT TAB PO SCH (07:34)
[2019-03-05] MEDS: ASPIRIN 81 MG PO SCH (07:35)
[2019-03-05] MEDS: guaiFENesin 600 MG TABLET.ER PO SCH ×2 (07:35→22:24)
[2019-03-05] MEDS: FAMOTIDINE 20 MG TAB PO SCH ×2 (07:35→22:25)
[2019-03-05] MEDS: ATORVASTATIN 20 MG TAB PO SCH (07:35)
[2019-03-05] MEDS: FLUTICASONE 50MCG/SPRAY NASAL 16GM EA NOSTRIL SCH (07:36)
[2019-03-05] MEDS: DOXYCYCLINE 100 MG in SODIUM CHLORIDE 0.9% 100 ML IVPB SCH ×2 (07:43→22:12)
[2019-03-05] MEDS: INSULIN ASPART (NovoLOG) 100 UNIT/ML VIAL SQ SCH ×4 (07:59→22:25)
[2019-03-05] MEDS: HEPARIN SODIUM,PORCINE 5,000 UNIT/ML 1 ML VIAL SQ SCH ×2 (07:59→22:26)
[2019-03-05] MEDS: SYMBICORT 160-4.5 MCG INHALER INHALATION SCH (08:34)
[2019-03-05 10:18] LABS: ALT 177 U/L (9-52); AST 74 U/L (14-36); Alkaline Phosphatase 108 U/L (38-126); Anion Gap 11 mmol/L; Blood Urea Nitrogen 28 mg/dL (7-17); Calcium 9.6 mg/dL (8.4-10.2); Carbon Dioxide 25 mmol/L (22-30); Chloride 98 mmol/L (98-107); Glucose 183 mg/dL (74-99); Potassium 4.3 mmol/L (3.5-5.1); Sodium 134 mmol/L (137-145); Total Bilirubin 0.4 mg/dL (0.2-1.3); Total Protein 6.2 g/dL (6.3-8.2)
[2019-03-05] MEDS ORDERED: FLUCONAZOLE 100 MG TAB PO ONE (10:30)
[2019-03-05 11:07] LABS: Glucose,Whole Blood 165 mg/dL (75-99)
--- NOTE | 2019-03-05 11:27 | P.CNPUL ---
History of Present Illness Consult date: 03/05/19 Requesting physician: Franco Zavala Reason for consult: dyspnea Chief complaint: Shortness of breath, cough, sinus congestion History of present illness: This is a very pleasant 83-year-old female patient who follows with Dr. Saab as her primary care physician. She has a history of hypertension, hyperlipidemia, previous smoking history. She follows with Dr. Lewis in our office for COPD. FEV1 value 50% of predicted. She is maintained on Pulmicort and Perforomist inhalations along with DuoNeb inhalations and home oxygen at 4 L/m per nasal cannula. She also has issues with chronic rhinitis secondary to seasonal ALLERGIES. She states she had recently been outside in the yard and developed significant sinus congestion with slight increasing shortness of breath cough and congestion and she was admitted here on the 26 for the same. Chest x-ray reveals no acute pulmonary process. She is seen today in consultation on the regular medical floor. She is awake and alert in no acute distress. Currently maintaining O2 saturations up to 100% on 4 L/m per nasal cannula. She's been afebrile. Initial white count 10.0. Hemoglobin 10.6. Sodium 134. Potassium 4.3. Creatinine 0.72. Bicarb 25. She has been initiated on DuoNeb inhalations, Pulmicort and Perforomist inhalations, IV Solu- Medrol, empiric antibiotics in the form of doxycycline. She is also on Mucinex and Claritin. She is improved today compared to yesterday. Hoping to go home in the a.m. Review of Systems Constitutional: Denies chills, Denies fever Eyes: denies blurred vision, denies decreased vision Ears: deny: decreased hearing Ears, nose, mouth and throat: Reports nasal congestion, Reports post-nasal drip, Reports sinus pressure Cardiovascular: Denies chest pain, Denies shortness of breath Respiratory: Reports congestion, Reports cough, Reports dyspnea Gastrointestinal: Denies abdominal pain, Denies diarrhea, Denies nausea, Denies vomiting Genitourinary: Denies dysuria, Denies hematuria Musculoskeletal: Denies myalgias Integumentary: Denies pruritus, Denies rash Neurological: Denies numbness, Denies weakness Psychiatric: Denies anxiety, Denies depression Endocrine: Denies fatigue, Denies weight change Hematologic/Lymphatic: Reports as per HPI Allergic/Immunologic: Reports as per HPI Past Medical History Past Medical History: COPD, Hyperlipidemia, Hypertension Additional Past Medical History / Comment(s): Recent sinus infection, PMH indicates CHF but pt does not recall this. History of Any Multi-Drug Resistant Organisms: None Reported Past Surgical History: Tubal Ligation Additional Past Surgical History / Comment(s): Bilateral cataract removals with lens. Past Anesthesia/Blood Transfusion Reactions: No Reported Reaction Past Psychological History: No Psychological Hx Reported Additional Psychological History / Comment(s): Pt resides with her spouse of 58 yrs. She retired one year ago from [employer] work. She is independent. Smoking Status: Former smoker Past Alcohol Use History: Rare Additional Past Alcohol Use History / Comment(s): Pt started smoking in 1954. She has not felt well enough to smoke for 1 week and plans now be a nonsmoker. Past Drug Use History: None Reported - Past Family History Father Family Medical History: Congestive Heart Failure (CHF) Additional Family Medical History / Comment(s): Father of CHF at the age of 70yrs. Mother Family Medical History: Cancer Additional Family Medical History / Comment(s): Mother had breast cancer and gastric ulcers. Medications and Allergies Home Medications Medication Instructions Recorded Confirmed Type Albuterol Inhaler [Ventolin Hfa 2 puff INHALATION RT-QID PRN 05/17/17 03/01/19 History Inhaler] Simvastatin 40 mg PO DAILY 05/17/17 03/01/19 History Aspirin [Children's Aspirin] 81 mg PO DAILY 08/02/17 03/01/19 History Cholecalciferol [Vitamin D3 (25 5,000 unit PO DAILY 08/02/17 03/01/19 History Mcg = 1000 Iu)] Vit C/E/Zn/Coppr/Lutein/Zeaxan 1 cap PO DAILY 08/02/17 03/01/19 History [Preservision Areds 2 Softgel] Budesonide [Pulmicort] 0.5 mg INHALATION RT-BID 09/15/18 03/01/19 History Calcium Carbonate 500 mg PO DAILY 12/26/18 03/01/19 History Formoterol Fumarate [Perforomist] 20 mcg INHALATION RT-BID 12/26/18 03/01/19 History Zinc 50 mg PO DAILY 12/26/18 03/01/19 History HYDROcodone/APAP 5-325MG [[place] 1 tab PO Q6HR PRN 3 Days #12 tab 01/23/19 Rx 5-325] Ascorbic Acid [Vitamin C] 500 mg PO DAILY 01/30/19 03/01/19 History Vitamin E 100 unit PO DAILY 01/30/19 03/01/19 History guaiFENesin [Mucinex] 1,200 mg PO Q12HR #30 tablet.er 02/07/19 03/01/19 Rx Acyclovir 5% Oint [Zovirax Oint] 1 applic TOPICAL 5XD PRN 03/01/19 03/01/19 H istory Cefuroxime Axetil [Ceftin] 500 mg PO BID 03/01/19 03/01/19 History Cetirizine HCl [Zyrtec] 10 mg PO DAILY 03/01/19 03/01/19 History Clotrimazole 10 mg MUCOUS MEM 5XD PRN 03/01/19 03/01/19 History Fluticasone Nasal [place] [Flonase 1 spr EA NOSTRIL DAILY 03/01/19 03/01/19 History Nasal [place]] Gabapentin [Neurontin] 100 mg PO HS 03/01/19 03/01/19 History Ipratropium-Albuterol Nebulize 3 ml INHALATION RT-QID 03/01/19 03/01/19 History [Duoneb 0.5 mg-3 mg/3 ml Soln] Losartan-Hctz 50-12.5 mg [Hyzaar 1 tab PO DAILY 03/01/19 03/01/19 History 50-12.5] predniSONE See Taper PO DAILY 03/01/19 03/01/19 History Allergies Allergy/AdvReac Type Severity Reaction Status Date / Time No Known Allergies Allergy Verified 03/01/19 23:12 Physical Exam Vitals: Vital Signs Temp Pulse Pulse Pulse Resp BP Pulse Ox 03/05/19 09:07 92 03/05/19 08:36 96 03/05/19 04:45 98.1 F 98 18 161/54 100 03/05/19 04:09 96 03/05/19 00:45 97 03/05/19 00:28 97 03/04/19 20:36 97.5 F L 116 H 20 166/60 96 03/04/19 19:56 110 H 03/04/19 19:44 108 H 03/04/19 17:39 19 03/04/19 15:45 92 03/04/19 15:33 90 03/04/19 12:33 88 03/04/19 12:16 88 03/04/19 11:50 97.9 F 102 H 22 144/77 97 Intake and Output 03/04/19 03/05/19 03/05/19 22:59 06:59 14:59 Other: Voiding Method Bedside Commode Bedside Commode # Voids 1 1 # Bowel Movements 1 1 - Constitutional General appearance: average body habitus, no acute distress - EENT Eyes: PERRLA ENT: hearing grossly normal, thrush Ears: bilateral: normal - Neck Neck: normal ROM Carotids: bilateral: upstroke normal Thyroid: bilateral: normal size - Respiratory Respiratory: bilateral: CTA, diminished - Cardiovascular Rhythm: regular Heart sounds: normal: S1, S2 - Gastrointestinal General gastrointestinal: normal bowel sounds - Integumentary Integumentary: normal turgor - Neurologic Neurologic: CNII-XII intact - Musculoskeletal Musculoskeletal: gait normal - Psychiatric Psychiatric: A&O x's 3, appropriate affect, intact judgment & insight Results - Laboratory Findings CBC and BMP: 03/01/19 21:25 03/05/19 09:08 PT/INR, D-dimer PT 9.8 sec (9.0-12.0) 03/01/19 21:25 INR 0.9 (<1.2) 03/01/19 21:25 Abnormal lab findings: Abnormal Labs 03/01/19 03/01/19 03/03/19 21:25 21:25 07:21 RDW 15.7 H Neutrophils # 7.8 H Sodium 132 L Carbon Dioxide BUN 22 H Glucose 156 H POC Glucose (mg/dL) 135 H AST 97 H ALT 121 H Alkaline Phosphatase 141 H Total Protein 03/03/19 03/03/19 03/03/19 08:44 11:18 17:18 RDW Neutrophils # Sodium 133 L Carbon Dioxide 20 L BUN 23 H Glucose 227 H POC Glucose (mg/dL) 187 H 198 H AST 68 H ALT 108 H Alkaline Phosphatase Total Protein 6.1 L 03/03/19 03/04/19 03/04/19 19:54 06:39 07:05 RDW Neutrophils # Sodium 135 L Carbon Dioxide BUN 26 H Glucose 117 H POC Glucose (mg/dL) 167 H 126 H AST 81 H ALT 148 H Alkaline Phosphatase Total Protein 03/04/19 03/04/19 03/04/19 11:35 17:14 19:56 RDW Neutrophils # Sodium Carbon Dioxide BUN Glucose POC Glucose (mg/dL) 139 H 165 H 180 H AST ALT Alkaline Phosphatase Total Protein 03/05/19 03/05/19 03/05/19 06:58 09:08 11:05 RDW Neutrophils # Sodium 134 L Carbon Dioxide BUN 28 H Glucose 183 H POC Glucose (mg/dL) 117 H 165 H AST 74 H ALT 177 H Alkaline Phosphatase Total Protein 6.2 L - Diagnostic Findings Chest x-ray: image reviewed (No acute pulmonary process) Assessment and Plan Assessment: Impression: #1 Acute exacerbation of chronic obstructive pulmonary disease, complicated by ALLERGIC seasonal rhinitis. #2 ALLERGIC seasonal rhinitis, acute on chronic. #3 Hypertension. #4 Hyperlipidemia. Plan: The patient was seen and evaluated by Dr. Andrews. Chest x-ray and labs were reviewed. We'll continue with the current treatment plan for now. She is improving. Probable discharge in the a.m. Follow-up in our office with Dr. Lewis in 1-2 weeks' time. We will continue to follow make further recommendations based on her clinical status. I, the cosigning physician, performed a history & physical examination of the patient. Lungs sounds are clear diminished. Maintaining good O2 saturations in the 90s on 4 L/m per nasal cannula. I discussed the assessment and plan of care with my nurse practitioner, Leatha Ram. I attest to the above note as dictated by her. Time with Patient: Greater than 30
[2019-03-05] MEDS: BUDESONIDE 1 MG/2 ML NEBU INHALATION SCH ×2 (11:44→21:29)
[2019-03-05] MEDS: LORATADINE-PSEUDOEPH 5-120 MG 1 EACH TAB.ER.12H PO SCH ×2 (11:56→22:24)
[2019-03-05] MEDS: CALCIUM CARBONATE 500 MG CHEWABLE PO SCH (11:57)
[2019-03-05] MEDS: methylPREDNISolone SOD SUCCI 40 MG/ML 1 ML VIAL IV SCH ×2 (16:35→23:42)
[2019-03-05 16:56] LABS: Glucose,Whole Blood 110 mg/dL (75-99)
[2019-03-05 20:30] LABS: Glucose,Whole Blood 186 mg/dL (75-99)
[2019-03-05] MEDS: FORMOTEROL FUMARATE 20 MCG/2 ML NEBU INHALATION SCH (21:29)
[2019-03-05] MEDS: GABAPENTIN 100 MG CAP PO SCH (22:24)
--- NOTE | 2019-03-05 23:17 | PN ---
PROGRESS NOTE DATE OF SERVICE: 03/05/2019 PRESENTING COMPLAINT: Short of breath. INTERVAL HISTORY: This patient was admitted with COPD exacerbation. Does get easily anxious, feeling very stuffy in the nose, discomfort in the throat. Sitting up. Did tolerate some diet. REVIEW OF SYSTEMS: Done for constitutional, cardiovascular, GI, pulmonary; relevant findings as above. CURRENT MEDICATIONS: Reviewed. They include bronchodilators and IV steroids. PHYSICAL EXAMINATION: Afebrile. Pulse 102, respiration 22, blood pressure 169/79, pulse ox 98% on 4 L. GENERAL APPEARANCE: Sitting up. A bit anxious-appearing. EYES: Pupils equal. Conjunctivae normal. HEENT: Nasal cannula in place. RESPIRATORY: Effort increased. LUNGS: Improved air entry. CARDIOVASCULAR: First and second sounds normal. No edema. ABDOMEN: Soft, nontender. Liver and spleen not palpable. PSYCHIATRY: Alert and oriented x3. Mood and affect anxious-appearing. Oral cavity is showing several white patches in the pharynx. INVESTIGATIONS: Potassium 4.3, BUN 28, creatinine 0.72. ASSESSMENT: 1. Acute severe chronic obstructive pulmonary disease exacerbation in an ex-smoker. 2. Acute oropharyngeal candidiasis. 3. Primary osteoarthritis. 4. Hyperlipidemia. 5. Essential hypertension. 6. Acute hypoxic respiratory failure, present on admission. PLAN: Will start the patient on Claritin-D twice a day. Will also give the patient Diflucan 200 mg doses: a dose today and 100 from tomorrow. Will cut back on Solu-Medrol. Told the patient to gargle mouth. Will adjust the bronchodilators. Expect patient to turn around further in 24 hours. Hopefully can also be discharged. Also, for her anxiety I told her to use non-medication methods, including mindfulness, etc. I had a very lengthy talk with the patient today on several aspects of her care, including the nurse. About 45 minutes was spent, with over 25 to 30 minutes of discussion. MMODL / IJN: [id number] /
[2019-03-06] MEDS: IPRATROPIUM-ALBUTEROL 3 ML NEB INHALATION PRN ×4 (00:35→11:55)
[2019-03-06 07:04] LABS: Glucose,Whole Blood 141 mg/dL (75-99)
[2019-03-06] MEDS: methylPREDNISolone SOD SUCCI 40 MG/ML 1 ML VIAL IV SCH (08:08)
[2019-03-06] MEDS: ATORVASTATIN 20 MG TAB PO SCH (08:08)
[2019-03-06] MEDS: CHOLECALCIFEROL 1,000 UNIT TAB PO SCH (08:08)
[2019-03-06] MEDS: LORATADINE-PSEUDOEPH 5-120 MG 1 EACH TAB.ER.12H PO SCH (08:08)
[2019-03-06] MEDS: guaiFENesin 600 MG TABLET.ER PO SCH (08:08)
[2019-03-06] MEDS: FAMOTIDINE 20 MG TAB PO SCH (08:08)
[2019-03-06] MEDS: INSULIN ASPART (NovoLOG) 100 UNIT/ML VIAL SQ SCH ×2 (08:08→12:54)
[2019-03-06] MEDS: ASPIRIN 81 MG PO SCH (08:08)
[2019-03-06] MEDS: DOXYCYCLINE 100 MG in SODIUM CHLORIDE 0.9% 100 ML IVPB SCH (08:09)
[2019-03-06] MEDS: HEPARIN SODIUM,PORCINE 5,000 UNIT/ML 1 ML VIAL SQ SCH (08:09)
[2019-03-06] MEDS: FLUTICASONE 50MCG/SPRAY NASAL 16GM EA NOSTRIL SCH (08:09)
[2019-03-06] MEDS: BUDESONIDE 1 MG/2 ML NEBU INHALATION SCH (08:24)
[2019-03-06] MEDS: FORMOTEROL FUMARATE 20 MCG/2 ML NEBU INHALATION SCH (08:24)
[2019-03-06] MEDS ORDERED: FLUCONAZOLE 100 MG TAB PO SCH (09:00)
[2019-03-06 12:19] LABS: Glucose,Whole Blood 133 mg/dL (75-99)
[2019-03-06 12:31] VITALS: BP 146/80; PULSE 94; RESP 17; TEMP 97.4
[2019-03-06] MEDS: CALCIUM CARBONATE 500 MG CHEWABLE PO SCH (12:54)
--- NOTE | 2019-03-06 13:47 | P.PN ---
Subjective Progress Note Date: 03/06/19 Principal diagnosis: This is a very pleasant 83-year-old female patient who follows with Dr. Saab as her primary care physician. She has a history of hypertension, hyperlipidem ia, previous smoking history. She follows with Dr. Lewis in our office for COPD. FEV1 value 50% of predicted. She is maintained on Pulmicort and Perforomist inhalations along with DuoNeb inhalations and home oxygen at 4 L/m per nasal cannula. She also has issues with chronic rhinitis secondary to seasonal ALLERGIES. She states she had recently been outside in the yard and developed significant sinus congestion with slight increasing shortness of breath cough and congestion and she was admitted here on the for the same. Chest x-ray reveals no acute pulmonary process. She is seen today in consultation on the regular medical floor. She is awake and alert in no acute distress. Currently maintaining O2 saturations up to 100% on 4 L/m per nasal cannula. She's been afebrile. Initial white count 10.0. Hemoglobin 10.6. Sodium 134. Potassium 4.3. Creatinine 0.72. Bicarb 25. She has been initiated on DuoNeb inhalations, Pulmicort and Perforomist inhalations, IV Solu-Medrol, empiric antibiotics in the form of doxycycline. She is also on Mucinex and Claritin. She is improved today compared to yesterday. Hoping to go home in the a.m. The patient is seen today 03/06/2019 in follow-up on the regular medical floor. Currently sitting up at the bedside. Awake and alert in no acute distress. She is breathing quite a bit easier today since her arrival. Her sinuses have cleared up as well. She is maintaining good O2 saturations in the upper 90s on 4 L/m per nasal cannula. She's afebrile. Hemodynamically stable. Objective - Vital Signs Vital signs: Vital Signs Temp 97.4 F L 03/06/19 12:31 Pulse 94 03/06/19 12:31 Resp 17 03/06/19 12:31 BP 146/80 03/06/19 12:31 Pulse Ox 98 03/06/19 12:31 Intake & Output 03/05/19 03/06/19 03/06/19 18:59 06:59 18:59 Intake Total 500 690 Balance 500 690 Intake: Intake, IV Titration 100 Amount Doxycycline 100 mg In 100 Sodium Chloride 0.9% 100 ml @ 100 mls/hr IVPB Q12HR [facility] Rx#:[id number] Oral 500 590 Other: Voiding Method Toilet Toilet Toilet Bedside Commode Bedside Commode Bedside Commode # Voids 2 2 - Exam GENERAL EXAM: Alert, active, comfortable in no apparent distress. On 4 L nasal cannula. HEAD: Normocephalic. EYES: Normal reaction of pupils, equal size. NOSE: Clear with pink turbinates. THROAT: No erythema or exudates. NECK: No masses, no JVD. CHEST: No chest wall deformity. LUNGS: Equal air entry with no crackles, wheeze, rhonchi or dullness. Diminished. CVS: S1 and S2 normal with no audible murmur, regular rhythm. ABDOMEN: No hepatosplenomegaly, normal bowel sounds, no guarding or rigidity. SPINE: No scoliosis or deformity SKIN: No rashes CENTRAL NERVOUS SYSTEM: No focal deficits, tone is normal in all 4 extremities. EXTREMITIES: There is no peripheral edema. No clubbing, no cyanosis. Periphe ral pulses are intact. - Labs CBC & Chem 7: 03/01/19 21:25 03/05/19 09:08 Labs: Abnormal Lab Results - Last 24 Hours (Table) 03/05/19 03/05/19 03/06/19 Range/Units 16:55 20:27 07:03 POC Glucose (mg/dL) 110 H 186 H 141 H (75-99) mg/dL 03/06/19 Range/Units 11:51 POC Glucose (mg/dL) 133 H (75-99) mg/dL Assessment and Plan Assessment: Impression: #1 Acute exacerbation of chronic obstructive pulmonary disease, complicated by ALLERGIC seasonal rhinitis. #2 ALLERGIC seasonal rhinitis, acute on chronic. #3 Hypertension. #4 Hyperlipidemia. Plan: The patient was seen and evaluated by Dr. Andrews. She is cleared for discharge from the pulmonary standpoint. Complete course of antibiotics. Complete a prednisone taper. Follow-up in our office with Dr. Lewis in 1-2 weeks' time. She is encouraged to call sooner with any recurrence of symptoms or other questions or concerns. I, the cosigning physician, performed a history & physical examination of the patient. Lungs sounds are clear diminished. Maintaining good O2 saturations in the 90s on 4 L/m per nasal cannula. I discussed the assessment and plan of care with my nurse practitioner, Leatha Ram. I attest to the above note as dictated by her.
[2019-03-06 20:47] LABS: Hepatitis A Antibody IgM Non-Reactive (Non-Reactive); Hepatitis B Core IgM Non-Reactive (Non-Reactive)
--- NOTE | 2019-03-07 03:21 | DS ---
DISCHARGE SUMMARY DATE OF ADMISSION: 03/03/2019 DATE OF DISCHARGE: 03/06/2019. FINAL DIAGNOSES: 1. Acute severe chronic obstructive pulmonary disease exacerbation in an ex-smoker. 2. Acute oropharyngeal candidiasis. 3. Primary osteoarthritis. 4. Hyperlipidemia. 5. Essential hypertension. 6. Acute hypoxic respiratory failure present on admission. HOSPITAL COURSE: This patient was a heavy ex-smoker presented with severe COPD exacerbation, responded well to bronchodilators, steroids, and also to Diflucan. Also required Claritin-D for nasal congestion. Doing much better today. Seen by Dr. Andrews. Care was discussed in detail with the patient. Questions were answered. PHYSICAL EXAMINATION: Temperature 97.4, pulse 94, respiration 17, blood pressure 126/80. Lungs improved air entry. INVESTIGATIONS: Potassium 4.3. CONSULTATION: Dr. Andrews from Pulmonary. DISCHARGE MEDICATIONS: 1. Ventolin HFA 2 puffs q.i.d. p.r.n. 2. Simvastatin 40 mg p.o. daily. 3. Aspirin 81 mg p.o. daily. 4. Vitamin D3 5000 units p.o. daily. 5. PreserVision Areds 1 capsule p.o. daily. 6. Pulmicort 0.5 inhalation b.i.d. 7. Calcium carbonate 500 mg p.o. daily. 8. Perforomist 30 mcg b.i.d. 9. Zinc 50 mg p.o. daily. 10.[place] 5 one tablet q.6h p.r.n. 11.Vitamin C 500 mg p.o. daily. 12.Vitamin E 100 units p.o. daily. 13.Mucinex 1200 mg p.o. q.12. 14.Zovirax application topical 5 times a day p.r.n. 15.Neurontin 100 mg q.h.s. 16.DuoNeb q.i.d. 17.Hyzaar 50/12.5 one tab p.o. daily. 18.Prednisone taper. 19.Doxycycline 100 mg b.i.d. for 3 days. 20.Diflucan 100 mg p.o. daily for 7 days. 21.Claritin-D 1 tablet p.o. q.12h 10 tablets. 22.Prednisone taper. FOLLOWUP: Follow up with Dr. Saab on 03/10/2019. Follow up with Dr. Lewis on March 23, 2019. Discussion and discharge planning more than [address] Saab. MMODL / IJN: [id number] /
== END 2019-03-06 17:10 | disposition home or self-care (01) | DRG 190 ==
LOC: EC 21:12 → 3NMEDONC 03-02 00:33 → OBSVTOIN 03-03 08:53
PROVIDERS: ADMIT Hospitalist; ATTEND Hospitalist
DX: J44.1 Chronic obstructive pulmonary disease with (acute) exacerbation (principal); J96.01 Acute respiratory failure with hypoxia; B37.0 Candidal stomatitis; E78.5 Hyperlipidemia, unspecified; I11.0 Hypertensive heart disease with heart failure; I50.9 Heart failure, unspecified; J30.2 Other seasonal allergic rhinitis; M19.91 Primary osteoarthritis, unspecified site; Z79.82 Long term (current) use of aspirin; Z79.51 Long term (current) use of inhaled steroids; Z79.899 Other long term (current) drug therapy; Z87.891 Personal history of nicotine dependence; Z98.51 Tubal ligation status; Z98.42 Cataract extraction status, left eye; Z98.41 Cataract extraction status, right eye; Z96.1 Presence of intraocular lens; Z80.3 Family history of malignant neoplasm of breast; Z83.79 Family history of other diseases of the digestive system; Z82.49 Family history of ischemic heart disease and other diseases of the circulatory system
CPT/HCPCS: 36415; 71045; 80053; 80074; 83735; 83880; 84484; 85025; 85610; 85730; 87502; 93005; 94640; 94760; 99285

== ENCOUNTER 2019-06-20 20:07 | Emergency (ER) | payer BC, MEDICARE ==
--- NOTE | 2019-06-20 21:23 | ED ---
SOB HPI - General Chief Complaint: Shortness of Breath Stated Complaint: JUDY Time Seen by Provider: 06/20/19 21:21 Source: patient Mode of arrival: wheelchair Limitations: no limitations - History of Present Illness Initial Comments: Nadege is a pleasant 83 yo female who presents to the ER today for evaluation of possibly worsening shortness of breath for 1 week duration. Patient reports she does have a history of COPD, she still isn't every day smoker, she reports feeling like she is wheezing more often than usual and is getting more fatigued. Patient reports she had some chills but no fever. She reports a cough that is nonproductive. She has no cardiac history history of heart failure. Patient states she's been using her breathing treatments 2-4 times a day with temporary relief of her symptoms. - Related Data Home Medications Medication Instructions Recorded Confirmed Acyclovir 5% Oint [Zovirax Oint] 1 applic TOPICAL 5XD PRN 06/20/19 06/20/19 Albuterol Inhaler [Ventolin Hfa 2 puff INHALATION RT-QID PRN 06/20/19 06/20/19 Inhaler] Ascorbic Acid [Vitamin C] 500 mg PO DAILY 06/20/19 06/20/19 Aspirin EC [Ecotrin Low Dose] 81 mg PO DAILY 06/20/19 06/20/19 Budesonide [Pulmicort] 0.5 mg INHALATION RT-BID 06/20/19 06/20/19 Calcium Carbonate [Tums] 500 mg PO DAILY 06/20/19 06/20/19 Cholecalciferol [Vitamin D3 (25 5,000 unit PO DAILY 06/20/19 06/20/19 Mcg = 1000 Iu)] Clotrimazole Heriberto [Mycelex 10 mg MUCOUS MEM 5XD PRN 06/20/19 06/20/19 Heriberto] Fluticasone Nasal Egnar [Flonase 1 - 2 spray EA NOSTRIL DAILY 06/20/19 06/20/19 Nasal Egnar] Formoterol Fumarate [Perforomist] 20 mcg INHALATION RT-BID 06/20/19 06/20/19 Furosemide [Lasix] 20 mg PO Q48H 06/20/19 06/20/19 Furosemide [Lasix] 40 mg PO Q48H 06/20/19 06/20/19 Gabapentin [Neurontin] 100 mg PO HS 06/20/19 06/20/19 HYDROcodone/APAP 5-325MG [[place] 1 tab PO Q6H PRN 06/20/19 06/20/19 5-325] Ibuprofen [Motrin] 600 mg PO Q6H PRN 06/20/19 06/20/19 Ipratropium-Albuterol Nebulize 3 ml INHALATION RT-QID 06/20/19 06/20/19 [Duoneb 0.5 mg-3 mg/3 ml Soln] L.acidoph,Paracasei, B.lactis 1 cap PO DAILY 06/20/19 06/20/19 [Probiotic] Lisinopril-Hctz 10-12.5 mg 1 tab PO DAILY 06/20/19 06/20/19 [Zestoretic 10-12.5] Loratadine-Pseudoeph 5-120 mg 1 tab PO BID 06/20/19 06/20/19 [Claritin-D 12 HR] Potassium Chloride ER [K-Dur 10] 10 meq PO DAILY 06/20/19 06/20/19 Ranitidine HCl [Zantac] 150 mg PO HS 06/20/19 06/20/19 Simvastatin 40 mg PO DAILY 06/20/19 06/20/19 Vit C/E/Zn/Coppr/Lutein/Zeaxan 1 cap PO DAILY 06/20/19 06/20/19 [Preservision Areds 2 Softgel] Vitamin E 100 unit PO DAILY 06/20/19 06/20/19 Zinc 50 mg PO DAILY 06/20/19 06/20/19 guaiFENesin [Mucinex] 1,200 mg PO BID 06/20/19 06/20/19 Previous Rx's Medication Instructions Recorded predniSONE [Deltasone] 40 mg PO DAILY 5 Days #10 tablet 06/20/19 Allergies Allergy/AdvReac Type Severity Reaction Status Date / Time No Known Allergies Allergy Unverified 06/20/19 21:24 Review of Systems ROS Statement: Those systems with pertinent positive or pertinent negative responses have been documented in the HPI. ROS Other: All systems not noted in ROS Statement are negative. Past Medical History Past Medical History: COPD, Hypertension History of Any Multi-Drug Resistant Organisms: None Reported Past Surgical History: Tubal Ligation Additional Past Surgical History / Comment(s): cataracts Past Psychological History: No Psychological Hx Reported Smoking Status: Former smoker Past Alcohol Use History: None Reported Past Drug Use History: None Reported General Exam - General Exam Comments Initial Comments: Physical Exam GENERAL: Patient is well-developed and well-nourished. Patient is nontoxic and well- hydrated and is in no distress. HENT: Normocephalic, Atraumatic. EYES: PERRL, EOMI PULMONARY: Expiratory wheezing Nonproductive cough CARDIOVASCULAR: There is a regular rate and rhythm without any murmurs gallops or rubs. 1+ pitting edema bilateral lower extremities ABDOMEN: Soft and nontender with normal bowel sounds. SKIN: Skin is clear with no lesions or rashes and otherwise unremarkable. : Deferred NEUROLOGIC: Patient is alert and oriented x3. Moving all extremities spontaneously MUSCULOSKELETAL: Normal extremities with adequate strength and full range of motion. No lower extremity swelling or edema. No calf tenderness. PSYCHIATRIC: Normal psychiatric evaluation. Limitations: no limitations Course Vital Signs 06/20/19 06/20/19 06/20/19 20:39 22:07 22:15 Temperature 98.3 F Pulse Rate 99 94 90 Respiratory 24 22 Rate Blood Pressure 133/82 108/72 O2 Sat by Pulse 91 L 94 L Oximetry 06/20/19 06/20/19 22:37 23:43 Temperature 98.6 F Pulse Rate 90 96 Respiratory 22 Rate Blood Pressure 107/60 O2 Sat by Pulse 96 Oximetry Medical Decision Making - Medical Decision Making Patient was seen and evaluated, history is obtained from the patient upon arrival Upon arrival patient stating that her COPD is acting up and she needs steroids. Initially patient tried decline valuation but then was agreeable. Labs and imaging were obtained An EKG was obtained due to complaint of shortness of breath, EKG was obtained at 2053, rate is 96 rhythm sinus is normal axis there are normal intervals, [place] 124, curious Lasix, QTC is [address] elevations or depressions no evidence of acute ischemia or infarction. Labs with no acute abnormalities requiring intervention X-ray with COPD changes no signs of pneumonia or heart failure Patient feeling better after breathing treatment comfortable with plan for discharge home on steroids. - Lab Data Result diagrams: 06/20/19 21:00 06/20/19 21:00 Lab Results 06/20/19 06/20/19 06/20/19 Range/Units 21:00 21:00 21:00 WBC 9.3 (3.8-10.6) k/uL RBC 4.07 (3.80-5.40) m/uL Hgb 11.7 (11.4-16.0) gm/dL Hct 35.5 (34.0-46.0) % MCV 87.3 (80.0-100.0) fL MCH 28.6 (25.0-35.0) pg MCHC 32.8 (31.0-37.0) g/dL RDW 15.0 (11.5-15.5) % Plt Count 390 (150-450) k/uL Neutrophils % 70 % Lymphocytes % 16 % Monocytes % 7 % Eosinophils % 4 % Basophils % 2 % Neutrophils # 6.6 (1.3-7.7) k/uL Lymphocytes # 1.5 (1.0-4.8) k/uL Monocytes # 0.6 (0-1.0) k/uL Eosinophils # 0.4 (0-0.7) k/uL Basophils # 0.2 (0-0.2) k/uL PT 10.1 (9.0-12.0) sec INR 0.9 (<1.2) APTT 25.9 (22.0-30.0) sec Sodium 135 L (137-145) mmol/L Potassium 3.7 (3.5-5.1) mmol/L Chloride 97 L (98-107) mmol/L Carbon Dioxide 28 (22-30) mmol/L Anion Gap 10 mmol/L BUN 21 H (7-17) mg/dL Creatinine 0.71 (0.52-1.04) mg/dL Est GFR (CKD-EPI)AfAm >90 (>60 ml/min/1.73 sqM) Est GFR (CKD-EPI)NonAf 81 (>60 ml/min/1.73 sqM) Glucose 122 H (74-99) mg/dL Calcium 10.0 (8.4-10.2) mg/dL Total Bilirubin 0.3 (0.2-1.3) mg/dL AST 36 (14-36) U/L ALT 26 (9-52) U/L Alkaline Phosphatase 121 (38-126) U/L Troponin I (0.000-0.034) ng/mL NT-Pro-B Natriuret Pep pg/mL Total Protein 6.5 (6.3-8.2) g/dL Albumin 3.9 (3.5-5.0) g/dL 06/20/19 06/20/19 Range/Units 21:00 21:00 WBC (3.8-10.6) k/uL RBC (3.80-5.40) m/uL Hgb (11.4-16.0) gm/dL Hct (34.0-46.0) % MCV (80.0-100.0) fL MCH (25.0-35.0) pg MCHC (31.0-37.0) g/dL RDW (11.5-15.5) % Plt Count (150-450) k/uL Neutrophils % % Lymphocytes % % Monocytes % % Eosinophils % % Basophils % % Neutrophils # (1.3-7.7) k/uL Lymphocytes # (1.0-4.8) k/uL Monocytes # (0-1.0) k/uL Eosinophils # (0-0.7) k/uL Basophils # (0-0.2) k/uL PT (9.0-12.0) sec INR (<1.2) APTT (22.0-30.0) sec Sodium (137-145) mmol/L Potassium (3.5-5.1) mmol/L Chloride (98-107) mmol/L Carbon Dioxide (22-30) mmol/L Anion Gap mmol/L BUN (7-17) mg/dL Creatinine (0.52-1.04) mg/dL Est GFR (CKD-EPI)AfAm (>60 ml/min/1.73 sqM) Est GFR (CKD-EPI)NonAf (>60 ml/min/1.73 sqM) Glucose (74-99) mg/dL Calcium (8.4-10.2) mg/dL Total Bilirubin (0.2-1.3) mg/dL AST (14-36) U/L ALT (9-52) U/L Alkaline Phosphatase (38-126) U/L Troponin I <0.012 (0.000-0.034) ng/mL NT-Pro-B Natriuret Pep 121 pg/mL Total Protein (6.3-8.2) g/dL Albumin (3.5-5.0) g/dL Disposition Clinical Impression: COPD (chronic obstructive pulmonary disease) Disposition: HOME SELF-CARE Condition: Stable Instructions (If sedation given, give patient instructions): Chronic Cough (ED) Prescriptions: predniSONE [Deltasone] 40 mg PO DAILY 5 Days #10 tablet Is patient prescribed a controlled substance at d/c from ED?: No Referrals: Nomi Saab DO [Primary Care Provider] - 1-2 days
[2019-06-20] MEDS ORDERED: methylPREDNISolone SOD SUCCI 125 MG/2 ML VIAL IV STA (21:31)
[2019-06-20] MEDS ORDERED: IPRATROPIUM-ALBUTEROL 3 ML NEB INHALATION STA (21:31)
[2019-06-20 21:49] LABS: Basophils # (A) 0.2 k/uL (0-0.2); Basophils % (A) 2 %; Eosinophils # (A) 0.4 k/uL (0-0.7); Eosinophils % (A) 4 %; HCT 35.5 % (34.0-46.0); HGB 11.7 gm/dL (11.4-16.0); Lymphocytes # (A) 1.5 k/uL (1.0-4.8); Lymphocytes % (A) 16 %; MCH 28.6 pg (25.0-35.0); MCHC 32.8 g/dL (31.0-37.0); MCV 87.3 fL (80.0-100.0); Mean Platelet Volume 7.2; Monocytes # (A) 0.6 k/uL (0-1.0); Monocytes % (A) 7 %; Neutrophils # (A) 6.6 k/uL (1.3-7.7); Neutrophils % (A) 70 %; Platelet Count 390 k/uL (150-450); RBC 4.07 m/uL (3.80-5.40); WBC 9.3 k/uL (3.8-10.6)
[2019-06-20 21:59] LABS: INR 0.9 (<1.2); Partial Thromboplastin Time 25.9 sec (22.0-30.0); Prothrombin Time 10.1 sec (9.0-12.0)
[2019-06-20 22:01] LABS: ALT 26 U/L (9-52); AST 36 U/L (14-36); African American GFR (CKD) >90 (>60 ml/min/1.73 sqM); Albumin 3.9 g/dL (3.5-5.0); Alkaline Phosphatase 121 U/L (38-126); Anion Gap 10 mmol/L; Blood Urea Nitrogen 21 mg/dL (7-17); Carbon Dioxide 28 mmol/L (22-30); Chloride 97 mmol/L (98-107); Glucose 122 mg/dL (74-99); Potassium 3.7 mmol/L (3.5-5.1); Sodium 135 mmol/L (137-145); Total Bilirubin 0.3 mg/dL (0.2-1.3); Total Protein 6.5 g/dL (6.3-8.2)
[2019-06-20 22:08] VITALS: RESP 22
--- NOTE | 2019-06-20 22:17 | XR ---
EXAMINATION TYPE: XR chest 2V DATE OF EXAM: 06/20/2019 COMPARISON: 03/04/2019 HISTORY: 83 year-old female shortness of breath, difficulty breathing TECHNIQUE: PA and lateral views FINDINGS: Heart is enlarged. Diffuse interstitial prominence and hyperinflation. Aorta within normal limits. St jet scarring and atelectasis demonstrated. No destinee consolidation or pleural effusion. Some eventra tion of the posterior hemidiaphragm on the lateral view. IMPRESSION: COPD and chronic appearing changes. Scattered strandy scarring or atelectasis. Borderline heart size. No definite acute process.
[2019-06-20 23:44] VITALS: BP 107/60; PULSE 96; TEMP 98.6
== END 2019-06-20 23:52 | disposition home or self-care (01) ==
LOC: MERGE 20:07 → EC 20:07
DX: J44.9 Chronic obstructive pulmonary disease, unspecified (principal); R68.83 Chills (without fever); I10 Essential (primary) hypertension; Z87.891 Personal history of nicotine dependence; Z79.82 Long term (current) use of aspirin; Z79.51 Long term (current) use of inhaled steroids; Z79.899 Other long term (current) drug therapy
CPT/HCPCS: 36415; 94640; 93005; 83880; 80053; 84484; 85025; 85610; 85730; 71046; 99285; 96374; J2930

== ENCOUNTER → 2019-07-01 | Outpatient (CLI) | payer MEDICARE ==
--- NOTE | 2019-07-02 11:40 | ECHOF ---
Referral Reason:J96.11 Chronic hypoxemic respiratory failure MEASUREMENTS -------- HEIGHT: 154.9 cm WEIGHT: 64.0 kg BP: RVIDd: 2.7 cm (< 3.3) IVSd: 1.4 cm (0.6 - 1.1) LVIDd: 3.1 cm (3.9 - 5.3) LVPWd: 1.5 cm (0.6 - 1.1) IVSs: 1.6 cm LVIDs: 1.5 cm LVPWs: 1.8 cm LAESV Index (A-L): 16.08 ml/m Ao Diam: 3.0 cm (2.0 - 3.7) AV Cusp: 1.2 cm (1.5 - 2.6) LA Diam: 3.4 cm (2.7 - 3.8) MV EXCURSION: 16.659 mm (> 18.000) MV EF SLOPE: 53 mm/s (70 - 150) EPSS: 0.2 cm MV E Taiwo: 0.52 m/s MV DecT: 142 ms MV A Taiwo: 1.06 m/s MV E/A Ratio: 0.49 AV maxP.43 mmHg AV meanP.50 mmHg RAP: 5.00 mmHg RVSP: 13.70 mmHg FINDINGS -------- Sinus rhythm. Resting tachycardia (HR>100bpm). This was a technically difficult study with suboptimal views. Pt has severe COPD. Sitting up. The left ventricular size is normal. There is moderate concentric left ventricular hypertrophy. O verall left ventricular systolic function is normal with, an EF between 55 - 60 %. The diastolic fi lling pattern is normal for the age of the patient 11.42. The right ventricle is normal in size. Normal LA size by volume 22+/-6 ml/m2. The right atrial size is normal. There is mild aortic valve sclerosis. Peak/mean gradient across the Aortic Valve is 12.43mmHg / 7.5 0mmHg. The mitral valve leaflets are mildly thickened. There is trace to mild mitral regurgitation. Mild tricuspid regurgitation present. Right ventricular systolic pressure is normal at < 35 mmHg. The pulmonic valve was not well visualized. There is no pulmonic regurgitation present. The aortic root size is normal. Normal inferior vena cava with normal inspiratory collapse consistent with estimated right atrial pre ssure of 5 mmHg. The pulmonary veins were not recorded. There is no pericardial effusion. CONCLUSIONS -------- 1. Sinus rhythm. 2. Resting tachycardia (HR>100bpm). 3. This was a technically difficult study with suboptimal views. 4. Pt has severe COPD. Sitting up. 5. The left ventricular size is normal. 6. There is moderate concentric left ventricular hypertrophy. 7. Overall left ventricular systolic function is normal with, an EF between 55 - 60 %. 8. The diastolic filling pattern is normal for the age of the patient 11.42 9. Normal LA size by volume 22+/-6 ml/m2. 10. There is mild aortic valve sclerosis. 11. Peak/mean gradient across the Aortic Valve is 12.43mmHg / 7.50mmHg. 12. The mitral valve leaflets are mildly thickened. 13. There is trace to mild mitral regurgitation. 14. Mild tricuspid regurgitation present. 15. Right ventricular systolic pressure is normal at < 35 mmHg. 16. The pulmonic valve was not well visualized. 17. The aortic root size is normal. 18. Normal inferior vena cava with normal inspiratory collapse consistent with estimated right atrial pressure of 5 mmHg. 19. The pulmonary veins were not recorded. 20. There is no pericardial effusion. [employer]: Corin Pitts RDCS
== END | disposition home or self-care (01) ==
LOC: RADECHMAIN 15:02
PROVIDERS: ATTEND Family Medicine
DX: I08.1 Rheumatic disorders of both mitral and tricuspid valves (principal); J44.9 Chronic obstructive pulmonary disease, unspecified
CPT/HCPCS: 93306

== ENCOUNTER → 2019-08-13 | Outpatient (CLI) | payer MEDICARE | END | disposition home or self-care (01) | LOC: LABWHC1 15:00 | DX: J41.0 Simple chronic bronchitis (principal) | CPT/HCPCS: 87070; 87205 ==